=== PATIENT | female | born 1965 | race African-American/Black ===

== ENCOUNTER 2017-01-29 15:43 | Emergency (ER) | payer BC ==
[~2017-01-29] VITALS: Ht 154.9 cm; Wt 81.6 kg
[~2017-01-29 15:43] MED LIST: AMLO10TA2 PO; AMLO5TAB4 PO; CARV12.52 PO; CHOL10002 PO; CLON0.1T PO; FLUO20CA8 PO; HYDR-2869 PO; HYDR12.53 PO; LISI10TA2 PO; LISI40TA PO; MELA3TAB PO; METO-269 PO; PANT40TA5 PO; TRAM50TA PO; amlodipine; hctz; hydralazine; metoprolol; prozac
[2017-01-29] MEDS ORDERED: FLUT12AE IH (16:05)
[2017-01-29] MEDS ORDERED: PROAIR HFA8.5 GM INH (16:05)
[2017-01-29] MEDS ORDERED: HYDR-971 PO (16:06)
[2017-01-29 17:30] LABS: BASO % 1 % (0-3); EOS % 4 % (0-3); HEMATOCRIT 43.1 % (36.0-47.0); HEMOGLOBIN 13.7 g/dL (12.0-15.5); LYMPH # 1.4 x10^3/uL (1.0-4.8); LYMPH % 24 % (24-48); MEAN CORPUSCULAR HEMOGLOBIN 27 pg (25-35); MEAN CORPUSCULAR HGB CONC 32 g/dL (31-37); MEAN CORPUSCULAR VOLUME 84 fL (79-100); MONO % 14 % (0-9); NEUT % 58 % (31-73); PLATELET COUNT 265 x10^3/uL (140-400); RED BLOOD COUNT 5.12 x10^6/uL (3.50-5.40); RED CELL DISTRIBUTION WIDTH 15.4 % (11.5-14.5); WHITE BLOOD COUNT 5.7 x10^3/uL (4.0-11.0)
[2017-01-29 17:31] LABS: BILIRUBIN,URINE NEGATIVE (NEG); GLUCOSE,URINE NEGATIVE (NEG); NITRITE,URINE NEGATIVE (NEG); PROTEIN,URINE 100 mg/dL (NEG-TRACE); UROBILINOGEN,URINE 0.2 mg/dL (0.2 mg/dL)
[2017-01-29 17:37] LABS: RBC,URINE 0 /HPF (0-2)
[2017-01-29 17:38] LABS: BACTERIA,URINE FEW /HPF (0-FEW); SQUAMOUS EPITHELIAL CELL,UR FEW /LPF; WBC,URINE RARE /HPF (0-4)
[2017-01-29 17:49] LABS: CALCIUM 9.4 mg/dL (8.5-10.1); CREATININE 1.7 mg/dL (0.6-1.0); GFR 38.2; POTASSIUM 4.7 mmol/L (3.5-5.1)
[2017-01-29 17:53] LABS: ALBUMIN 3.9 g/dL (3.4-5.0); ALBUMIN/GLOBULIN RATIO 0.8 (1.0-1.7); TOTAL BILIRUBIN 0.3 mg/dL (0.2-1.0); TOTAL PROTEIN 8.9 g/dL (6.4-8.2)
--- NOTE | 2017-01-29 18:02 | RAD ---
CT head without contrast Indication: Headache and hypertension. Axial imaging through the brain was performed without contrast. No prior studies are available for comparison. The ventricles and sulci are within normal limits. No sulcal effacement, midline shift or hemorrhage is detected. The cisterns are patent. Visualized paranasal sinuses are clear apart from opacification of several right side ethmoid air cells. Impression: No acute intracranial process is detected. Electronically signed by: Tim Phillips MD (Jan 29, 2017 18:00:54)
[2017-01-29] MEDS ORDERED: hydrALAZINE 20 MG/ML VIAL. IVP ONE (18:15)
[2017-01-29 19:12] VITALS: BP 194/117
--- NOTE | 2017-01-29 19:26 | PHYS DOC ---
Past Medical History Past Medical History: Asthma, GERD, Hypertension Additional Past Medical Histor: scleraderma, KIDNEY DISEASE, PULMONARY HTN Past Surgical History: Other Additional Past Surgical Histo: fibroid removal, carpel tunnel Alcohol Use: Occasionally Drug Use: None Adult General Chief Complaint Chief Complaint: DIZZY/LIGHT HEADED HPI HPI 51-year-old female with difficult to control hypertension among other medical problems presents with 12 hour history of dizziness and headache. She denies any chest pain or shortness of breath. She denies any lateralizing neurologic weakness. She states the dizziness and headache sometimes happen when her blood pressure is elevated. She has 3 different blood pressure medications that she takes reliably at home. Review of Systems Review of Systems Constitutional: Denies fever or chills [] Eyes: Denies change in visual acuity, redness, or eye pain [] HENT: Denies nasal congestion or sore throat [] Respiratory: Denies cough or shortness of breath [] Cardiovascular: No additional information not addressed in HPI [] GI: Denies abdominal pain, nausea, vomiting, bloody stools or diarrhea [] : Denies dysuria or hematuria [] Musculoskeletal: Denies back pain or joint pain [] Integument: Denies rash or skin lesions [] Neurologic: Per history of present illness [] Endocrine: Denies polyuria or polydipsia [] Current Medications Current Medications Current Medications Medications (Trade) Dose Ordered Sig/Orin Start Time Stop Time Status Last Admin Dose Admin Hydralazine HCl (Apresoline) 10 mg 1X ONCE 01/29/17 18:15 01/29/17 18:16 DC 01/29/17 18:18 10 MG Allergies Allergies Allergies Coded Allergies Type Severity Reaction Last Updated Verified No Known Drug Allergies 07/08/15 No Physical Exam Physical Exam Constitutional: Well developed, well nourished, mild distress, non-toxic appearance. [] HENT: Normocephalic, atraumatic, bilateral external ears normal, oropharynx moist, no oral exudates, nose normal. [] Eyes: PERRLA, EOMI, conjunctiva normal, no discharge. [] Neck: Normal range of motion, no tenderness, supple, no stridor. [] Cardiovascular:Heart rate regular rhythm, no murmur [] Lungs & Thorax: Bilateral breath sounds clear to auscultation [] Abdomen: Bowel sounds normal, soft, no tenderness, no masses, no pulsatile masses. [] Skin: Warm, dry, no erythema, no rash. [] Back: No tenderness, no CVA tenderness. [] Extremities: No tenderness, no cyanosis, no clubbing, ROM intact, no edema. [] Neurologic: Alert and oriented X 3, normal motor function, normal sensory function, no focal deficits noted. [] Psychologic: Affect normal, judgement normal, mood normal. [] Current Patient Data Vital Signs Vital Signs Date Time Temp Pulse Resp B/P Pulse Ox O2 Delivery O2 Flow Rate FiO2 01/29/17 18:18 74 218/138 01/29/17 17:21 16 96 Room Air 01/29/17 15:54 97.4 97.4 Lab Values Laboratory Tests Test 01/29/17 16:00 01/29/17 16:08 White Blood Count 5.7x10^3/uL (4.0-11.0) Red Blood Count 5.12x10^6/uL (3.50-5.40) Hemoglobin 13.7g/dL (12.0-15.5) Hematocrit 43.1% (36.0-47.0) Mean Corpuscular Volume 84fL (79-100) Mean Corpuscular Hemoglobin 27pg (25-35) Mean Corpuscular Hemoglobin Concent 32g/dL (31-37) Red Cell Distribution Width 15.4% (11.5-14.5) H Platelet Count 265x10^3/uL (140-400) Neutrophils (%) (Auto) 58% (31-73) Lymphocytes (%) (Auto) 24% (24-48) Monocytes (%) (Auto) 14% (0-9) H Eosinophils (%) (Auto) 4% (0-3) H Basophils (%) (Auto) 1% (0-3) Neutrophils # (Auto) 3.3x10^3uL (1.8-7.7) Lymphocytes # (Auto) 1.4x10^3/uL (1.0-4.8) Monocytes # (Auto) 0.8x10^3/uL (0.0-1.1) Eosinophils # (Auto) 0.2x10^3/uL (0.0-0.7) Basophils # (Auto) 0.0x10^3/uL (0.0-0.2) Sodium Level 139mmol/L (136-145) Potassium Level 4.7mmol/L (3.5-5.1) Chloride Level 99mmol/L (98-107) Carbon Dioxide Level 28mmol/L (21-32) Anion Gap 12 (6-14) Blood Urea Nitrogen 28mg/dL (7-20) H Creatinine 1.7mg/dL (0.6-1.0) H Estimated GFR (Cockcroft-Gault) 38.2 BUN/Creatinine Ratio 16 (6-20) Glucose Level 116mg/dL (70-99) H Calcium Level 9.4mg/dL (8.5-10.1) Total Bilirubin 0.3mg/dL (0.2-1.0) Aspartate Amino Transferase (AST) 14U/L (15-37) L Alanine Aminotransferase (ALT) 12U/L (14-59) L Alkaline Phosphatase 84U/L (46-116) Total Protein 8.9g/dL (6.4-8.2) H Albumin 3.9g/dL (3.4-5.0) Albumin/Globulin Ratio 0.8 (1.0-1.7) L Urine Collection Type Unknown Urine Color Yellow Urine Clarity Clear Urine pH 7.0 Urine Specific [place] 1.015 Urine Protein 100mg/dL (NEG-TRACE) Urine Glucose (UA) Negativemg/dL (NEG) Urine Ketones (Stick) Negativemg/dL (NEG) Urine Blood Negative (NEG) Urine Nitrite Negative (NEG) Urine Bilirubin Negative (NEG) Urine Urobilinogen Dipstick 0.2mg/dL (0.2 mg/dL) Urine Leukocyte Esterase Negative (NEG) Urine RBC 0/HPF (0-2) Urine WBC Rare/HPF (0-4) Urine Squamous Epithelial Cells Few/LPF Urine Bacteria Few/HPF (0-FEW) Urine Mucus Slight/LPF Laboratory Tests 01/29/17 16:00 Laboratory Tests 01/29/17 16:00 EKG EKG [] Radiology/Procedures Radiology/Procedures [] Impressions: PROCEDURE: HEAD WO CONTRAST CT head without contrast Indication: Headache and hypertension. Axial imaging through the brain was performed without contrast. No prior studies are available for comparison. The ventricles and sulci are within normal limits. No sulcal effacement, midline shift or hemorrhage is detected. The cisterns are patent. Visualized paranasal sinuses are clear apart from opacification of several right side ethmoid air cells. Impression: No acute intracranial process is detected. Course & Med Decision Making Course & Med Decision Making Pertinent Labs and Imaging studies reviewed. (See chart for details) [ED course: Evaluation reveals 51-year-old female in mild distress secondary to headache and dizziness. Her blood pressure was markedly elevated at 230/120 on arrival. She was given hydralazine IV which lowered her blood pressure in the 190s systolic range and patient states her symptoms have resolved. I did talk with the patient about staying in the hospital overnight however she stated she would like to go home and take her blood pressure medicine and rest. She states that she'll even stay home from work tomorrow to continue to rest and closely monitor blood pressure. I think this plan as a viable alternative to admission.] Dragon Disclaimer Dragon Disclaimer This electronic medical record was generated, in whole or in part, using a voice recognition dictation system. Departure Departure Impression: Primary Impression: Malignant essential hypertension Disposition: 01 HOME, SELF-CARE Condition: IMPROVED Referrals: CHRIS HALL (PCP) Patient Instructions: Hypertension Additional Instructions: Please take your blood pressure medication as directed. Return to the emergency department with any new or concerning symptoms. PAYTON HERNANDEZ DO Jan 29, 2017 19:26
--- NOTE | 2017-01-30 06:09 | EKG ---
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
== END 2017-01-29 19:33 | disposition home or self-care (01) ==
LOC: ER 15:43
DX: I10 Essential (primary) hypertension (principal); J45.909 Unspecified asthma, uncomplicated
CPT/HCPCS: 36415; 70450; 80053; 81001; 85027; 93005; 96374; 99285; J0360

== ENCOUNTER 2017-10-14 17:00 | Inpatient (IN) | payer BC ==
[~2017-10-14] VITALS: Ht 154.9 cm; Wt 79.2 kg
[~2017-10-14 17:00] MED LIST changes: +FLUT12AE IH; +HYDR-971 PO; -MELA3TAB PO; +MELA3TAB2 PO; +PROAIR HFA8.5 GM INH
--- NOTE | 2017-10-14 19:10 | PHYS DOC ---
Past Medical History Past Medical History: Asthma, GERD, Hypertension Additional Past Medical Histor: scleraderma, KIDNEY DISEASE, PULMONARY HTN Past Surgical History: Other Additional Past Surgical Histo: fibroid removal, carpel tunnel Alcohol Use: Occasionally Drug Use: None Adult General Chief Complaint Chief Complaint: SHORTNESS OF BREATH HPI HPI Patient is a 52 year old female who presents with sent from the office due to extremely high blood pressures she was following up on 4 some dyspnea on exertion. She has chronic hypertension takes lisinopril hydralazine carvedilol and Lasix. Also has chronic kidney failure still make urine not on dialysis. Denies chest pain or leg swelling. Her pressure initially here was around 240/ 130. Review of Systems Review of Systems Constitutional: Denies fever or chills [] Eyes: Denies change in visual acuity, redness, or eye pain [] HENT: Denies nasal congestion or sore throat [] Respiratory: Denies cough or shortness of breath [] Cardiovascular: No additional information not addressed in HPI [] GI: Denies abdominal pain, nausea, vomiting, bloody stools or diarrhea [] : Denies dysuria or hematuria [] Musculoskeletal: Denies back pain or joint pain [] Integument: Denies rash or skin lesions [] Neurologic: Denies headache, focal weakness or sensory changes [] Endocrine: Denies polyuria or polydipsia [] All other systems were reviewed and found to be within normal limits, except as documented in this note. Current Medications Current Medications Current Medications Medications (Trade) Dose Ordered Sig/Orin Start Time Stop Time Status Last Admin Dose Admin Hydralazine HCl (Apresoline Inj) 10 mg 1X ONCE 10/14/17 20:45 10/14/17 20:46 DC 10/14/17 20:48 10 MG Labetalol HCl (Normodyne) 20 mg 1X ONCE 10/14/17 19:45 10/14/17 19:47 DC 10/14/17 19:51 20 MG Morphine Sulfate 4 mg PRN Q2HR PRN 10/14/17 21:00 10/15/17 20:59 Ondansetron HCl (Zofran) 4 mg PRN Q8HRS PRN 10/14/17 21:00 10/15/17 20:59 Allergies Allergies Allergies Coded Allergies Type Severity Reaction Last Updated Verified No Known Drug Allergies 07/08/15 No Physical Exam Physical Exam Constitutional: Well developed, well nourished, no acute distress, non-toxic appearance. [] HENT: Normocephalic, atraumatic, bilateral external ears normal, oropharynx moist, no oral exudates, nose normal. [] Eyes: PERRLA, EOMI, conjunctiva normal, no discharge. [] Neck: Normal range of motion, no tenderness, supple, no stridor. [] Cardiovascular:Heart rate regular rhythm, no murmur [] Lungs & Thorax: Bilateral breath sounds clear to auscultation [] Abdomen: Bowel sounds normal, soft, no tenderness, no masses, no pulsatile masses. [] Skin: Warm, dry, no erythema, no rash. [] Back: No tenderness, no CVA tenderness. [] Extremities: No tenderness, no cyanosis, no clubbing, ROM intact, no edema. [] Neurologic: Alert and oriented X 3, normal motor function, normal sensory function, no focal deficits noted. [] Psychologic: Affect normal, judgement normal, mood normal. [] Current Patient Data Vital Signs Vital Signs Date Time Temp Pulse Resp B/P (MAP) Pulse Ox O2 Delivery O2 Flow Rate FiO2 10/14/17 21:04 81 174/107 (129) 97 Room Air 10/14/17 18:40 97.6 18 97.6 Lab Values Laboratory Tests Test 10/14/17 19:36 White Blood Count 6.5 x10^3/uL (4.0-11.0) Red Blood Count 5.35 x10^6/uL (3.50-5.40) Hemoglobin 14.4 g/dL (12.0-15.5) Hematocrit 43.9 % (36.0-47.0) Mean Corpuscular Volume 82 fL (79-100) Mean Corpuscular Hemoglobin 27 pg (25-35) Mean Corpuscular Hemoglobin Concent 33 g/dL (31-37) Red Cell Distribution Width 15.1 % (11.5-14.5) H Platelet Count 289 x10^3/uL (140-400) Neutrophils (%) (Auto) 72 % (31-73) Lymphocytes (%) (Auto) 14 % (24-48) L Monocytes (%) (Auto) 13 % (0-9) H Eosinophils (%) (Auto) 1 % (0-3) Basophils (%) (Auto) 1 % (0-3) Neutrophils # (Auto) 4.7 x10^3uL (1.8-7.7) Lymphocytes # (Auto) 0.9 x10^3/uL (1.0-4.8) L Monocytes # (Auto) 0.9 x10^3/uL (0.0-1.1) Eosinophils # (Auto) 0.1 x10^3/uL (0.0-0.7) Basophils # (Auto) 0.0 x10^3/uL (0.0-0.2) Sodium Level 137 mmol/L (136-145) Potassium Level 4.1 mmol/L (3.5-5.1) Chloride Level 97 mmol/L (98-107) L Carbon Dioxide Level 31 mmol/L (21-32) Anion Gap 9 (6-14) Blood Urea Nitrogen 18 mg/dL (7-20) Creatinine 1.4 mg/dL (0.6-1.0) H Estimated GFR (Cockcroft-Gault) 47.6 BUN/Creatinine Ratio 13 (6-20) Glucose Level 88 mg/dL (70-99) Calcium Level 10.1 mg/dL (8.5-10.1) Total Bilirubin 0.4 mg/dL (0.2-1.0) Aspartate Amino Transferase (AST) 20 U/L (15-37) Alanine Aminotransferase (ALT) 18 U/L (14-59) Alkaline Phosphatase 80 U/L (46-116) Troponin I Quantitative 0.046 ng/mL (0.000-0.055) Total Protein 9.4 g/dL (6.4-8.2) H Albumin 4.1 g/dL (3.4-5.0) Albumin/Globulin Ratio 0.8 (1.0-1.7) L Laboratory Tests 10/14/17 19:36 Laboratory Tests 10/14/17 19:36 EKG EKG EKG shows sinus rhythm rate of 82 no STEMI no strain pattern QTC 459 my interpretation[] Radiology/Procedures Radiology/Procedures Chest x-ray[some cardiomegaly but no charleen pulmonary edema or failure interpretation Course & Med Decision Making Course & Med Decision Making Pertinent Labs and Imaging studies reviewed. (See chart for details) Patient is essentially asymptomatic. She has no complaints of chest pain leg edema or shortness of breath at this time. We gave her 20 of labetalol with improvement in her blood pressure to about 180 over 1 tensest systolic over diastolic and we will give an additional 10 of hydralazine. I plan to contact Dr. aHll to discuss further management plans[] 8:[address] Hall prefers to be admitted for 24 hours for further management. Dragon Disclaimer Dragon Disclaimer This electronic medical record was generated, in whole or in part, using a voice recognition dictation system. Departure Departure Impression: Primary Impression: Hypertensive urgency Additional Impression: Chronic renal insufficiency Disposition: ADMITTED INPATIENT Admitting Physician: Mitzy Neal Condition: IMPROVED Referrals: CHRIS HALL (PCP) Problem Qualifiers MAX MCKAY MD Oct 14, 2017 19:10
[2017-10-14] MEDS ORDERED: LABETALOL 20 MG/4 ML DISP.SYRIN. IVP ONE (19:45)
[2017-10-14 19:53] LABS: BASO % 1 % (0-3); EOS % 1 % (0-3); HEMATOCRIT 43.9 % (36.0-47.0); HEMOGLOBIN 14.4 g/dL (12.0-15.5); LYMPH # 0.9 x10^3/uL (1.0-4.8); LYMPH % 14 % (24-48); MEAN CORPUSCULAR HEMOGLOBIN 27 pg (25-35); MEAN CORPUSCULAR HGB CONC 33 g/dL (31-37); MEAN CORPUSCULAR VOLUME 82 fL (79-100); MONO % 13 % (0-9); NEUT % 72 % (31-73); PLATELET COUNT 289 x10^3/uL (140-400); RED BLOOD COUNT 5.35 x10^6/uL (3.50-5.40); RED CELL DISTRIBUTION WIDTH 15.1 % (11.5-14.5); WHITE BLOOD COUNT 6.5 x10^3/uL (4.0-11.0)
[2017-10-14 20:06] LABS: CALCIUM 10.1 mg/dL (8.5-10.1); CREATININE 1.4 mg/dL (0.6-1.0); GFR 47.6; POTASSIUM 4.1 mmol/L (3.5-5.1)
[2017-10-14 20:12] LABS: ALBUMIN 4.1 g/dL (3.4-5.0); ALBUMIN/GLOBULIN RATIO 0.8 (1.0-1.7); TOTAL BILIRUBIN 0.4 mg/dL (0.2-1.0); TOTAL PROTEIN 9.4 g/dL (6.4-8.2)
[2017-10-14] MEDS ORDERED: hydrALAZINE 20 MG/ML VIAL. IVP ONE (20:45)
[2017-10-14] MEDS ORDERED: ONDANSETRON PF 4 MG/2 ML VIAL. IV PRN (21:00)
[2017-10-14] MEDS ORDERED: MORPHINE SULFATE 4 MG/ML DISP.SYRIN. IV PRN (21:00)
[2017-10-14 21:35] VITALS: BP 176/113
[2017-10-14] MEDS ORDERED: MOME13HF IH (21:42)
[2017-10-14 23:30] VITALS: BP 144/96
[2017-10-15 03:30] VITALS: BP 196/123
[2017-10-15] MEDS ORDERED: hydrALAZINE 25 MG TABLET PO PRN (03:45)
[2017-10-15] MEDS: PANTOPRAZOLE 40 MG TABLET.DR. PO SCH (04:03)
--- NOTE | 2017-10-15 07:01 | EKG ---
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
[2017-10-15 07:41] VITALS: BP 162/100
--- NOTE | 2017-10-15 08:19 | RAD ---
Portable chest, 10/14/2017: History: Shortness of breath, hypertensive crisis Comparison is made to a study from 06/15/2016. The heart is enlarged. The pulmonary vascularity is normal. No pulmonary infiltrates are seen. There is no evidence of pleural fluid. Moderate scattered degenerative changes are present in the spine. IMPRESSION: 1. Cardiomegaly. 2. No acute abnormality is detected.
[2017-10-15] MEDS ORDERED: NON FORMULARY ITEM (Fluticasone Propionate (Flovent 110MCG Hfa) 2 PUFF) IH SCH (09:00)
[2017-10-15] MEDS ORDERED: NON FORMULARY ITEM (Albuterol Sulfate (Proair Hfa Inhaler) 1 PUFF) INH PRN (09:00)
[2017-10-15] MEDS ORDERED: METOPROLOL TART IMMED RELEASE 25 MG TABLET. PO SCH (09:00)
[2017-10-15] MEDS ORDERED: PANTOPRAZOLE 40 MG TABLET.DR. PO SCH (09:00)
[2017-10-15] MEDS ORDERED: NON FORMULARY ITEM (Mometasone/Formoterol (Dulera 200 Mcg/5 Mcg Inhaler) 2 PUFF) IH SCH (09:00)
[2017-10-15] MEDS ORDERED: ALBUTEROL SULFATE 2.5 MG/3 ML NEBU. NEB PRN (09:15)
[2017-10-15] MEDS: CHOLECALCIFEROL (VITAMIN D3) 1,000 UNIT TABLET PO SCH (09:34)
[2017-10-15] MEDS: FLUoxetine HCL 20 MG CAPSULE PO SCH ×2 (09:35→21:11)
[2017-10-15] MEDS: LISINOPRIL 40 MG TABLET. PO SCH (09:35)
[2017-10-15] MEDS: HYDROcodone/APAP 5/325MG 1 TAB TABLET PO PRN ×2 (09:40→15:14)
--- NOTE | 2017-10-15 09:52 | PDOC ---
Provider Note Provider Note Pt seen .H&P dictated. #[id number] MIRI KNOTT MD Oct 15, 2017 09:52
--- NOTE | 2017-10-15 11:02 | HP ---
ADMIT DATE: 10/14/2017 PATIENT LOCATION: [facility]. ATTENDING PHYSICIAN: Dr. Knott. PRIMARY CARE PHYSICIAN: Dr. Abdul. REASON FOR ADMISSION TO THE HOSPITAL: Accelerated hypertension. HISTORY OF PRESENT ILLNESS: The patient is a 52-year-old female, patient of Dr. Abdul. She has history of hypertension, scleroderma, asthma, GERD and pulmonary hypertension. The patient had seen Dr. Bradly Marcelino of Renal and Dr. Renteria, Pulmonology, in the past. She had seen Dr. Abdul in the office yesterday, her blood pressure was high at 190/110 and was sent to the Emergency Room. The patient had a workup including EKG, chest x-ray, did not show any acute changes. The patient's blood pressure was still high, we decided to admit the patient. The patient was given IV hydralazine, and blood pressure was still high this morning, and she is asymptomatic at this point. PAST MEDICAL HISTORY: As mentioned, she has history of hypertension, scleroderma, GERD, pulmonary hypertension. She was in the hospital last year with similar complaints, and she had a workup done including CT chest, echocardiogram, ultrasound of the kidneys, which did not show any major problems except for left ventricular hypertrophy. PAST SURGICAL HISTORY: Carpal tunnel, fibroids removed. She is not on any special medications for scleroderma. ALLERGIES: None. MEDICATIONS AT HOME: The patient is on amlodipine 5 mg tablet, she takes 10 mg at bedtime. Coreg 25 mg twice a day, lisinopril 40 mg daily, fluoxetine 20 mg daily, vitamin D takes 2000 daily, hydrocodone for pain, melatonin 10 mg at bedtime. Dulera 200/5 two puffs twice a day, Protonix 40 mg daily, albuterol 2 puffs 4 times daily. PERSONAL HISTORY: No history of smoking, alcohol, drug abuse. FAMILY HISTORY: Positive for hypertension. REVIEW OF SYMPTOMS: CARDIAC: No chest pain. LUNGS: No shortness of breath. GASTROINTESTINAL: Has reflux symptoms. Rest of the 14 systems were reviewed. She has been complaining of sore throat in the last couple of days and swelling in the ankles. PHYSICAL EXAMINATION: GENERAL: She is not in any distress. Pleasant. VITAL SIGNS: Show temperature 97, pulse 88, respirations 18, blood pressure 220/127, pulse ox 97 on room air. HEENT: Head is atraumatic. Pupils equal. Oral cavity: No congestion. NECK: Supple. Thyroid not enlarged. JVD not elevated. No carotid bruit. CHEST: Symmetrical. CARDIOVASCULAR: S1, S2. No murmurs. LUNGS: Clear to auscultation. No wheezing. ABDOMEN: Soft, no mass palpable. EXTERNAL GENITALIA: Deferred. RECTAL: Deferred. EXTREMITIES: Trace edema, no calf tenderness. Pulses 1+. NEUROLOGIC: Cranial nerves intact. Power 5/5 in both upper and lower extremities. LABORATORY DATA: Shows a white count of 6, hemoglobin 14, platelets 289. Electrolytes show sodium 137, potassium 4.1, chloride 97, bicarbonate 31, BUN 18, creatinine 1.4, glucose 88. LFTs were normal. Troponin was negative. Chest x-ray shows cardiac enlargement, no infiltrates. EKG negative for ischemia. FINAL IMPRESSION: 1. Malignant hypertension. 2. History of hypertension. 3. Scleroderma. 4. Gastroesophageal reflux disease. 5. Asthma. PLAN: At this time, the patient is admitted to the hospital. Since the patient had most of workup done last admission last year, including echo, ultrasound of the kidneys and CT of the chest, CT head, we would limit the workup at this time to control the blood pressure with IV hydralazine, renal consult, renal artery Doppler as well as 24-hour urine for VMA and metanephrines. DVT prophylaxis. Probable length of stay 48 hours. MIRI KNOTT MD DR: LINCOLN/darrell JOB#: [id number] / [id number] ANDREA
[2017-10-15 11:20] VITALS: BP 155/112
[2017-10-15] MEDS: ALBUTEROL SULFATE 2.5 MG/3 ML NEBU. NEB SCH ×3 (11:42→20:18)
[2017-10-15] MEDS: CARVEDILOL 12.5 MG TABLET. PO SCH ×2 (12:00→17:59)
[2017-10-15 14:23] LABS: BILIRUBIN,URINE NEGATIVE (NEG); GLUCOSE,URINE NEGATIVE (NEG); NITRITE,URINE NEGATIVE (NEG); PROTEIN,URINE 100 mg/dL (NEG-TRACE); UROBILINOGEN,URINE 0.2 mg/dL (0.2 mg/dL)
[2017-10-15 14:37] LABS: RBC,URINE 0 /HPF (0-2)
[2017-10-15 14:38] LABS: BACTERIA,URINE 0 /HPF (0-FEW); SQUAMOUS EPITHELIAL CELL,UR OCC /LPF; WBC,URINE OCC /HPF (0-4)
[2017-10-15 15:02] VITALS: BP 165/108
--- NOTE | 2017-10-15 17:10 | RAD ---
Deep Doppler renal ultrasound, 10/15/2017: History: Hypertension Doppler interrogation of the main renal arteries was performed including grayscale, color-flow and spectral Doppler analysis. No high velocities are identified in either main renal artery to suggest significant renal artery stenosis. No parvus/tardus phenomena is evident. The right kidney measures 8.9 cm in length while the left kidney measures 9.3 cm. The kidneys demonstrate mildly increased renal parenchymal echogenicity compatible with nonspecific medical renal disease. IMPRESSION: No duplex evidence of significant renal artery stenosis.
[2017-10-15 19:42] VITALS: BP 121/87
[2017-10-15] MEDS: BUDESONIDE 0.5 MG/2 ML NEBU. NEB SCH (20:18)
[2017-10-15] MEDS ORDERED: NON FORMULARY ITEM (Melatonin 10 MG) PO SCH (21:00)
[2017-10-15] MEDS ORDERED: amLODIPine BESYLATE 10 MG TABLET PO SCH (21:00)
[2017-10-15] MEDS ORDERED: CALCIUM CARBONATE 500 MG TAB.CHEW PO PRN (21:30)
[2017-10-15 23:25] VITALS: BP 139/93
[2017-10-16] MEDS: hydrALAZINE 20 MG/ML VIAL. IVP PRN ×2 (03:06→11:42)
[2017-10-16 03:30] VITALS: BP 177/109
[2017-10-16 05:25] LABS: BASO % 1 % (0-3); EOS % 2 % (0-3); HEMATOCRIT 41.8 % (36.0-47.0); HEMOGLOBIN 13.3 g/dL (12.0-15.5); LYMPH # 1.3 x10^3/uL (1.0-4.8); LYMPH % 30 % (24-48); MEAN CORPUSCULAR HEMOGLOBIN 26 pg (25-35); MEAN CORPUSCULAR HGB CONC 32 g/dL (31-37); MEAN CORPUSCULAR VOLUME 82 fL (79-100); MONO % 18 % (0-9); NEUT % 49 % (31-73); PLATELET COUNT 285 x10^3/uL (140-400); RED BLOOD COUNT 5.09 x10^6/uL (3.50-5.40); RED CELL DISTRIBUTION WIDTH 15.1 % (11.5-14.5); WHITE BLOOD COUNT 4.4 x10^3/uL (4.0-11.0)
[2017-10-16 05:45] LABS: CALCIUM 9.4 mg/dL (8.5-10.1); GFR 31.5
[2017-10-16 07:36] VITALS: BP 136/94
[2017-10-16] MEDS: BUDESONIDE 0.5 MG/2 ML NEBU. NEB SCH (07:43)
[2017-10-16] MEDS: ALBUTEROL SULFATE 2.5 MG/3 ML NEBU. NEB SCH ×2 (07:43→11:16)
--- NOTE | 2017-10-16 09:46 | PDOC ---
PROGRESS NOTES Subjective Subjective feeling better wanting to go home Objective Objective Vital Signs Date Time Temp Pulse Resp B/P (MAP) Pulse Ox O2 Delivery O2 Flow Rate FiO2 10/16/17 07:43 98 Room Air 10/16/17 07:36 97.9 71 16 136/94 (108) 97.9 Intake and Output 10/16/17 07:00 Intake Total 1300 ml Output Total 700 ml Balance 600 ml Intake Oral 1300 ml Output Urine Total 700 ml Physical Exam Abdomen: Normal bowel sounds, Soft Heart: Regular rate, Normal S1, Normal S2 Extremities: No clubbing General: Alert HEENT: Atraumatic Lungs: Clear to auscultation MUSCULOSKELETAL: No deformity, Osteoarthritic changes both hands Neck: Supple Neuro: Normal speech Psych/Mental Status: Mental status NL Skin: No breakdown Diagnosis Problem List Problems Medical Problems: (1) Chronic renal insufficiency Status: Acute (2) Hypertensive urgency Status: Acute Assessment Assessment Problems Medical Problems: (1) Chronic renal insufficiency Status: Acute (2) Hypertensive urgency Status: Acute FINAL IMPRESSION: 1. Malignant hypertension. 2. History of hypertension. 3. Scleroderma. 4. Gastroesophageal reflux disease. 5. Asthma. 6. ELLA from htn crisis PLAN: renal artery doppler neg 24 hour urine in process. BP improved d/c home f/u office in 2 days , check kidney function , cr 2.0 today.should come down in 1 week. At this time, the patient is admitted to the hospital. Since the patient had most of workup done last admission last year, including echo, ultrasound of the kidneys and CT of the chest, CT head, we would limit the workup at this time to control the blood pressure with IV hydralazine, renal consult, renal artery Doppler as well as 24-hour urine for VMA and metanephrines. DVT prophylaxis. Probable length of stay 48 hours. Problems: Plan Plan of Care Problems Medical Problems: (1) Chronic renal insufficiency Status: Acute (2) Hypertensive urgency Status: Acute Comment Review of Relevant I have reviewed the following items leti (where applicable) has been applied. Labs Laboratory Tests Test 10/15/17 12:00 10/16/17 03:40 Urine Color Yellow Urine Clarity Clear Urine pH 8.0 Urine Specific [place] 1.015 Urine Protein 100 mg/dL (NEG-TRACE) Urine Glucose (UA) Negative mg/dL (NEG) Urine Ketones (Stick) Negative mg/dL (NEG) Urine Blood Negative (NEG) Urine Nitrite Negative (NEG) Urine Bilirubin Negative (NEG) Urine Urobilinogen Dipstick 0.2 mg/dL (0.2 mg/dL) Urine Leukocyte Esterase Trace (NEG) Urine RBC 0 /HPF (0-2) Urine WBC Occ /HPF (0-4) Urine Squamous Epithelial Cells Occ /LPF Urine Amorphous Sediment Present /HPF Urine Bacteria 0 /HPF (0-FEW) Urine Mucus Slight /LPF White Blood Count 4.4 x10^3/uL (4.0-11.0) Red Blood Count 5.09 x10^6/uL (3.50-5.40) Hemoglobin 13.3 g/dL (12.0-15.5) Hematocrit 41.8 % (36.0-47.0) Mean Corpuscular Volume 82 fL (79-100) Mean Corpuscular Hemoglobin 26 pg (25-35) Mean Corpuscular Hemoglobin Concent 32 g/dL (31-37) Red Cell Distribution Width 15.1 % (11.5-14.5) Platelet Count 285 x10^3/uL (140-400) Neutrophils (%) (Auto) 49 % (31-73) Lymphocytes (%) (Auto) 30 % (24-48) Monocytes (%) (Auto) 18 % (0-9) Eosinophils (%) (Auto) 2 % (0-3) Basophils (%) (Auto) 1 % (0-3) Neutrophils # (Auto) 2.2 x10^3uL (1.8-7.7) Lymphocytes # (Auto) 1.3 x10^3/uL (1.0-4.8) Monocytes # (Auto) 0.8 x10^3/uL (0.0-1.1) Eosinophils # (Auto) 0.1 x10^3/uL (0.0-0.7) Basophils # (Auto) 0.0 x10^3/uL (0.0-0.2) Sodium Level 133 mmol/L (136-145) Potassium Level 4.0 mmol/L (3.5-5.1) Chloride Level 95 mmol/L (98-107) Carbon Dioxide Level 26 mmol/L (21-32) Anion Gap 12 (6-14) Blood Urea Nitrogen 25 mg/dL (7-20) Creatinine 2.0 mg/dL (0.6-1.0) Estimated GFR (Cockcroft-Gault) 31.5 Glucose Level 91 mg/dL (70-99) Calcium Level 9.4 mg/dL (8.5-10.1) Medications Current Medications Albuterol Sulfate (Ventolin Neb Soln) 2.5 mg RTQID NEB Last administered on 07:43; Start 10/15/17 at 12:00 Amlodipine Besylate (Norvasc) 10 mg QHS PO Last administered on 10/15/17 21: 11; Start 10/15/17 at 21:00 Budesonide (Pulmicort) 0.5 mg RTBID NEB Last administered on 10/16/17 07:43; Start 10/15/17 at 20:00 Calcium Carbonate/ Glycine (Tums) 500 mg PRN AFTMEALHC PRN PO INDIGESTION Last administered on 10/15/17 23:00; Start 10/15/17 at 21:30 Carvedilol (Coreg) 25 mg BIDWMEALS PO Last administered on 10/15/17 17:59; Start 10/15/17 at 12:00 Hydralazine HCl (Apresoline Inj) 10 mg PRN Q4HRS PRN IVP BP > 160/91 Last administered on 10/16/17 03:06; Start 10/15/17 at 09:45 Non-Formulary Medication 10 mg QHS PO ; Start 10/15/17 at 21:00; Status UNV Vitals/I & O Vital Sign - Last 24 Hours 10/15/17 10/15/17 10/15/17 10/15/17 11:20 11:45 15:02 15:14 Temp 98.2 98.2 98.2 98.2 Pulse 80 71 Resp 18 18 B/P (MAP) 155/112 (126) 165/108 (127) Pulse Ox 98 97 94 94 O2 Delivery Room Air Room Air Room Air Room Air 10/15/17 10/15/17 10/15/17 10/15/17 15:21 16:14 17:59 19:42 Temp 97.9 97.9 Pulse 71 63 Resp 16 B/P (MAP) 165/108 121/87 (98) Pulse Ox 96 96 95 O2 Delivery Room Air Room Air Room Air 10/15/17 10/15/17 10/15/17 10/15/17 20:00 20:19 20:23 21:11 Pulse 63 B/P (MAP) 121/87 Pulse Ox 97 97 O2 Delivery Room Air Room Air Room Air 10/15/17 10/16/17 10/16/17 10/16/17 23:25 03:06 03:30 07:36 Temp 97.9 97.7 97.9 97.9 97.7 97.9 Pulse 63 66 71 Resp 16 16 16 B/P (MAP) 139/93 (108) 177/109 177/109 (131) 136/94 (108) Pulse Ox 94 94 97 O2 Delivery Room Air Room Air Room Air 10/16/17 07:43 Pulse Ox 98 O2 Delivery Room Air Intake and Output 10/15/17 10/15/17 10/16/17 15:00 23:00 07:00 Intake Total 500 ml 800 ml Output Total 100 ml 600 ml Balance 400 ml 200 ml MIRI KNOTT MD Oct 16, 2017 09:46
[2017-10-16] MEDS ORDERED: CLON0.1T PO (09:49)
[2017-10-16] MEDS ORDERED: HYDR-2869 PO (09:49)
--- NOTE | 2017-10-16 09:53 | PDOC ---
Provider Note Provider Note Discharge summary dictated. #[id number] MIRI KNOTT MD Oct 16, 2017 09:53
[2017-10-16] MEDS: CARVEDILOL 12.5 MG TABLET. PO SCH (10:08)
[2017-10-16] MEDS: CHOLECALCIFEROL (VITAMIN D3) 1,000 UNIT TABLET PO SCH (10:08)
[2017-10-16] MEDS: LISINOPRIL 40 MG TABLET. PO SCH (10:09)
[2017-10-16] MEDS: FLUoxetine HCL 20 MG CAPSULE PO SCH (10:09)
[2017-10-16] MEDS: PANTOPRAZOLE 40 MG TABLET.DR. PO SCH (10:09)
[2017-10-16 11:32] VITALS: BP 161/107
[2017-10-16 15:40] VITALS: BP 156/97
--- NOTE | 2017-10-16 16:31 | DS ---
DATE OF DISCHARGE: 10/16/2017 REASON FOR ADMISSION TO THE HOSPITAL: Malignant hypertension. CONSULTATIONS: Dr. Kelley. PROCEDURES DONE: Doppler renal arteries. HOSPITAL COURSE: The patient is a 52-year-old female with history of hypertension, scleroderma, gastric reflux disease. She was having high blood pressure, was sent to the Emergency Room, was 220/110 and was given IV hydralazine and was admitted to the floor. Her creatinine was 1.5. The patient had most of the workup done last admission last year, echo, Doppler and ultrasound of the kidneys. She had arterial Doppler of the kidneys, no renal artery stenosis. A 24-hour urine was in process for vanillylmandelic acid, VMA, and metanephrines. The patient was consulted with Renal. Creatinine from 1.5 went up to 2, but she had done the same thing in the past with hypertensive emergency and then it peaked to 2.5 last year, and came down to 1.5. The patient is feeling better, anxious to go home. Blood pressure is reasonably under control. I added hydralazine 50 mg 3 times daily and clonidine 0.1 p.r.n. for blood pressure 160/90 and recommended to take off work for 2 days, check with PCP, Dr. Abdul, in 2 days, check kidney function again in 2 days and see how she does. FINAL DIAGNOSES: 1. Malignant hypertension. 2. Acute kidney injury secondary to hypertensive crisis. 3. Scleroderma. 4. Gastroesophageal reflux disease. 5. History of depression, stable. DISPOSITION: Home. DISCHARGE MEDICATIONS: See MRAD. MIRI KNOTT MD DR: LINCOLN/darrell JOB#: [id number] / [id number] CHRIS Benitez
[2017-10-21 18:11] LABS: 5 HIAA URINE 1.8 mg/L (Undefined); 5-HIAA UR 24HR 1.8 mg/24 hr (0.0-14.9)
== END 2017-10-16 15:30 | disposition home or self-care (01) | DRG 683 ==
LOC: ER 17:00 → 6 SOUTH 21:22
PROVIDERS: ADMIT Internal Medicine; ATTEND Internal Medicine
DX: I12.9 Hypertensive chronic kidney disease with stage 1 through stage 4 chronic kidney disease, or unspecified chronic kidney disease (principal); N17.9 Acute kidney failure, unspecified; I27.20 Pulmonary hypertension, unspecified; M34.9 Systemic sclerosis, unspecified; I16.0 Hypertensive urgency; J45.909 Unspecified asthma, uncomplicated; K21.9 Gastro-esophageal reflux disease without esophagitis; F32.9 Major depressive disorder, single episode, unspecified; N18.1 Chronic kidney disease, stage 1; Z82.49 Family history of ischemic heart disease and other diseases of the circulatory system
CPT/HCPCS: 36415; 71010; 80048; 80053; 81001; 83497; 83835; 84484; 84585; 85025; 87086; 93005; 93975; 94250; 94640; 96374; 96375; J0360; J3490; J7613; J7626; 99285-25

== ENCOUNTER 2018-07-05 22:47 | Emergency (ER) | payer BC ==
[2018-07-06] MEDS: cloNIDine HCL 0.1 MG TABLET PO (00:05)
[2018-07-06 00:21] LABS: ADD MAN DIFF? NO
[2018-07-06 00:32] LABS: BASO % 1 % (0-3); EOS # 0.1 x10^3/uL (0.0-0.7); EOS % 3 % (0-3); HEMATOCRIT 39.6 % (36.0-47.0); HEMOGLOBIN 13.3 g/dL (12.0-15.5); LYMPH # 1.2 x10^3/uL (1.0-4.8); LYMPH % 25 % (24-48); MEAN CORPUSCULAR HEMOGLOBIN 28 pg (25-35); MEAN CORPUSCULAR HGB CONC 34 g/dL (31-37); MEAN CORPUSCULAR VOLUME 84 fL (79-100); MONO # 0.6 x10^3/uL (0.0-1.1); MONO % 13 % (0-9); NEUT # 2.8 x10^3uL (1.8-7.7); NEUT % 59 % (31-73); PLATELET COUNT 249 x10^3/uL (140-400); RED BLOOD COUNT 4.74 x10^6/uL (3.50-5.40); RED CELL DISTRIBUTION WIDTH 14.3 % (11.5-14.5); WHITE BLOOD COUNT 4.7 x10^3/uL (4.0-11.0)
[2018-07-06 00:34] LABS: ANION GAP 11 (6-14); BLOOD UREA NITROGEN 19 mg/dL (7-20); BUN/CREATININE RATIO 13 (6-20); CALCIUM 9.1 mg/dL (8.5-10.1); CARBON DIOXIDE 23 mmol/L (21-32); CHLORIDE 100 mmol/L (98-107); CREATININE 1.5 mg/dL (0.6-1.0); GFR 43.8; GLUCOSE 92 mg/dL (70-99); POTASSIUM 4.3 mmol/L (3.5-5.1); SODIUM 134 mmol/L (136-145)
[2018-07-06 00:40] LABS: ALBUMIN 3.3 g/dL (3.4-5.0); ALBUMIN/GLOBULIN RATIO 0.7 (1.0-1.7); ALK PHOS 72 U/L (46-116); ALT (SGPT) 11 U/L (14-59); AST (SGOT) 13 U/L (15-37); TOTAL BILIRUBIN 0.4 mg/dL (0.2-1.0); TOTAL PROTEIN 7.9 g/dL (6.4-8.2)
== END 2018-07-06 02:05 | disposition home or self-care (01) ==
LOC: ER 07-06 02:05
DX: I12.9 Hypertensive chronic kidney disease with stage 1 through stage 4 chronic kidney disease, or unspecified chronic kidney disease (principal); Z86.73 Personal history of transient ischemic attack (TIA), and cerebral infarction without residual deficits
CPT/HCPCS: 36415; 80053; 85025; 99284

== ENCOUNTER 2019-01-12 16:33 | Inpatient (IN) | payer BC ==
[~2019-01-12] VITALS: Ht 154.9 cm; Wt 70.8 kg
[~2019-01-12 16:33] MED LIST changes: +ALBU2.5V8 INH; -AMLO10TA2 PO; +AMLO10TA8 PO; +CARV12.511 PO; -CARV12.52 PO; +CLON0.2T PO; +HYDR-3164 PO; -HYDR-971 PO; +HYDR100T24 PO; -HYDR12.53 PO; +HYDR12.575 PO; +LISI-130 PO; -LISI40TA PO; +MOME13HF IH; -PROAIR HFA8.5 GM INH; +TRAV5DRO EACHEYE
[2019-01-12] MEDS ORDERED: hydrALAZINE 20 MG/ML VIAL. IVP ONE (17:15)
[2019-01-12 17:18] LABS: BASO % 1 % (0-3); EOS # 0.1 x10^3/uL (0.0-0.7); EOS % 2 % (0-3); HEMATOCRIT 41.4 % (36.0-47.0); HEMOGLOBIN 13.2 g/dL (12.0-15.5); LYMPH # 1.1 x10^3/uL (1.0-4.8); LYMPH % 22 % (24-48); MEAN CORPUSCULAR HEMOGLOBIN 26 pg (25-35); MEAN CORPUSCULAR HGB CONC 32 g/dL (31-37); MEAN CORPUSCULAR VOLUME 82 fL (79-100); MONO # 0.7 x10^3/uL (0.0-1.1); MONO % 14 % (0-9); NEUT # 3.2 x10^3uL (1.8-7.7); NEUT % 62 % (31-73); PLATELET COUNT 225 x10^3/uL (140-400); RED BLOOD COUNT 5.04 x10^6/uL (3.50-5.40); WHITE BLOOD COUNT 5.2 x10^3/uL (4.0-11.0)
--- NOTE | 2019-01-12 17:47 | PHYS DOC ---
Past Medical History Past Medical History: Asthma, Depression, Hypertension, Renal Failure Additional Past Medical Histor: Scleroderma Past Surgical History: Other Additional Past Surgical Histo: Fibroids Alcohol Use: Occasionally Drug Use: None Adult General Chief Complaint Chief Complaint: HYPERTENSION HPI HPI Patient is a 53 year old female who presents with hypertension. The patient was sent here by her labor employment associate after her blood pressure was found in office to be 260/160. The patient did take 0.3 of clonidine. This has not reduced her blood pressure to an acceptable level. She also has a headache. She denies chest pain or shortness of air. Review of Systems Review of Systems Constitutional: Denies fever or chills [] Eyes: Denies change in visual acuity, redness, or eye pain [] HENT: Denies nasal congestion or sore throat [] Respiratory: Denies cough or shortness of breath [] Cardiovascular: No additional information not addressed in HPI [] GI: Denies abdominal pain, nausea, vomiting, bloody stools or diarrhea [] : Denies dysuria or hematuria [] Musculoskeletal: Denies back pain or joint pain [] Integument: Denies rash or skin lesions [] Neurologic: Denies headache, focal weakness or sensory changes [] Endocrine: Denies polyuria or polydipsia [] All other systems were reviewed and found to be within normal limits, except as documented in this note. Current Medications Current Medications Current Medications Medications (Trade) Dose Ordered Sig/Orin Start Time Stop Time Status Last Admin Dose Admin Hydralazine HCl (Apresoline Inj) 10 mg 1X ONCE 01/12/19 17:15 01/12/19 17:16 DC 01/12/19 17:21 10 MG Allergies Allergies Allergies Coded Allergies Type Severity Reaction Last Updated Verified No Known Drug Allergies 07/08/15 No Physical Exam Physical Exam Constitutional: Well developed, well nourished, no acute distress, non-toxic appearance. [] HENT: Normocephalic, atraumatic, bilateral external ears normal, oropharynx moist, no oral exudates, nose normal. [] Eyes: PERRLA, EOMI, conjunctiva normal, no discharge. [] Neck: Normal range of motion, no tenderness, supple, no stridor. [] Cardiovascular:Heart rate regular rhythm, no murmur [] Lungs & Thorax: Bilateral breath sounds clear to auscultation [] Abdomen: Bowel sounds normal, soft, no tenderness, no masses, no pulsatile masses. [] Skin: Warm, dry, no erythema, no rash. [] Back: No tenderness, no CVA tenderness. [] Extremities: No tenderness, no cyanosis, no clubbing, ROM intact, no edema. [] Neurologic: Alert and oriented X 3, normal motor function, normal sensory function, no focal deficits noted. [] Psychologic: Affect normal, judgement normal, mood normal. [] Current Patient Data Vital Signs Vital Signs Date Time Temp Pulse Resp B/P (MAP) Pulse Ox O2 Delivery O2 Flow Rate FiO2 01/12/19 17:21 73 230/161 01/12/19 16:50 97.6 20 96 Room Air 97.6 Lab Values Laboratory Tests Test 01/12/19 17:10 White Blood Count 5.2 x10^3/uL (4.0-11.0) Red Blood Count 5.04 x10^6/uL (3.50-5.40) Hemoglobin 13.2 g/dL (12.0-15.5) Hematocrit 41.4 % (36.0-47.0) Mean Corpuscular Volume 82 fL (79-100) Mean Corpuscular Hemoglobin 26 pg (25-35) Mean Corpuscular Hemoglobin Concent 32 g/dL (31-37) Red Cell Distribution Width 15.0 % (11.5-14.5) H Platelet Count 225 x10^3/uL (140-400) Neutrophils (%) (Auto) 62 % (31-73) Lymphocytes (%) (Auto) 22 % (24-48) L Monocytes (%) (Auto) 14 % (0-9) H Eosinophils (%) (Auto) 2 % (0-3) Basophils (%) (Auto) 1 % (0-3) Neutrophils # (Auto) 3.2 x10^3uL (1.8-7.7) Lymphocytes # (Auto) 1.1 x10^3/uL (1.0-4.8) Monocytes # (Auto) 0.7 x10^3/uL (0.0-1.1) Eosinophils # (Auto) 0.1 x10^3/uL (0.0-0.7) Basophils # (Auto) 0.0 x10^3/uL (0.0-0.2) Laboratory Tests 01/12/19 17:10 EKG EKG [] Radiology/Procedures Radiology/Procedures [] Course & Med Decision Making Course & Med Decision Making Pertinent Labs and Imaging studies reviewed. (See chart for details) []The patient was given hydralazine in the emergency department to reduce her blood pressure. Dr. Neal has accepted her to his service. The patient will be admitted for further evaluation of this hypertension. Dragon Disclaimer Dragon Disclaimer This electronic medical record was generated, in whole or in part, using a voice recognition dictation system. Departure Departure Impression: Primary Impression: HTN (hypertension) Disposition: ADMITTED INPATIENT Admitting Physician: Mitzy Neal Condition: GOOD Referrals: CHRIS HALL (PCP) DELIO TAPIA APRN Jan 12, 2019 17:47
[2019-01-12] MEDS ORDERED: IV NORMAL SALINE 1000ML BAG 1,000 ML IV SCH (17:49)
[2019-01-12] MEDS ORDERED: ONDANSETRON PF 4 MG/2 ML VIAL. IV PRN (18:00)
[2019-01-12] MEDS ORDERED: NITROGLYCERIN SUBLINGUAL 0.4 MG BOTTLE OF 25. SL PRN (18:00)
[2019-01-12] MEDS ORDERED: ACETAMINOPHEN 325 MG TABLET. PO PRN (18:00)
[2019-01-12 18:09] LABS: CALCIUM 9.6 mg/dL (8.5-10.1); CREATININE 1.6 mg/dL (0.6-1.0); GFR 40.6; POTASSIUM 4.3 mmol/L (3.5-5.1)
[2019-01-12 18:23] LABS: ALBUMIN 3.3 g/dL (3.4-5.0); ALBUMIN/GLOBULIN RATIO 0.7 (1.0-1.7); TOTAL BILIRUBIN 0.5 mg/dL (0.2-1.0); TOTAL PROTEIN 7.9 g/dL (6.4-8.2)
[2019-01-12 19:20] VITALS: BP 192/121
[2019-01-12 19:34] VITALS: BP 99/66
[2019-01-12] MEDS ORDERED: CLON0.3T PO (20:20)
[2019-01-12] MEDS ORDERED: hydrALAZINE 20 MG/ML VIAL. IVP PRN (20:45)
[2019-01-12] MEDS ORDERED: NON FORMULARY ITEM (Fluticasone Propionate (Flovent 110MCG Hfa) 2 PUFF) IH SCH (21:00)
[2019-01-12] MEDS: CARVEDILOL 12.5 MG TABLET. PO SCH (21:00)
--- NOTE | 2019-01-12 21:05 | NUR ---
Pt admitted to room 209 with Hypertension, a/ox4. Denies pain at this time. pt oriented to unit, staff ,explained poc. callight in place will monitor. pmrn
[2019-01-12] MEDS: LATANOPROST 0.005% OPHTH SOLUTION 2.5ML BOTTLE. OU SCH (21:19)
[2019-01-12] MEDS: cloNIDine HCL 0.3 MG TABLET PO SCH (21:20)
[2019-01-12] MEDS: amLODIPine BESYLATE 5 MG TABLET PO SCH (21:21)
[2019-01-12] MEDS: FLUoxetine HCL 20 MG CAPSULE PO SCH (21:22)
[2019-01-12 23:40] VITALS: BP 118/76
[2019-01-13] VITALS (12 sets, daily range): BP systolic 76–166; BP diastolic 46–105
[2019-01-13] MEDS: HYDROcodone/APAP 5/325MG 1 TAB TABLET PO PRN (05:31)
[2019-01-13] MEDS: BUDESONIDE 0.5 MG/2 ML NEBU. NEB SCH ×2 (06:51→08:38)
[2019-01-13] MEDS: PANTOPRAZOLE 40 MG TABLET.DR. PO SCH (07:18)
[2019-01-13] MEDS: CARVEDILOL 12.5 MG TABLET. PO SCH ×2 (08:27→17:25)
[2019-01-13] MEDS: cloNIDine HCL 0.3 MG TABLET PO SCH (08:29)
[2019-01-13] MEDS: LISINOPRIL 20 MG TABLET PO SCH (08:29)
[2019-01-13] MEDS: FLUoxetine HCL 20 MG CAPSULE PO SCH ×2 (08:29→21:25)
--- NOTE | 2019-01-13 09:47 | NUR ---
Dr. Neal here to see, spoke to her regarding applying for disability r/t Pulmonary Hypertension, Scleroderma. Vital signs retaken after medication administration BP 97/64, encouraged to call for assistance before getting up or at least sit on side of bed for minute before rising, call light within reach
--- NOTE | 2019-01-13 10:05 | PDOC ---
Provider Note Provider Note Pt seen.H&P dictated. #[id number] MIRI KNOTT MD Jan 13, 2019 10:05
--- NOTE | 2019-01-13 10:26 | HP ---
ADMIT DATE: 01/12/2019 LOCATION: Room 219. ATTENDING PHYSICIAN: Dr. Knott. PRIMARY CARE PHYSICIAN: Dr. Abdul. REASON FOR ADMISSION TO THE HOSPITAL: Malignant hypertension. HISTORY OF PRESENT ILLNESS: The patient is a 53-year-old female, a patient of Dr. Abdul. She was in this hospital a week ago for malignant hypertension. She was discharged, supposed to take clonidine 3 times daily, but states the patient is already on 5 medications to control blood pressure and she says clonidine is making her sleepy, so she is not taking clonidine in the daytime. She has seen Cardiology, Dr. Smith, yesterday in the office, blood pressure was high at 260/160, and the patient was sent to the Emergency Room and was given IV labetalol and IV hydralazine, was admitted to the cardiac floor. The patient denies chest pain. She has some chronic fatigue, chronic shortness of breath. PAST MEDICAL HISTORY: History of hypertension, chronic kidney disease stage 2, depression, scleroderma, asthma. PAST SURGICAL HISTORY: Had fibroids and she also had a CT head, ultrasound of the kidneys, echocardiogram in last 1 year. ALLERGIES: No known drug allergies. MEDICATIONS: At home, the patient is supposed to take clonidine 0.3 three times daily, but she only takes once a day at nighttime, says it makes her sleepy. Amlodipine 10 mg daily, Coreg 25 mg twice a day, clonidine 0.3 three times daily, fluoxetine 20 mg twice a day, fluticasone daily nose spray, hydralazine 100 mg three times daily, hydrocodone q.6 hours, lisinopril 40 mg daily, Protonix 40 mg daily, Travatan eyedrops each eye at bedtime. PERSONAL HISTORY: Denies smoking. Social alcohol. Denies any street drugs. FAMILY HISTORY: Positive for hypertension, heart and kidney problems. REVIEW OF SYSTEMS: CARDIAC: Has chronic fatigue, chronic shortness of breath. GASTROINTESTINAL: No nausea or vomiting. The rest of the 14-system was reviewed and negative. PHYSICAL EXAMINATION: GENERAL: The patient is not in any distress. VITAL SIGNS: At the time of admission shows temperature 97, pulse 81, respirations 20, blood pressure 230/160, 98 on room air. HEENT: Head is atraumatic. Pupils equal. Oral cavity: No congestion. NECK: Supple. Thyroid not enlarged. JVD not elevated. CHEST: Symmetrical. CARDIOVASCULAR: S1, S2. No murmurs. LUNGS: Clear to auscultation. No wheezing. ABDOMEN: Soft, bowel sounds present, no mass palpable. EXTERNAL GENITALIA: No Marcial. RECTAL: Deferred. EXTREMITIES: No calf tenderness, no edema. NEUROLOGIC: Moving all extremities. No focal deficit noted. LABORATORY DATA: Shows a white count 5, hemoglobin 13, platelets of 225. Electrolytes show sodium 135, potassium 4.3, chloride 99, bicarbonate 25, BUN 22, creatinine 1.6, glucose 90. LFTs normal. The patient had a chest x-ray last week and a CT head last week, which shows old lacunar infarct. Renal artery was one year ago, no renal artery stenosis. Ultrasound of the kidneys was 1-1/2 year ago, which was negative. FINAL IMPRESSION: 1. Refractory malignant hypertension. 2. Scleroderma. 3. Anxiety. 4. Depression. 5. Possible pulmonary hypertension. PLAN: At this time, was admit to the hospital, was given IV labetalol, IV hydralazine. The patient was admitted to cardiac floor. Cardiology has been consulted and also Nephrology to rule out secondary causes of hypertension and to monitor her blood pressure with medications. The patient says she has side effects from the medication, not taking in the daytime and frustrated as she is already on 5 medications, and see how the patient's condition improves in the next 24-48 hours. Continue IV labetalol, IV hydralazine. MIRI KNOTT MD DR: LINCOLN/darrell JOB#: [id number] / [id number] CHRIS Benitez
--- NOTE | 2019-01-13 10:34 | PDOC2 ---
BAILEE JUNE DIRECTOR RISK 01/13/19 1034: CARDIAC CONSULT DATE OF CONSULT Date of Consult DATE: 01/13/19 TIME: 09:53 REASON FOR CONSULT Reason for Consult: HTN REFERRING PHYSICIAN Referring Physician: Francie SOURCE Source: Chart review, Patient HISTORY OF PRESENT ILLNESS HISTORY OF PRESENT ILLNESS This is a pleasant 53 yo female admitted for complains of high blood pressure. Reports that she went to her quality control clerk Dr. Smith yesterday and was told to go to ED with BP noted at 278/150 and was having throbbing FERRO. Pt has decreased her intake of clonidine to only at bedtime because its making her drowsy and could not go to work during daytime. She told me that when she takes her BP at home it ranges SBP 100-140. Her hydralazine and clonidine was just recently increased. Denies any chest pain but reports that her distance with walking has decreased and gets SOA with exertion intermittently. No palpitations, dizziness or passing out. No nausea or vomiting. No recent fever or chills and no recent falls. She is not on any steroids. also is non compliant with diet eating more processed foods. PAST MEDICAL HISTORY Past Medical History Cardiovascular: HTN, Pulmonary hypertension Pulmonary: Asthma CENTRAL NERVOUS SYSTEM: Other (no pertinent hx ) GI: No pertinent hx Heme/Onc: No pertinent hx Hepatobiliary: No pertinent hx Psych: Depression Musculoskeletal: Osteoarthritis Rheumatologic: Scleroderma ENT: No pertinent hx Renal/: Chronic renal insuff ( stage III) Endocrine: No pertinent hx Dermatology: No pertinent hx FAMILY HISTORY Family History Coronary Artery Disease, Diabetes, High Cholestrol, Hypertension, Other (Lupus ) SOCIAL HISTORY Smoke: No ALCOHOL: occassional Drugs: None Lives: with Family CURRENT MEDICATIONS CURRENT MEDICATIONS Current Medications Medications (Trade) Dose Ordered Sig/Orin Route PRN Reason Start Time Stop Time Status Last Admin Dose Admin Hydralazine HCl (Apresoline Inj) 10 mg 1X ONCE IVP 01/12/19 17:15 01/12/19 17:16 DC 01/12/19 17:21 Amlodipine Besylate (Norvasc) 10 mg HS PO 01/12/19 21:00 01/12/19 21:21 Carvedilol (Coreg) 25 mg BIDWMEALS PO 01/12/19 21:00 01/13/19 08:27 Clonidine HCl (Catapres) 0.3 mg TID PO 01/12/19 21:00 01/13/19 08:29 Fluoxetine HCl (PROzac) 20 mg BID PO 01/12/19 21:00 01/13/19 08:29 Acetaminophen/ Hydrocodone Bitart (Lortab 5/325) 1 tab PRN Q4HRS PRN PO PAIN 01/12/19 20:30 01/13/19 05:31 Lisinopril (Prinivil) 40 mg DAILY PO 01/13/19 09:00 01/13/19 08:29 Pantoprazole Sodium (Protonix) 40 mg DAILYAC PO 01/13/19 07:30 01/13/19 07:18 Hydralazine HCl (Apresoline) 100 mg TID PO 01/12/19 21:00 01/13/19 08:28 Latanoprost (Xalatan) 1 drop QHS OU 01/12/19 21:00 01/12/19 21:19 Budesonide (Pulmicort) 0.5 mg RTBID NEB 01/12/19 21:00 01/13/19 08:38 ALLERGIES ALLERGIES: Coded Allergies: No Known Drug Allergies (Unverified , 07/08/15) ROS Review of System 14 point ROS evaluated with pertinent positives noted per HPI PHYSICAL EXAM General: Alert, Oriented X3, Cooperative, No acute distress HEENT: Atraumatic, Mucous membr. moist/pink Lungs: Clear to auscultation, Normal air movement Abdomen: Soft, No tenderness Extremities: No cyanosis, No edema Skin: No breakdown, No significant lesion Neuro: Normal speech, Sensation intact Psych/Mental Status: Mental status NL, Mood NL MUSCULOSKELETAL: Osteoarthritic changes both hands VITALS VITALS Vital Signs Date Time Temp Pulse Resp B/P (MAP) Pulse Ox O2 Delivery O2 Flow Rate FiO2 01/13/19 09:46 65 97/64 (75) 01/13/19 08:38 95 Room Air 01/13/19 07:00 97.6 16 97.6 01/13/19 03:19 2.0 LABS Lab: Laboratory Tests Test 01/12/19 17:10 01/12/19 17:45 White Blood Count 5.2 x10^3/uL (4.0-11.0) Red Blood Count 5.04 x10^6/uL (3.50-5.40) Hemoglobin 13.2 g/dL (12.0-15.5) Hematocrit 41.4 % (36.0-47.0) Mean Corpuscular Volume 82 fL (79-100) Mean Corpuscular Hemoglobin 26 pg (25-35) Mean Corpuscular Hemoglobin Concent 32 g/dL (31-37) Red Cell Distribution Width 15.0 % (11.5-14.5) Platelet Count 225 x10^3/uL (140-400) Neutrophils (%) (Auto) 62 % (31-73) Lymphocytes (%) (Auto) 22 % (24-48) Monocytes (%) (Auto) 14 % (0-9) Eosinophils (%) (Auto) 2 % (0-3) Basophils (%) (Auto) 1 % (0-3) Neutrophils # (Auto) 3.2 x10^3uL (1.8-7.7) Lymphocytes # (Auto) 1.1 x10^3/uL (1.0-4.8) Monocytes # (Auto) 0.7 x10^3/uL (0.0-1.1) Eosinophils # (Auto) 0.1 x10^3/uL (0.0-0.7) Basophils # (Auto) 0.0 x10^3/uL (0.0-0.2) Sodium Level 135 mmol/L (136-145) Potassium Level 4.3 mmol/L (3.5-5.1) Chloride Level 99 mmol/L (98-107) Carbon Dioxide Level 25 mmol/L (21-32) Anion Gap 11 (6-14) Blood Urea Nitrogen 22 mg/dL (7-20) Creatinine 1.6 mg/dL (0.6-1.0) Estimated GFR (Cockcroft-Gault) 40.6 BUN/Creatinine Ratio 14 (6-20) Glucose Level 90 mg/dL (70-99) Calcium Level 9.6 mg/dL (8.5-10.1) Total Bilirubin 0.5 mg/dL (0.2-1.0) Aspartate Amino Transf (AST/SGOT) 22 U/L (15-37) Alanine Aminotransferase (ALT/SGPT) 16 U/L (14-59) Alkaline Phosphatase 68 U/L (46-116) Total Protein 7.9 g/dL (6.4-8.2) Albumin 3.3 g/dL (3.4-5.0) Albumin/Globulin Ratio 0.7 (1.0-1.7) IMAGES IMAGES Deep Doppler renal ultrasound, 10/15/2017: History: Hypertension Doppler interrogation of the main renal arteries was performed including grayscale, color-flow and spectral Doppler analysis. No high velocities are identified in either main renal artery to suggest significant renal artery stenosis. No parvus/tardus phenomena is evident. The right kidney measures 8.9 cm in length while the left kidney measures 9.3 cm. The kidneys demonstrate mildly increased renal parenchymal echogenicity compatible with nonspecific medical renal disease. IMPRESSION: No duplex evidence of significant renal artery stenosis. DATE: 10/15/17 1703 ECHOCARDIOGRAM ECHOCARDIOGRAM <Conclusion> The left ventricular systolic function is normal. The Ejection Fraction is estimated at 60-65%. There is normal LV segmental wall motion. Trace to mild mitral regurgitation. Trace tricuspid regurgitation. The PA pressure was estimated at 33 mmHg. There is no evidence of significant pericardial effusion. DATE: 06/15/16 1530 ASSESSMENT/PLAN ASSESSMENT/PLAN 1. Accelerated HTN: noted 278/150 at clinic visit. Possibly rebound reaction. BP is now 97/64 2. LEVINE/pulmonary HTN: possible ILD secondary to scleroderma 3. Chronic diastolic CHF 4. Hx of scleroderma 5. CKD3: followed by nephrology as an outpt. Recommendations 1. TTE. TSH. May need CT chest, await TTE. 2. High BP likely rebound due to clonidine only being taken at hs to which it was just recently increased. Reports it makes her sleepy. Discussed compliance. 3. Agree with increasing hydralazine, Will decrease clonidine will start transdermal. and may start nitrates per BP trend. 4. Continue hydralazine, coreg, lisinopril, and norvasc. Will titrate accordingly per BP trend. 5. Will check for orthostasis 6. Dietitian consult for DASH diet DEIDRA HARDING MD 01/13/19 1756: CARDIAC CONSULT ASSESSMENT/PLAN ASSESSMENT/PLAN Patient seen and examined. Agree with above nurse practitioner note. 53-year-old woman who was previously evaluated for hypertension approximately a year and a half ago coming in with recurrent hypertension likely is a rebound due to clonidine. Continue current medical therapy with titration measures as noted above. Ultimately if she truly she's having sleepiness with her clonidine then may need to wean this off and continue only hydralazine and nitrate therapy as tolerated. Supportive care. We will follow along. BAILEE JUNE APRN Jan 13, 2019 10:34 DEIDRA HARDING MD Jan 13, 2019 17:56
[2019-01-13] MEDS ORDERED: cloNIDine TTS-2 1 PATCH PATCH TD SCH (11:00)
--- NOTE | 2019-01-13 11:02 | EKG ---
[facility] [address] [place] [address] Test Date: 2019-01-12 Test Time: 16:58:14 Pat Name: BK WILL Department: Room: 209 1 Gender: F Leaf Sticker: : [id number] Requested By: DELIO TAPIA Order Number: [id number] Reading MD: Eleno Mckenzie MD Measurements Intervals [place] Rate: 77 P: -8 NE: 132 QRS: 56 QRSD: 84 T: -44 QT: 378 QTc: 430 Interpretive Statements SINUS RHYTHM LEFT ATRIAL ABNORMALITY T ABNORMALITY IN ANTEROLATERAL LEADS INFEROLATERAL LEADS ABNORMAL ECG Electronically Signed On 01-15-2019 13:49:46 WORKDAY DIRECTOR by Eleno Mckenzie MD
--- NOTE | 2019-01-13 11:23 | CARD ---
MR#: [id number] Date of Study: 01/13/2019 Ordering Physician: MIRI KNOTT, Referring Physician: MIRI KNOTT, Tech: Gina Foster OZZIE APPROVED REPORT EXAM: Two-dimensional and M-mode echocardiogram with Doppler and color Doppler. Other Information Quality : GoodHR: 65bpm Rhythm : NSR INDICATION Hypertension/HCVD 2D DIMENSIONS RVDd3.4 (2.9-3.5cm)Left Atrium(2D)4.0 (1.6-4.0cm) IVSd1.5 (0.7-1.1cm)Aortic Root(2D)2.9 (2.0-3.7cm) LVDd3.2 (3.9-5.9cm)LVOT Diameter1.9 (1.8-2.4cm) PWd1.6 (0.7-1.1cm)LVDs1.7 (2.5-4.0cm) FS (%) 48.0 %SV33.1 ml LVEF(%)80.6 (>50%) M-Mode DIMENSIONS Left Atrium(MM)3.61 (2.5-4.0cm)Aortic Root3.54 (2.2-3.7cm) Aortic Valve AoV Peak Maxim.119.8cm/sAoV VTI24.1cm AO Peak GR.5.7mmHgLVOT Peak Maxim.110.1cm/s AO Mean GR.3mmHgAVA (VMAX)2.56cm2 SABINE (VTI)2.60cm2 Mitral Valve MV E Lsfwvhro34.2cm/sMV DECEL [id number] MV A Qnavegil42.2cm/sE/A Ratio1.1 MV A Wmbqawte004jh Pulmonary Valve PV Peak Qysrbsum58.6cm/s Tricuspid Valve TR P. Udyenzsb180jl/sRAP ZEMMQHZN6dtRt TR Peak Gr.32cgMxAYYR97tsDm LEFT VENTRICLE The left ventricle cavity is small. There is moderate concentric left ventricular hypertrophy. The le ft ventricular systolic function is normal and the ejection fraction is within normal range. The Ejec tion Fraction is 65-70%. There is normal LV segmental wall motion. Transmitral Doppler flow pattern i s Grade II-pseudonormal filling dynamics. RIGHT VENTRICLE The right ventricle is normal size. There is normal right ventricular wall thickness. The right ventr icular systolic function is normal. ATRIA The left atrium is mildly dilated. The right atrium is moderately dilated. Atrial septal aneurysm is present. Cannot rule out interatrial shunting. AORTIC VALVE The aortic valve is normal in structure and function. The aortic valve is trileaflet. Doppler and Col or Flow revealed no significant aortic regurgitation. There is no significant aortic valvular stenosi s. MITRAL VALVE Mitral annular calcification is mild. There is no evidence of mitral valve prolapse. There is no mitr al valve stenosis. Doppler and Color-flow revealed trace mitral regurgitation. TRICUSPID VALVE The tricuspid valve is normal in structure and function. Doppler and Color Flow revealed trace tricus pid regurgitation. The PA pressure was estimated at 26 mmHg. There is no tricuspid valve prolapse or vegetation. There is no tricuspid valve stenosis. PULMONIC VALVE Pulmonic valve not well visualized. GREAT VESSELS The aortic root is normal in size. The ascending aorta is normal in size. The IVC is normal in size a nd collapses >50% with inspiration. PERICARDIAL EFFUSION There is no evidence of significant pericardial effusion. Critical Notification Critical Value: No <Conclusion> There is moderate concentric left ventricular hypertrophy. The left ventricular systolic function is normal and the ejection fraction is within normal range. Th e Ejection Fraction is 65-70%. There is normal LV segmental wall motion. Atrial septal aneurysm is present. Cannot rule out interatrial shunting. Signed by : Eleno Mckenzie, Electronically Approved : 01/13/2019 11:22:59
--- NOTE | 2019-01-13 12:14 | EKG ---
[facility] [address] [place] [address] Test Date: 2019-01-13 Test Time: 11:09:40 Pat Name: BK WILL Department: Room: 209 1 Gender: F Probate Clerk: KERI : 1965 Requested By: BAILEE JUNE Order Number: [id number] Reading MD: Eleno Mckenzie MD Measurements Intervals [place] Rate: 62 P: 37 MI: 148 QRS: 65 QRSD: 92 T: 52 QT: 474 QTc: 484 Interpretive Statements SINUS RHYTHM NON-SPECIFIC ST/T CHANGES Electronically Signed On 01-13-2019 16:03:08 GARLAND MAKER by Eleno Mckenzie MD
--- NOTE | 2019-01-13 12:51 | RAD ---
EXAM: Maher scale and color Doppler renal artery sonogram. HISTORY: Hypertension. TECHNIQUE: Maher scale and color Doppler sonographic imaging of the kidneys and renal arteries with spectral waveform analysis was performed. COMPARISON: 06/17/2016. FINDINGS: The right kidney measures 8.9 cm dysj-us-lqvy. Left kidney measures 10.6 cm nqgm-ts-fndd. The renal parenchyma is echogenic. No solid or cystic renal lesion is seen. There is no hydronephrosis. The bladder is unremarkable. There are normal bilateral renal artery peak systolic velocities and renal artery to aorta velocity ratios. IMPRESSION: 1. Suspected mild right renal atrophy. 2. Echogenic renal fracture, a finding which can be seen with medical renal disease. 3. No Doppler evidence of greater than 60 percent stenosis within the renal arteries. Electronically signed by: Jackie Lombardo MD (01/13/2019 12:48 PM) [id number]
--- NOTE | 2019-01-13 12:51 | RAD ---
EXAM: Maher scale and color Doppler renal artery sonogram. HISTORY: Hypertension. TECHNIQUE: Maher scale and color Doppler sonographic imaging of the kidneys and renal arteries with spectral waveform analysis was performed. COMPARISON: 06/17/2016. FINDINGS: The right kidney measures 8.9 cm gvjf-jr-ymyp. Left kidney measures 10.6 cm medh-xr-tfoi. The renal parenchyma is echogenic. No solid or cystic renal lesion is seen. There is no hydronephrosis. The bladder is unremarkable. There are normal bilateral renal artery peak systolic velocities and renal artery to aorta velocity ratios. IMPRESSION: 1. Suspected mild right renal atrophy. 2. Echogenic renal fracture, a finding which can be seen with medical renal disease. 3. No Doppler evidence of greater than 60 percent stenosis within the renal arteries. Electronically signed by: Jackie Lombardo MD (01/13/2019 12:48 PM) [id number]
--- NOTE | 2019-01-13 13:25 | NUR ---
SS following for discharge planning. SS reviewed pt's chart. Pt is from home with spouse and currently on room air. No PT/OT ordered at this time. SS will continue to follow for pending discharge needs.
--- NOTE | 2019-01-13 14:50 | PDOC2 ---
CONSULT Date of Consult Date of Consult DATE: 01/13/19 TIME: 14:45 Reason for Consult Reason for Consult: HTN AND CKD Referring Physician Referring Physician: HEDY Identification/Chief Complaint Chief Complaint HIGH BP Source Source: Chart review, Patient History of Present Illness Reason for Visit: THIS IS A 53 YR OLD WITH CKD STAGE 3 WITH CR BASELINE OF ABOUT 1.6-2.0. IT IS IN THAT RANGE NOW WHILE HERE. SHE WAS AT CARDIOLOGY YESTERDAY AND NOTED TO HAVE A BP OF 260/160. STATED THAT SHE HAS BEEN COMPLIANT WITH HER MEDS. SHE WAS SENT TO THE ER AND NOW ADMITTED. HX PERTINENT FOR SCLERODERMA AND SHE STATES THAT SHE HAS BEEN TAKING HER MEDS WHICH DOES INCLUDE AN LARISSA-I. LYTES ARE STABLE. NO OTHER SPECIFIC COMPLAINTS GIVEN. NO OTHER HX NOTED. NO NEPHROTOXINS OR OTC COLD MEDICATIONS Past Medical History Cardiovascular: HTN, Pulmonary hypertension Pulmonary: Asthma CENTRAL NERVOUS SYSTEM: Other GI: No pertinent hx Heme/Onc: No pertinent hx Hepatobiliary: No pertinent hx Psych: Depression Musculoskeletal: Osteoarthritis Rheumatologic: No pertinent hx Renal/: Chronic renal insuff Endocrine: No pertinent hx Past Surgical History Past Surgical History: No pertinent history Family History Family History: Coronary Artery Disease, Diabetes, High Cholestrol, Hypertension, Other Social History No ALCOHOL: occassional Drugs: None Lives: with Family Domestic Violence: Neg Current Problem List Problem List Problems Medical Problems: (1) HTN (hypertension) Status: Acute Current Medications Current Medications Current Medications Hydralazine HCl (Apresoline Inj) 10 mg 1X ONCE IVP Last administered on at 17:21; Start 01/12/19 at 17:15; Stop 01/12/19 at 17:16; Status DC Ondansetron HCl (Zofran) 4 mg PRN Q8HRS PRN IV NAUSEA/VOMITING; Start 01/12/19 at 18:00; Stop 01/13/19 at 17:59 Sodium Chloride 1,000 ml @ 100 mls/hr Q10H IV ; Start 01/12/19 at 17:49; Stop 01/13/19 at 07:12; Status DC Acetaminophen (Tylenol) 650 mg PRN Q4HRS PRN PO FEVER Last administered on 01/13at 11:58; Start 01/12/19 at 18:00; Stop 01/13/19 at 17:59 Nitroglycerin (Nitrostat) 0.4 mg PRN Q5MIN PRN SL CHEST PAIN; Start 01/12/19 at 18:00; Stop 01/13/19 at 17:59 Amlodipine Besylate (Norvasc) 10 mg HS PO Last administered on 01/12/19at 21:21 ; Start 01/12/19 at 21:00 Carvedilol (Coreg) 25 mg BIDWMEALS PO Last administered on 01/13/19 08:27; Start 01/12/19 at 21:00 Clonidine HCl (Catapres) 0.3 mg TID PO Last administered on 01/13/19 08:29; Start 01/12/19 at 21:00; Stop 01/13/19 at 10:26; Status DC Fluoxetine HCl (PROzac) 20 mg BID PO Last administered on 01/13/19 08:29; Start 01/12/19 at 21:00 Acetaminophen/ Hydrocodone Bitart (Lortab 5/325) 1 tab PRN Q4HRS PRN PO PAIN Last administered on 01/13/19 05:31; Start 01/12/19 at 20:30 Lisinopril (Prinivil) 40 mg DAILY PO Last administered on 01/13/19 08:29; Start 01/13/19 at 09:00 Pantoprazole Sodium (Protonix) 40 mg DAILYAC PO Last administered on 01/13/19 07:18; Start 01/13/19 at 07:30 Non-Formulary Medication (Fluticasone Propionate (Flovent 110MCG Hfa)) 2 puff BID IH ; Start 01/12/19 at 21:00; Status UNV Hydralazine HCl (Apresoline) 100 mg TID PO Last administered on 01/13/19 08:28 ; Start 01/12/19 at 21:00 Latanoprost (Xalatan) 1 drop QHS OU Last administered on 01/12/19 21:19; Start 01/12/19 at 21:00 Hydralazine HCl (Apresoline Inj) 10 mg PRN Q4HRS PRN IVP ELEVATED BP, SEE COMMENTS; Start 01/12/19 at 20:45 Budesonide (Pulmicort) 0.5 mg RTBID NEB Last administered on 2/12/19at 08:38; Start 01/12/19 at 21:00 Clonidine HCl (Catapres Tts-2) 1 patch WEEKLY TD Last administered on at 11:58; Start 01/13/19 at 11:00 Active Scripts Active Hydralazine Hcl 50 Mg Tablet 100 Mg PO TID 30 Days Carvedilol (Carvedilol) 12.5 Mg Tablet 25 Mg PO BIDWMEALS Reported Clonidine Hcl 0.3 Mg Tablet 0.3 Mg PO TID Travatan Z (Travoprost) 5 Ml Drops 1 Drop EACHEYE QHS glaucoma Lisinopril 40 Mg Tablet 1 Tab PO DAILY Hollins 5-325 Tablet (Acetaminophen/Hydrocodone Bitart) 1 Each Tablet 1-2 Tab PO Q4-6HRS Flovent 110MCG Hfa (Fluticasone Propionate) 12 Gm Aer.w.adap 2 Puff IH BID Norvasc (Amlodipine Besylate) 5 Mg Tablet 10 Mg PO HS Vitamin D (Cholecalciferol (Vitamin D3)) 1,000 Unit Tablet 2,000 Unit PO DAILY Fluoxetine Hcl 20 Mg Capsule 1 Cap PO BID Pantoprazole Sodium 40 Mg Tablet.dr 40 Mg PO DAILY Allergies Allergies: Coded Allergies: No Known Drug Allergies (Unverified , 07/08/15) ROS Review of System FULL ROS DONE IS NEG EXCEPT FOR CONSTIPATION Physical Exam General: Alert, Oriented X3, Cooperative, No acute distress HEENT: Atraumatic, PERRLA, EOMI, Mucous membr. moist/pink Lungs: Clear to auscultation, Normal air movement Heart: Regular rate, Normal S1, Normal S2 Abdomen: Normal bowel sounds, Soft, No tenderness Extremities: No cyanosis Skin: No breakdown Neuro: Normal speech, Sensation intact, Cranial nerves 3-12 NL Psych/Mental Status: Mental status NL MUSCULOSKELETAL: No joint tenderness, No deformity Vitals VITALS Vital Signs Date Time Temp Pulse Resp B/P (MAP) Pulse Ox O2 Delivery O2 Flow Rate FiO2 01/13/19 14:03 63 92/58 (69) 01/13/19 12:06 98.4 98.4 01/13/19 08:38 95 Room Air 01/13/19 07:00 16 01/13/19 03:19 2.0 Labs Labs Laboratory Tests Test 01/12/19 17:10 01/12/19 17:45 01/13/19 10:45 White Blood Count 5.2 x10^3/uL (4.0-11.0) Red Blood Count 5.04 x10^6/uL (3.50-5.40) Hemoglobin 13.2 g/dL (12.0-15.5) Hematocrit 41.4 % (36.0-47.0) Mean Corpuscular Volume 82 fL (79-100) Mean Corpuscular Hemoglobin 26 pg (25-35) Mean Corpuscular Hemoglobin Concent 32 g/dL (31-37) Red Cell Distribution Width 15.0 % (11.5-14.5) Platelet Count 225 x10^3/uL (140-400) Neutrophils (%) (Auto) 62 % (31-73) Lymphocytes (%) (Auto) 22 % (24-48) Monocytes (%) (Auto) 14 % (0-9) Eosinophils (%) (Auto) 2 % (0-3) Basophils (%) (Auto) 1 % (0-3) Neutrophils # (Auto) 3.2 x10^3uL (1.8-7.7) Lymphocytes # (Auto) 1.1 x10^3/uL (1.0-4.8) Monocytes # (Auto) 0.7 x10^3/uL (0.0-1.1) Eosinophils # (Auto) 0.1 x10^3/uL (0.0-0.7) Basophils # (Auto) 0.0 x10^3/uL (0.0-0.2) Sodium Level 135 mmol/L (136-145) Potassium Level 4.3 mmol/L (3.5-5.1) Chloride Level 99 mmol/L (98-107) Carbon Dioxide Level 25 mmol/L (21-32) Anion Gap 11 (6-14) Blood Urea Nitrogen 22 mg/dL (7-20) Creatinine 1.6 mg/dL (0.6-1.0) Estimated GFR (Cockcroft-Gault) 40.6 BUN/Creatinine Ratio 14 (6-20) Glucose Level 90 mg/dL (70-99) Calcium Level 9.6 mg/dL (8.5-10.1) Total Bilirubin 0.5 mg/dL (0.2-1.0) Aspartate Amino Transf (AST/SGOT) 22 U/L (15-37) Alanine Aminotransferase (ALT/SGPT) 16 U/L (14-59) Alkaline Phosphatase 68 U/L (46-116) Total Protein 7.9 g/dL (6.4-8.2) Albumin 3.3 g/dL (3.4-5.0) Albumin/Globulin Ratio 0.7 (1.0-1.7) Troponin I Quantitative 0.029 ng/mL (0.000-0.055) VO-Djs-O-Type Natriuretic Peptide 74783 pg/mL (0-124) Thyroid Stimulating Hormone (TSH) 1.567 uIU/mL (0.358-3.74) Laboratory Tests Test 01/12/19 17:10 01/12/19 17:45 01/13/19 10:45 White Blood Count 5.2 x10^3/uL (4.0-11.0) Red Blood Count 5.04 x10^6/uL (3.50-5.40) Hemoglobin 13.2 g/dL (12.0-15.5) Hematocrit 41.4 % (36.0-47.0) Mean Corpuscular Volume 82 fL (79-100) Mean Corpuscular Hemoglobin 26 pg (25-35) Mean Corpuscular Hemoglobin Concent 32 g/dL (31-37) Red Cell Distribution Width 15.0 % (11.5-14.5) Platelet Count 225 x10^3/uL (140-400) Neutrophils (%) (Auto) 62 % (31-73) Lymphocytes (%) (Auto) 22 % (24-48) Monocytes (%) (Auto) 14 % (0-9) Eosinophils (%) (Auto) 2 % (0-3) Basophils (%) (Auto) 1 % (0-3) Neutrophils # (Auto) 3.2 x10^3uL (1.8-7.7) Lymphocytes # (Auto) 1.1 x10^3/uL (1.0-4.8) Monocytes # (Auto) 0.7 x10^3/uL (0.0-1.1) Eosinophils # (Auto) 0.1 x10^3/uL (0.0-0.7) Basophils # (Auto) 0.0 x10^3/uL (0.0-0.2) Sodium Level 135 mmol/L (136-145) Potassium Level 4.3 mmol/L (3.5-5.1) Chloride Level 99 mmol/L (98-107) Carbon Dioxide Level 25 mmol/L (21-32) Anion Gap 11 (6-14) Blood Urea Nitrogen 22 mg/dL (7-20) Creatinine 1.6 mg/dL (0.6-1.0) Estimated GFR (Cockcroft-Gault) 40.6 BUN/Creatinine Ratio 14 (6-20) Glucose Level 90 mg/dL (70-99) Calcium Level 9.6 mg/dL (8.5-10.1) Total Bilirubin 0.5 mg/dL (0.2-1.0) Aspartate Amino Transf (AST/SGOT) 22 U/L (15-37) Alanine Aminotransferase (ALT/SGPT) 16 U/L (14-59) Alkaline Phosphatase 68 U/L (46-116) Total Protein 7.9 g/dL (6.4-8.2) Albumin 3.3 g/dL (3.4-5.0) Albumin/Globulin Ratio 0.7 (1.0-1.7) Troponin I Quantitative 0.029 ng/mL (0.000-0.055) XE-Wuj-H-Type Natriuretic Peptide 53994 pg/mL (0-124) Thyroid Stimulating Hormone (TSH) 1.567 uIU/mL (0.358-3.74) Assessment/Plan Assessment/Plan IMP MALIGNANT HTN ? NON COMPLIANCE HX OF SCLERODERMA CKD STAGE 3 WITH CR OF 1.6-2.0 AT BASELINE AND STABLE PLAN MAXIMIZE LARISSA - I MUCH POSSIBLE ENC COMPLIANCE AGREE WITH RENAL SONO AND DOPPLER TO R/O RASTA CHECK UA VIOLA CHRISTIAN MD Jan 13, 2019 14:50
--- NOTE | 2019-01-13 15:45 | NUR ---
Notified pt of need for urine specimen, specimen container obtained placed in bathroom, to call when sample ready
[2019-01-13 17:47] LABS: BILIRUBIN,URINE NEGATIVE (NEG); CLARITY,URINE CLEAR; COLOR,URINE YELLOW; NITRITE,URINE NEGATIVE (NEG); PROTEIN,URINE 30 mg/dL (NEG-TRACE)
[2019-01-13 17:51] LABS: RBC,URINE 0 /HPF (0-2)
[2019-01-13 17:52] LABS: BACTERIA,URINE MODERATE /HPF (0-FEW); SQUAMOUS EPITHELIAL CELL,UR MANY /LPF
[2019-01-13] MEDS: LATANOPROST 0.005% OPHTH SOLUTION 2.5ML BOTTLE. OU SCH (21:24)
[2019-01-13] MEDS: amLODIPine BESYLATE 5 MG TABLET PO SCH (21:30)
[2019-01-14] VITALS (8 sets, daily range): BP systolic 83–134; BP diastolic 60–86
[2019-01-14] MEDS: PANTOPRAZOLE 40 MG TABLET.DR. PO SCH (06:06)
[2019-01-14 06:44] LABS: CALCIUM 9.5 mg/dL (8.5-10.1); CREATININE 1.8 mg/dL (0.6-1.0); GFR 35.5; POTASSIUM 4.3 mmol/L (3.5-5.1)
[2019-01-14] MEDS: FLUoxetine HCL 20 MG CAPSULE PO SCH ×2 (08:19→21:09)
[2019-01-14] MEDS: CARVEDILOL 12.5 MG TABLET. PO SCH ×2 (08:20→17:00)
[2019-01-14] MEDS: LISINOPRIL 20 MG TABLET PO SCH (08:21)
[2019-01-14] MEDS: HYDROcodone/APAP 5/325MG 1 TAB TABLET PO PRN ×2 (09:09→18:14)
[2019-01-14] MEDS: BUDESONIDE 0.5 MG/2 ML NEBU. NEB SCH ×2 (09:45→19:59)
--- NOTE | 2019-01-14 10:17 | PDOC ---
PROGRESS NOTES Subjective Subjective BP low this morning Objective Objective Vital Signs Date Time Temp Pulse Resp B/P (MAP) Pulse Ox O2 Delivery O2 Flow Rate FiO2 01/14/19 10:01 Room Air 01/14/19 09:10 68 86/61 (69) 01/14/19 07:00 97.8 18 96 97.8 Intake and Output 01/14/19 07:00 Intake Total 1560 ml Output Total 1300 ml Balance 260 ml Intake Oral 1560 ml Output Urine Total 1300 ml Physical Exam Abdomen: Normal bowel sounds, Soft, No tenderness Heart: Regular rate, Normal S1, Normal S2 Extremities: No cyanosis General: Alert, Oriented X3, Cooperative, No acute distress HEENT: Atraumatic, PERRLA, EOMI, Mucous membr. moist/pink Lungs: Clear to auscultation, Normal air movement MUSCULOSKELETAL: No joint tenderness, No deformity Neuro: Normal speech, Sensation intact, Cranial nerves 3-12 NL Psych/Mental Status: Mental status NL Skin: No breakdown Diagnosis Problem List Problems Medical Problems: (1) HTN (hypertension) Status: Acute Assessment Assessment Problems Medical Problems: (1) HTN (hypertension) Status: Acute FINAL IMPRESSION: 1. Refractory malignant hypertension. 2. Scleroderma. 3. Anxiety. 4. Depression. 5. Possible pulmonary hypertension. PLAN: Low BP this morning 80/60 started on clonidine patch. pt not taking meds as directed at home, taking clonidine at bed time ,due to side effects. doppler renal neg sono kidney ,mild atrophy echo good LVF cr 1.8 went up slightly ?home tomorrow Plan Plan of Care Problems Medical Problems: (1) HTN (hypertension) Status: Acute Comment Review of Relevant I have reviewed the following items leti (where applicable) has been applied. Labs Laboratory Tests Test 01/13/19 10:45 01/13/19 17:35 01/14/19 04:10 Troponin I Quantitative 0.029 ng/mL (0.000-0.055) YZ-Ehr-T-Type Natriuretic Peptide 93571 pg/mL (0-124) Thyroid Stimulating Hormone (TSH) 1.567 uIU/mL (0.358-3.74) Urine Collection Type Unknown Urine Color Yellow Urine Clarity Clear Urine pH 7.0 Urine Specific [place] 1.015 Urine Protein 30 mg/dL (NEG-TRACE) Urine Glucose (UA) Negative mg/dL (NEG) Urine Ketones (Stick) Negative mg/dL (NEG) Urine Blood Negative (NEG) Urine Nitrite Negative (NEG) Urine Bilirubin Negative (NEG) Urine Urobilinogen Dipstick 1.0 mg/dL (0.2 mg/dL) Urine Leukocyte Esterase Small (NEG) Urine RBC 0 /HPF (0-2) Urine WBC 5-10 /HPF (0-4) Urine Squamous Epithelial Cells Many /LPF Urine Bacteria Moderate /HPF (0-FEW) Sodium Level 136 mmol/L (136-145) Potassium Level 4.3 mmol/L (3.5-5.1) Chloride Level 100 mmol/L (98-107) Carbon Dioxide Level 25 mmol/L (21-32) Anion Gap 11 (6-14) Blood Urea Nitrogen 26 mg/dL (7-20) Creatinine 1.8 mg/dL (0.6-1.0) Estimated GFR (Cockcroft-Gault) 35.5 Glucose Level 94 mg/dL (70-99) Calcium Level 9.5 mg/dL (8.5-10.1) Medications Current Medications Clonidine HCl (Catapres Tts-2) 1 patch WEEKLY TD Last administered on at 11:58; Start 01/13/19 at 11:00 Vitals/I & O Vital Sign - Last 24 Hours 01/13/19 01/13/19 01/13/19 01/13/19 12:05 12:06 12:06 14:00 Temp 98.4 98.4 Pulse 61 65 65 63 B/P (MAP) 150/96 (114) 102/73 (83) 128/91 (103) 92/58 01/13/19 01/13/19 01/13/19 01/13/19 14:03 17:25 17:25 19:34 Temp 97.9 97.9 Pulse 63 59 59 66 Resp 14 B/P (MAP) 92/58 (69) 166/105 166/105 (125) 99/66 (77) Pulse Ox 99 O2 Delivery Room Air 01/13/19 01/13/19 01/13/19 01/13/19 19:35 19:37 20:20 21:29 Pulse 67 68 64 B/P (MAP) 94/64 (74) 76/46 (56) 111/76 O2 Delivery Room Air 2/11/1901/13/19 01/14/19 01/14/19 21:30 23:19 03:30 07:00 Temp 97.2 97.5 97.8 97.2 97.5 97.8 Pulse 64 62 64 64 Resp 16 16 18 B/P (MAP) 111/76 114/85 (95) 117/86 (96) 134/84 (101) Pulse Ox 92 95 96 O2 Delivery Room Air Room Air Room Air 01/14/19 01/14/19 01/14/19 01/14/19 07:36 08:20 08:20 08:21 Pulse 64 64 64 B/P (MAP) 149/91 149/91 149/91 O2 Delivery Room Air 01/14/19 01/14/19 01/14/19 09:09 09:10 10:01 Pulse 68 B/P (MAP) 86/61 (69) O2 Delivery Room Air Room Air Intake and Output 01/13/19 01/13/19 01/14/19 15:00 23:00 07:00 Intake Total 700 ml 60 ml 800 ml Output Total 350 ml 250 ml 700 ml Balance 350 ml -190 ml 100 ml Nutrition Consultation Dietary Evaluation: Recommendations by RD: Dietary education by RD, Add supplement feedings Comments: Add Ensure TID Provided cardiac diet education Expected Outcomes/Goals: PO intake >75% est needs All diet education questions answered prior to discharge Interpretation of weight loss: >7.5% in 3 months Malnutrition Findings: Food and Nutrition Intake (Sev: <50% est energy req 5days Weight Status: Overweight MIRI KNOTT MD Jan 14, 2019 10:17
--- NOTE | 2019-01-14 12:00 | PDOC ---
Renal-Progress Notes Subjective Notes Notes NONE History of Present Illness Hx of present illness STABLE Vitals Vitals Vital Signs Date Time Temp Pulse Resp B/P (MAP) Pulse Ox O2 Delivery O2 Flow Rate FiO2 01/14/19 10:01 Room Air 01/14/19 09:10 68 86/61 (69) 01/14/19 07:00 97.8 18 96 97.8 Weight Weight [ ] I.O. Intake and Output Intake and Output 01/14/19 07:00 Intake Total 1560 ml Output Total 1300 ml Balance 260 ml Intake Oral 1560 ml Output Urine Total 1300 ml Labs Labs Laboratory Tests Test 01/13/19 17:35 01/14/19 04:10 Urine Collection Type Unknown Urine Color Yellow Urine Clarity Clear Urine pH 7.0 Urine Specific [place] 1.015 Urine Protein 30 mg/dL (NEG-TRACE) Urine Glucose (UA) Negative mg/dL (NEG) Urine Ketones (Stick) Negative mg/dL (NEG) Urine Blood Negative (NEG) Urine Nitrite Negative (NEG) Urine Bilirubin Negative (NEG) Urine Urobilinogen Dipstick 1.0 mg/dL (0.2 mg/dL) Urine Leukocyte Esterase Small (NEG) Urine RBC 0 /HPF (0-2) Urine WBC 5-10 /HPF (0-4) Urine Squamous Epithelial Cells Many /LPF Urine Bacteria Moderate /HPF (0-FEW) Sodium Level 136 mmol/L (136-145) Potassium Level 4.3 mmol/L (3.5-5.1) Chloride Level 100 mmol/L (98-107) Carbon Dioxide Level 25 mmol/L (21-32) Anion Gap 11 (6-14) Blood Urea Nitrogen 26 mg/dL (7-20) Creatinine 1.8 mg/dL (0.6-1.0) Estimated GFR (Cockcroft-Gault) 35.5 Glucose Level 94 mg/dL (70-99) Calcium Level 9.5 mg/dL (8.5-10.1) Review of Systems Constitutional: yes: alert, oriented Ears/Nose/Throat: Yes: no symptom reported Eyes: Yes: no symptom reported Pulmonary: Yes no symptom reported Cardiovascular: Yes no symptom reported Gastrointestional: Yes: no symptom reported Genitourinary: Yes: no symptom reported Musculoskeletal: Yes: no symptom reported Skin: Yes no symptom reported Psychiatric/Neurological: Yes: no symptom reported Endocrine: Yes: no symptom reported Physical Exam General Appearance: no apparent distress Skin: warm Respiratory: bilateral CTA Heart: S1S2 Abdomen: soft, bowel sounds present Genitourinary: bladder flat Extremities: pulses present Neurology: alert Musculoskeletal: Osteoarthritis Assessment Assessment IMP CKD STAGE 3-CR STABLE AT 1.9 MALIGNANT HTN-NO RASTA OR SECONDARY FORMS NOTED NON COMPLIANCE SCLERODERMA PLAN CONT LARISSA-I ENC COMPLIANCE D/W DR KNOTT WILL FOLLOW VIOLA CHRISTIAN MD Jan 14, 2019 12:00
--- NOTE | 2019-01-14 15:46 | PDOC ---
BAILEE JUNE CATHODE MAKER 01/14/19 1546: CARDIO Progress Notes Date and Time Date of Service 01/14/2019 Time of Evaluation 1510 Subjective Subjective: No Chest Pain, No shortness of breath, No Palpitations Vitals Vitals Vital Signs Date Time Temp Pulse Resp B/P (MAP) Pulse Ox O2 Delivery O2 Flow Rate FiO2 01/14/19 14:34 72 90/60 (70) 01/14/19 11:00 97.4 18 97 Room Air 97.4 Weight Weight [ ] Input and Output Intake and Output Intake and Output 01/14/19 07:00 Intake Total 1560 ml Output Total 1300 ml Balance 260 ml Intake Oral 1560 ml Output Urine Total 1300 ml Laboratory Labs Laboratory Tests Test 01/13/19 17:35 01/14/19 04:10 Urine Collection Type Unknown Urine Color Yellow Urine Clarity Clear Urine pH 7.0 Urine Specific [place] 1.015 Urine Protein 30 mg/dL (NEG-TRACE) Urine Glucose (UA) Negative mg/dL (NEG) Urine Ketones (Stick) Negative mg/dL (NEG) Urine Blood Negative (NEG) Urine Nitrite Negative (NEG) Urine Bilirubin Negative (NEG) Urine Urobilinogen Dipstick 1.0 mg/dL (0.2 mg/dL) Urine Leukocyte Esterase Small (NEG) Urine RBC 0 /HPF (0-2) Urine WBC 5-10 /HPF (0-4) Urine Squamous Epithelial Cells Many /LPF Urine Bacteria Moderate /HPF (0-FEW) Sodium Level 136 mmol/L (136-145) Potassium Level 4.3 mmol/L (3.5-5.1) Chloride Level 100 mmol/L (98-107) Carbon Dioxide Level 25 mmol/L (21-32) Anion Gap 11 (6-14) Blood Urea Nitrogen 26 mg/dL (7-20) Creatinine 1.8 mg/dL (0.6-1.0) Estimated GFR (Cockcroft-Gault) 35.5 Glucose Level 94 mg/dL (70-99) Calcium Level 9.5 mg/dL (8.5-10.1) Review of Systems Constitutional: yes: alert, oriented Ears/Nose/Throat: Yes: no symptom reported Eyes: Yes: no symptom reported Pulmonary: Yes no symptom reported Cardiovascular: Yes no symptom reported Gastrointestional: Yes: no symptom reported Genitourinary: Yes: no symptom reported Musculoskeletal: Yes: no symptom reported Skin: Yes no symptom reported Psychiatric/Neurological: Yes: no symptom reported Endocrine: Yes: no symptom reported Physical Exam HEENT: Neck Supple W Full Motion Chest: Symmetric LUNGS: Clear to Auscultation Heart: S1S2, RRR (SR) Abdomen: Soft N/T Extremities: No Calf Tenderness Neurology: alert, oriented, follow commands Assessment Assessment 1. Accelerated HTN: suspecting rebound reaction from skipped dosing of clonidine. 2. Hypotension: suspect direct result from BP regimen intensification. Noted FERRO with low BP otherwise no other symptoms. 3. Mild pulmonary HTN: EF and WM nml. Possible atrial septal aneurysm. Could not rule out interatrial shunting 4. Chronic diastolic CHF 5. Hx of scleroderma 6. CKD3: Cr at 1.8. nephrology following Recommendations 1. Will decrease clonidine to TTS 1. Decrease coreg. Discussed with staff, may hold BP regimen per BP trend. 2. Clonidine has been making her sleepy and will continue to titrate this off gradually and continue to optimize other regimen pending BP trend.particularly the vasodilators 3. Dietitian consult for DASH diet 4. No LEVINE so far, ambulated several times in hallway with no dizziness or LEVINE. Continue to increase activity as tolerated. 5. SHANTA is a consideration as an outpt in regards to atrial septal aneurysm DEIDRA HARDING MD 01/14/193: CARDIO Progress Notes Plan Plan Pt. seen and examined. 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 She is tired from labile BP and headaches Will continue to titrate meds. Eventually would like to come off of clonidine given the rebound effects and side effects she is having. Supportive care. BAILEE JUNE APRN Jan 14, 2019 15:46 DEIDRA HARDING MD Jan 14, 2019 21:43
--- NOTE | 2019-01-14 17:01 | NUR ---
Patients BP this evening was 119/81. She requested to not have her BP medication because that was the first BP today that was above 100. Patient complains of headache when her BP gets low, YVROSE Monterroso notified. Ortho BPs taken this afternoon. At this time she states she is not having any headaches.
[2019-01-14] MEDS: amLODIPine BESYLATE 5 MG TABLET PO SCH (21:08)
[2019-01-14] MEDS: LATANOPROST 0.005% OPHTH SOLUTION 2.5ML BOTTLE. OU SCH (21:10)
[2019-01-15] VITALS (9 sets, daily range): BP systolic 121–198; BP diastolic 77–112
[2019-01-15 04:40] LABS: CALCIUM 9.4 mg/dL (8.5-10.1); CREATININE 1.7 mg/dL (0.6-1.0); GFR 37.9; POTASSIUM 4.4 mmol/L (3.5-5.1)
[2019-01-15] MEDS: PANTOPRAZOLE 40 MG TABLET.DR. PO SCH (05:43)
--- NOTE | 2019-01-15 07:23 | NUR ---
LATE ENTRY: ORDER GIVEN ON 01/14/19 TO GIVE HYDRALAZINE 50MG PO BID AND NORVASC 5MG PO AT HS, WILL MONITOR. PMRN
[2019-01-15] MEDS: BUDESONIDE 0.5 MG/2 ML NEBU. NEB SCH (08:12)
[2019-01-15] MEDS: LISINOPRIL 20 MG TABLET PO SCH (08:52)
[2019-01-15] MEDS: CARVEDILOL 12.5 MG TABLET. PO SCH ×2 (08:53→17:39)
[2019-01-15] MEDS: FLUoxetine HCL 20 MG CAPSULE PO SCH (08:54)
[2019-01-15] MEDS: HYDROcodone/APAP 5/325MG 1 TAB TABLET PO PRN ×2 (09:00→14:47)
[2019-01-15] MEDS ORDERED: cloNIDine TTS-1 1 PATCH PATCH.TDWK TD SCH (09:00)
[2019-01-15] MEDS ORDERED: amLODIPine BESYLATE 5 MG TABLET PO SCH ×3 (09:00→21:00)
--- NOTE | 2019-01-15 09:54 | PDOC ---
PROGRESS NOTES Subjective Subjective feels better today Objective Objective Vital Signs Date Time Temp Pulse Resp B/P (MAP) Pulse Ox O2 Delivery O2 Flow Rate FiO2 01/15/19 09:00 Room Air 01/15/19 08:54 69 153/95 01/15/19 08:13 96 01/15/19 07:00 97.6 18 97.6 Intake and Output 01/15/19 07:00 Intake Total 320 ml Output Total 600 ml Balance -280 ml Intake Oral 320 ml Output Urine Total 600 ml # Voids 2 # Bowel Movements 1 Physical Exam Abdomen: Normal bowel sounds, Soft, No tenderness Heart: Regular rate, Normal S1, Normal S2 Extremities: No cyanosis General: Alert, Oriented X3, Cooperative, No acute distress HEENT: Atraumatic, PERRLA, EOMI, Mucous membr. moist/pink Lungs: Clear to auscultation, Normal air movement MUSCULOSKELETAL: No joint tenderness, No deformity Neuro: Normal speech, Sensation intact, Cranial nerves 3-12 NL Psych/Mental Status: Mental status NL Skin: No breakdown Diagnosis Problem List Problems Medical Problems: (1) HTN (hypertension) Status: Acute Assessment Assessment Problems Medical Problems: (1) HTN (hypertension) Status: Acute FINAL IMPRESSION: 1. Refractory malignant hypertension. 2. Scleroderma. 3. Anxiety. 4. Depression. 5. Possible pulmonary hypertension. PLAN: d/c home today BP good 150/90 started on clonidine patch. pt not taking meds as directed at home, taking clonidine at bed time ,due to side effects. doppler renal neg sono kidney ,mild atrophy echo good LVF cr 1.7 base line Plan Plan of Care Problems Medical Problems: (1) HTN (hypertension) Status: Acute Comment Review of Relevant I have reviewed the following items leti (where applicable) has been applied. Labs Laboratory Tests Test 01/15/19 04:00 Sodium Level 135 mmol/L (136-145) Potassium Level 4.4 mmol/L (3.5-5.1) Chloride Level 100 mmol/L (98-107) Carbon Dioxide Level 27 mmol/L (21-32) Anion Gap 8 (6-14) Blood Urea Nitrogen 29 mg/dL (7-20) Creatinine 1.7 mg/dL (0.6-1.0) Estimated GFR (Cockcroft-Gault) 37.9 Glucose Level 95 mg/dL (70-99) Calcium Level 9.4 mg/dL (8.5-10.1) Medications Current Medications Amlodipine Besylate (Norvasc) 5 mg BID PO ; Start 01/15/19 at 09:00; Stop at 09:00; Status DC Amlodipine Besylate (Norvasc) 5 mg HS PO ; Start 01/15/19 at 21:00 Amlodipine Besylate (Norvasc) 5 mg HS PO ; Start 01/15/19 at 21:00; Status UNV Carvedilol (Coreg) 12.5 mg BIDWMEALS PO Last administered on 01/15/19at 08:53; Start 01/14/19 at 17:00 Clonidine HCl (Catapres Tts-1) 1 patch WEEKLY TD Last administered on at 08:57; Start 01/15/19 at 09:00 Hydralazine HCl (Apresoline) 50 mg BID PO Last administered on 01/15/19at 08:54 ; Start 01/15/19 at 09:00 Vitals/I & O Vital Sign - Last 24 Hours 01/14/19 01/14/19 01/14/19 01/14/19 11:00 11:00 11:00 13:04 Temp 97.4 97.4 Pulse 65 64 64 72 Resp 18 B/P (MAP) 96/65 (75) 93/64 (74) 83/61 (68) 99/71 (80) Pulse Ox 97 O2 Delivery Room Air 01/14/19 01/14/19 01/14/19 01/14/19 14:34 17:00 18:14 18:14 Pulse 72 74 66 B/P (MAP) 90/60 (70) 119/81 102/72 (82) O2 Delivery Room Air 01/14/19 01/14/19 01/14/19 01/14/19 19:45 19:59 21:08 21:09 Pulse 60 61 B/P (MAP) 125/82 125/82 Pulse Ox 96 O2 Delivery Room Air Room Air 01/14/19 01/14/19 01/15/19 01/15/19 21:10 22:42 02:02 07:00 Temp 97.3 98.0 97.6 97.3 98.0 97.6 Pulse 63 63 65 Resp 16 16 18 B/P (MAP) 116/82 (93) 121/87 (98) 161/97 (118) Pulse Ox 92 92 97 O2 Delivery Room Air Room Air Room Air Room Air 01/15/19 01/15/19 01/15/19 01/15/19 08:13 08:52 08:53 08:54 Pulse 69 69 69 B/P (MAP) 153/95 153/95 153/95 Pulse Ox 96 O2 Delivery Room Air 01/15/19 09:00 O2 Delivery Room Air Intake and Output 01/14/19 01/14/19 01/15/19 15:00 23:00 07:00 Intake Total 220 ml 100 ml Output Total 300 ml 300 ml Balance 220 ml -300 ml -200 ml Nutrition Consultation Dietary Evaluation: Recommendations by RD: Dietary education by RD, Add supplement feedings Comments: Add Ensure TID Provided cardiac diet education Expected Outcomes/Goals: PO intake >75% est needs All diet education questions answered prior to discharge Interpretation of weight loss: >7.5% in 3 months Malnutrition Findings: Food and Nutrition Intake (Sev: <50% est energy req 5days Weight Status: Overweight MIRI KNOTT MD Jan 15, 2019 09:54
[2019-01-15] MEDS ORDERED: CLON1PAT TD (10:02)
[2019-01-15] MEDS ORDERED: LISI-130 PO ×2 (10:27→17:01)
--- NOTE | 2019-01-15 10:44 | NUR ---
SS following up with discharge planning. PT recommended fpc unit. SS met with pt and discussed. 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 Pt reported that she will return to home and work as soon as possible.
--- NOTE | 2019-01-15 12:29 | PDOC ---
Renal-Progress Notes Subjective Notes Notes NONE History of Present Illness Hx of present illness STABLE Vitals Vitals Vital Signs Date Time Temp Pulse Resp B/P (MAP) Pulse Ox O2 Delivery O2 Flow Rate FiO2 01/15/19 09:00 Room Air 01/15/19 08:54 69 153/95 01/15/19 08:13 96 01/15/19 07:00 97.6 18 97.6 Weight Weight [ ] I.O. Intake and Output Intake and Output 01/15/19 06:59 Intake Total 320 ml Output Total 600 ml Balance -280 ml Intake Oral 320 ml Output Urine Total 600 ml # Voids 2 # Bowel Movements 1 Labs Labs Laboratory Tests Test 01/15/19 04:00 Sodium Level 135 mmol/L (136-145) Potassium Level 4.4 mmol/L (3.5-5.1) Chloride Level 100 mmol/L (98-107) Carbon Dioxide Level 27 mmol/L (21-32) Anion Gap 8 (6-14) Blood Urea Nitrogen 29 mg/dL (7-20) Creatinine 1.7 mg/dL (0.6-1.0) Estimated GFR (Cockcroft-Gault) 37.9 Glucose Level 95 mg/dL (70-99) Calcium Level 9.4 mg/dL (8.5-10.1) Review of Systems Constitutional: yes: alert, oriented Ears/Nose/Throat: Yes: no symptom reported Eyes: Yes: no symptom reported Pulmonary: Yes no symptom reported Cardiovascular: Yes no symptom reported Gastrointestional: Yes: no symptom reported Genitourinary: Yes: no symptom reported Musculoskeletal: Yes: no symptom reported Skin: Yes no symptom reported Psychiatric/Neurological: Yes: no symptom reported Endocrine: Yes: no symptom reported Physical Exam General Appearance: no apparent distress Skin: warm Respiratory: bilateral CTA Heart: S1S2 Abdomen: soft, bowel sounds present Genitourinary: bladder flat Extremities: pulses present Neurology: alert, oriented, follow commands Musculoskeletal: Osteoarthritis Assessment Assessment IMP CKD STAGE 3-CR STABLE AT 1.7 MALIGNANT HTN-NO RASTA OR SECONDARY FORMS NOTED-BETTER NON COMPLIANCE SCLERODERMA PLAN CONT LARISSA-I ENC COMPLIANCE D/W DR KNOTT HAS OP OV NEXT MONTH VIOLA CHRISTIAN MD Jan 15, 2019 12:29
--- NOTE | 2019-01-15 13:22 | PDOC ---
CARDIO Progress Notes Date and Time Date of Service 01/15/2019 Time of Evaluation 1300 Subjective Subjective: No Chest Pain, No shortness of breath, No Palpitations Vitals Vitals Vital Signs Date Time Temp Pulse Resp B/P (MAP) Pulse Ox O2 Delivery O2 Flow Rate FiO2 01/15/19 11:00 97.8 65 16 124/82 (96) 95 Room Air 97.8 Weight Weight [ ] Input and Output Intake and Output Intake and Output 01/15/19 07:00 Intake Total 320 ml Output Total 600 ml Balance -280 ml Intake Oral 320 ml Output Urine Total 600 ml # Voids 2 # Bowel Movements 1 Laboratory Labs Laboratory Tests Test 01/15/19 04:00 Sodium Level 135 mmol/L (136-145) Potassium Level 4.4 mmol/L (3.5-5.1) Chloride Level 100 mmol/L (98-107) Carbon Dioxide Level 27 mmol/L (21-32) Anion Gap 8 (6-14) Blood Urea Nitrogen 29 mg/dL (7-20) Creatinine 1.7 mg/dL (0.6-1.0) Estimated GFR (Cockcroft-Gault) 37.9 Glucose Level 95 mg/dL (70-99) Calcium Level 9.4 mg/dL (8.5-10.1) Review of Systems Constitutional: yes: alert, oriented Ears/Nose/Throat: Yes: no symptom reported Eyes: Yes: no symptom reported Pulmonary: Yes no symptom reported Cardiovascular: Yes no symptom reported Gastrointestional: Yes: no symptom reported Genitourinary: Yes: no symptom reported Musculoskeletal: Yes: no symptom reported Skin: Yes no symptom reported Psychiatric/Neurological: Yes: no symptom reported Endocrine: Yes: no symptom reported Physical Exam HEENT: Neck Supple W Full Motion Chest: Symmetric LUNGS: Clear to Auscultation Heart: S1S2, RRR (SR) Abdomen: Soft N/T Extremities: No Calf Tenderness Neurology: alert, oriented, follow commands Assessment Assessment 1. Accelerated HTN: suspecting rebound reaction from skipped dosing of clonidine. 2. Hypotension: suspect direct result from BP regimen intensification. Noted FERRO with low BP otherwise no other symptoms. 3. Mild pulmonary HTN: EF and WM nml. Possible atrial septal aneurysm. Could not rule out interatrial shunting 4. Chronic diastolic CHF; compensated 5. Hx of scleroderma 6. CKD3: Cr at 1.7 stable, sees nephrology as outpt. Recommendations 1. BP much better sustained overnight. Continue with current inpt BP regimen including TTS 1 clonidine and if BP remains well controlled byt this afternoon then may DC. 2. Goal is to eventually remove clonidine as this interferes with her mentation and ability to function at work and may titrate up as outpt some of her meds to compensate. 3. Encourgaed compliance and home BP monitoring bid at least for 2 weeks and BP check next week at the office. 4. SHANTA is a consideration as an outpt in regards to atrial septal aneurysm BAILEE JUNE APRN Jan 15, 2019 13:22
[2019-01-15] MEDS ORDERED: AMLO5TAB4 PO (16:48)
[2019-01-15] MEDS ORDERED: CARV12.511 PO (16:52)
[2019-01-15] MEDS ORDERED: HYDR-2869 PO (16:58)
--- NOTE | 2019-01-15 19:12 | NUR ---
Discharge Note: BK WILL [address] [place] [address] Discharge instructions and discharge home medications reviewed with Patient and a copy given. All questions have been answered and understanding verbalized. The following instructions and handouts were given: DASH diet, HTN information, discharge instructions, clonidine patch information. Discontinued lines and drains: Peripheral IV intact. Patient discharged to Home or Self Care with Spouse via Ambulated at 1900.
--- NOTE | 2019-01-19 20:47 | PDOC ---
Provider Note Provider Note Discharge summary dictated. #[id number] MIRI KNOTT MD Jan 19, 2019 20:47
--- NOTE | 2019-01-20 01:08 | DS ---
DATE OF DISCHARGE: 01/15/2019 REASON FOR ADMISSION TO THE HOSPITAL: Malignant hypertension. CONSULTATIONS: 1. Dr. Kelley. 2. Dr. Mckenzie. PROCEDURES DONE: 1. Echocardiogram. 2. Ultrasound of the kidneys with renal artery Doppler. COMPLICATIONS NOTED: None. HOSPITAL COURSE: The patient is a 53-year-old female with a history of malignant hypertension, has been on at least 5 medications to control blood pressures. She is also noncompliant, does not take medications because they cause side effects, and when she came in, her blood pressure was high. She was given IV labetalol, IV hydralazine, and she was 192/121 at the time of admission. Her creatinine was 1.8 and LFTs were normal. The patient was seen by Cardiology, as well as renal. Blood pressure medication, clonidine was changed to Catapres-TTS 1 patch. Urine cultures showed mixed ludy, had an ultrasound of the kidneys, which showed mild renal atrophy, no evidence of renal artery stenosis. Had an echocardiogram, which showed good left ventricular function. On the whole, the patient's blood pressure was controlled and she was discharged home on a Catapres patch and she has less side effects with the patch than with the pills. FINAL DIAGNOSES: 1. Malignant hypertension. 2. Chronic kidney disease, stage 3. 3. Scleroderma. 4. Hypertension. 5. Noncompliance. DISPOSITION: Home. DISCHARGE MEDICATIONS: See MRAD for discharge medications. MIRI KNOTT MD DR: LINCOLN/darrell JOB#: [id number] / [id number]
== END 2019-01-15 19:00 | disposition home or self-care (01) | DRG 292 ==
LOC: ER 16:33 → 2 NORTH 17:25
PROVIDERS: ADMIT Internal Medicine; ATTEND Internal Medicine
DX: I13.0 Hypertensive heart and chronic kidney disease with heart failure and stage 1 through stage 4 chronic kidney disease, or unspecified chronic kidney disease (principal); I50.32 Chronic diastolic (congestive) heart failure; I27.20 Pulmonary hypertension, unspecified; F32.9 Major depressive disorder, single episode, unspecified; F41.9 Anxiety disorder, unspecified; R53.82 Chronic fatigue, unspecified; J45.909 Unspecified asthma, uncomplicated; M34.9 Systemic sclerosis, unspecified; M19.90 Unspecified osteoarthritis, unspecified site; N18.3 Chronic kidney disease, stage 3 (moderate); R06.09 Other forms of dyspnea; I95.9 Hypotension, unspecified; Z82.49 Family history of ischemic heart disease and other diseases of the circulatory system; Z83.3 Family history of diabetes mellitus; Z91.19 Patient's noncompliance with other medical treatment and regimen; Z79.899 Other long term (current) drug therapy
CPT/HCPCS: 36415; 76770; 80048; 80053; 81001; 83880; 84443; 84484; 85025; 87086; 93005; 93306; 93975; 94640; 94760; 96374; J0360; J7626; 97116; 99285-25

== ENCOUNTER 2020-05-09 16:53 | Inpatient (IN) | payer BC ==
[~2020-05-09] VITALS: Ht 198.1 cm; Wt 70.8 kg
[~2020-05-09 16:53] MED LIST changes: +ASPI325T8 PO; +CARV25TA2 PO; +CHOL500016 PO; +CLON0.3T PO; +CLON1PAT TD; +FLUO20CA20 PO; -FLUO20CA8 PO; +MECL-75 PO; -MELA3TAB2 PO; +MELA3TAB4 PO; +ONDA4TAB7 PO; -PANT40TA5 PO; +PANT40TA77 PO
[2020-05-09] MEDS ORDERED: IV NORMAL SALINE 1000ML BAG 1,000 ML IV ONE (17:30)
[2020-05-09] MEDS ORDERED: DEXAMETHASONE SOD PHOS 20 MG/5 ML VIAL. IV ONE (17:30)
[2020-05-09] MEDS ORDERED: PROCHLORPERAZINE 10 MG/2 ML VIAL. IV ONE (17:30)
[2020-05-09] MEDS ORDERED: diphenhydrAMINE 50 MG/ML VIAL IVP ONE (17:30)
[2020-05-09] MEDS ORDERED: hydrALAZINE 20 MG/ML VIAL. IVP ONE ×2 (17:30→20:30)
[2020-05-09 18:07] LABS: BASO % 1 % (0-3); EOS % 1 % (0-3); HEMATOCRIT 42.8 % (36.0-47.0); HEMOGLOBIN 14.1 g/dL (12.0-15.5); LYMPH # 0.8 x10^3/uL (1.0-4.8); LYMPH % 15 % (24-48); MEAN CORPUSCULAR HEMOGLOBIN 27 pg (25-35); MEAN CORPUSCULAR HGB CONC 33 g/dL (31-37); MEAN CORPUSCULAR VOLUME 83 fL (79-100); MONO # 0.5 x10^3/uL (0.0-1.1); MONO % 10 % (0-9); NEUT # 3.9 x10^3/uL (1.8-7.7); NEUT % 75 % (31-73); PLATELET COUNT 235 x10^3/uL (140-400); RED BLOOD COUNT 5.16 x10^6/uL (3.50-5.40); RED CELL DISTRIBUTION WIDTH 14.9 % (11.5-14.5); WHITE BLOOD COUNT 5.2 x10^3/uL (4.0-11.0)
[2020-05-09 18:10] LABS: CALCIUM 8.9 mg/dL (8.5-10.1); CREATININE 1.9 mg/dL (0.6-1.0); GFR 33.2; POTASSIUM 3.9 mmol/L (3.5-5.1)
[2020-05-09 18:12] LABS: PROTHROMBIN TIME PATIENT 13.4 SEC (11.7-14.0)
[2020-05-09 18:16] LABS: ALBUMIN 3.2 g/dL (3.4-5.0); DIRECT BILIRUBIN 0.1 mg/dL (0.0-0.2); TOTAL BILIRUBIN 0.4 mg/dL (0.2-1.0); TOTAL PROTEIN 8.1 g/dL (6.4-8.2)
--- NOTE | 2020-05-09 18:20 | EKG ---
[facility] [address] [place] [address] Test Date: 2020-05-09 Test Time: 17:19:42 Pat Name: BK WILL Department: Room: Gender: F Patient Navigator: : 1965 Requested By: MEGAN CORNELIUS Order Number: [id number] Reading MD: Lucio Wall Measurements Intervals [place] Rate: 86 P: 40 LA: 160 QRS: 84 QRSD: 82 T: 180 QT: 338 QTc: 407 Interpretive Statements SINUS RHYTHM NONSPECIFIC ST-T WAVE CHANGES. Electronically Signed On 05-13-2020 16:05:02 CDT by Lucio Wall
--- NOTE | 2020-05-09 18:24 | PHYS DOC ---
Past Medical History Past Medical History: Asthma, Depression, Hypertension, Renal Failure Additional Past Medical Histor: Scleroderma,CARDIOMEGLY (MEGAN CORNELIUS DO) Past Surgical History: Other Additional Past Surgical Histo: Fibroids (MEGAN CORNELIUS DO) Smoking Status: Former Smoker Alcohol Use: Occasionally Drug Use: None (MEGAN CORNELIUS DO) General Adult EDM: Chief Complaint: HYPERTENSION HPI: HPI: 54-year-old AA female past medical history significant for TIA, hypertension, A. fib not on OAC, asthma, pulmonary arterial hypertension, scleroderma and Raynaud's, presents to the ED with complaints of " my head is starting." States she woke up this this morning with a gradual onset left-sided headache behind her eye, has worsened throughout the day. States she did take her blood pressure medications. Is complaining of associated dizziness. Came here after her husbands' chemo appt. denies any history of CAD or cardiac catheterization. ROS: Denies associated fever, chills, neck stiffness, blurry vision, facial droop, speech changes, nausea, vomiting, constipation, diarrhea, chest pain pressure heaviness or tightness, dyspnea, syncope, head injury, rash, leg swelling, hemoptysis. (MEGAN CORNELIUS DO) Review of Systems: Review of Systems: Constitutional: Denies fever or chills. [] Eyes: Denies change in visual acuity. [] HENT: Denies nasal congestion or sore throat. [] Respiratory: Denies cough or shortness of breath. [] Cardiovascular: Denies chest pain or edema. [] GI: Denies abdominal pain, nausea, vomiting, bloody stools or diarrhea. [] : Denies dysuria. [] Musculoskeletal: Denies back pain or joint pain. [] Integument: Denies rash. [] Neurologic: Denies headache, focal weakness or sensory changes. [] Endocrine: Denies polyuria or polydipsia. [] Lymphatic: Denies swollen glands. [] Psychiatric: Denies depression or anxiety. [] (MEGAN CORNELIUS DO) Heart Score: Risk Factors: Risk Factors: DM, Current or recent (<one month) smoker, HTN, HLP, family history of CAD, obesity. Risk Scores: Score 0 - 3: 2.5% MACE over next 6 weeks - Discharge Home Score 4 - 6: 20.3% MACE over next 6 weeks - Admit for Clinical Observation Score 7 - 10: 72.7% MACE over next 6 weeks - Early Invasive Strategies ([facility]) Current Medications: Current Medications Medications (Trade) Dose Ordered Sig/Orin Start Time Stop Time Status Last Admin Dose Admin Dexamethasone Sodium Phosphate (Decadron) 10 mg 1X ONCE 05/09/20 17:30 05/09/20 17:31 DC 05/09/20 17:56 10 MG Diphenhydramine HCl (Benadryl) 25 mg 1X ONCE 05/09/20 17:30 05/09/20 17:31 DC 05/09/20 17:57 25 MG Hydralazine HCl (Apresoline Inj) 10 mg 1X ONCE 05/09/20 17:30 05/09/20 17:31 DC 05/09/20 17:57 10 MG Prochlorperazine Edisylate (Compazine) 10 mg 1X ONCE 05/09/20 17:30 05/09/20 17:31 DC 05/09/20 17:56 10 MG Sodium Chloride 1,000 ml @ 1,000 mls/hr 1X ONCE 05/09/20 17:30 05/09/20 18:29 05/09/20 17:56 1,000 MLS/HR ([facility]) Allergies: Allergies: Allergies Coded Allergies Type Severity Reaction Last Updated Verified No Known Drug Allergies 07/08/15 No ([facility]) Physical Exam: PE: Constitutional: Well developed, well nourished, no acute distress, non-toxic appearance, obese HENT: Normocephalic, atraumatic, bilateral external ears normal, oropharynx mo ist, no oral exudates, nose normal. [] Eyes: PERRLA-3mm bl, EOMI, conjunctiva normal, no discharge. [] Neck: Normal range of motion, no tenderness, supple, no stridor. [] Cardiovascular:Heart rate regular rhythm, no murmur [] Lungs & Thorax: Bilateral breath sounds clear to auscultation [] Abdomen: Bowel sounds normal, soft, no tenderness, no masses, no pulsatile masses. [] Skin: Warm, dry, no erythema, no rash. [] Back: No tenderness, no CVA tenderness. [] Extremities: No tenderness, no cyanosis, no clubbing, ROM intact, no edema. [] Neurologic: Alert and oriented X 3-although slow mental processing, normal motor function, normal sensory function, no focal deficits noted, CN 2-12 intact Psychologic: Affect normal, judgement normal, mood normal. [] ([facility]) Current Patient Data: Vital Signs: Vital Signs Date Time Temp Pulse Resp B/P (MAP) Pulse Ox O2 Delivery O2 Flow Rate FiO2 05/09/20 17:57 81 249/157 05/09/20 17:15 98.1 12 96 Room Air 98.1 ([facility]) EKG: EKG: Sinus rhythm with inferior lateral ischemia ([facility]) Radiology/Procedures: Radiology/Procedures: [] Impression: Concern for significantly elevated hypertension in the setting of headache. Prior EKG was obtained from July 2019 showing similar inferior lateral T wave inversions. Hydralazine and migraine cocktail ordered. Due to shift signout patient was signed out to Dr. Porter. ([facility]) Impression: ROCEDURE: CT HEAD WO CONTRAST PQRS Compliance Statement: One or more of the following individualized dose reduction techniques were utilized for this examination: 1. Automated exposure control 2. Adjustment of the mA and/or kV according to patient size 3. Use of iterative reconstruction technique CT HEAD WITHOUT CONTRAST History: Reason: headache / Spl. Instructions: / History: Comparison: None. Technique: Axial images are obtained of the head from the skull base through the vertex without IV contrast. Findings: Image quality is mildly limited due to motion artifact. No mass-effect, midline shift, extra-axial fluid collection, hemorrhage, or obvious acute infarction is identified. Basilar cisterns are patent. The ventricles and sulci are normal for patient age. There is moderate supratentorial white matter hypoattenuation. This is a nonspecific finding but is commonly due to chronic small vessel ischemic disease. Bone windows demonstrate no acute calvarial abnormality. Mucosal thickening right ethmoid sinus. The other visualized paranasal sinuses are clear. Mastoid air cells are well aerated. IMPRESSION: 1. No acute intracranial abnormality. 2. There are moderate subcortical and periventricular white matter changes. Considerations include chronic small vessel ischemic disease, demyelinating disease, or sequela of migraines. Electronically signed by: Anil Link MD (05/09/2020 7:01 PM) [id number] PROCEDURE: PORTABLE CHEST 1V Exam: Chest one view INDICATION: Hypertension TECHNIQUE: Frontal view of the chest Comparisons: 01/07/2019 FINDINGS: The cardiomediastinal silhouette and pulmonary vessels are within normal limits. The lung and pleural spaces are clear. IMPRESSION: No acute cardiopulmonary process. Electronically signed by: Varsha Bustos MD (05/09/2020 6:21 PM) [id number] (YEN MARADIAGA Jr., DO) Course & Med Decision Making: Course & Med Decision Making Pertinent Labs and Imaging studies reviewed. (See chart for details) [] (MEGAN CORNELIUS DO) Dragon Disclaimer: Dragon Disclaimer: This electronic medical record was generated, in whole or in part, using a voice recognition dictation system. (MEGAN CORNELIUS DO) Departure Departure Impression: Primary Impression: Malignant essential hypertension Disposition: ADMITTED INPATIENT Admitting Physician: Mitzy Neal (YEN MARADIAGA Jr., DO) Condition: IMPROVED Referrals: CHRIS HALL (PCP) Justicifation of Admission Dx: Justifications for Admission: Justification of Admission Dx: Yes Hypertension: Cresendo Worsening of Sym (MEGAN CORNELIUS DO) MEGAN CORNELIUS DO May 09, 2020 18:24 YEN MARADIAGA Jr., DO May 09, 2020 19:20
--- NOTE | 2020-05-09 19:04 | RAD ---
PQRS Compliance Statement: One or more of the following individualized dose reduction techniques were utilized for this examination: 1. Automated exposure control 2. Adjustment of the mA and/or kV according to patient size 3. Use of iterative reconstruction technique CT HEAD WITHOUT CONTRAST History: Reason: headache / Spl. Instructions: / History: Comparison: None. Technique: Axial images are obtained of the head from the skull base through the vertex without IV contrast. Findings: Image quality is mildly limited due to motion artifact. No mass-effect, midline shift, extra-axial fluid collection, hemorrhage, or obvious acute infarction is identified. Basilar cisterns are patent. The ventricles and sulci are normal for patient age. There is moderate supratentorial white matter hypoattenuation. This is a nonspecific finding but is commonly due to chronic small vessel ischemic disease. Bone windows demonstrate no acute calvarial abnormality. Mucosal thickening right ethmoid sinus. The other visualized paranasal sinuses are clear. Mastoid air cells are well aerated. IMPRESSION: 1. No acute intracranial abnormality. 2. There are moderate subcortical and periventricular white matter changes. Considerations include chronic small vessel ischemic disease, demyelinating disease, or sequela of migraines. Electronically signed by: Anil Link MD (05/09/2020 7:01 PM) [facility]
[2020-05-09 19:20] LABS: % LYMPHS 17 % (24-48); % MONOS 8 % (0-10); % SEGS 75 % (35-66); PLT ESTIMATE ADEQUATE (ADEQUATE)
[2020-05-09] MEDS ORDERED: ONDANSETRON PF 4 MG/2 ML VIAL. IV PRN (20:00)
[2020-05-09] MEDS ORDERED: MORPHINE SULFATE 2 MG/ML VIAL. IV PRN (20:00)
[2020-05-09] MEDS ORDERED: LABETALOL 20 MG/4 ML DISP.SYRIN. IVP ONE ×2 (20:45→21:30)
[2020-05-09] MEDS ORDERED: LABETALOL 20 MG/4 ML DISP.SYRIN. IVP PRN (22:00)
[2020-05-09 22:12] VITALS: BP 228/150
--- NOTE | 2020-05-09 22:46 | NUR ---
Patient admitted to room 248 from ED at 2200. Pt drowsy but arousable. A&Ox4. RA. SR on monitor. HTN noted, labetalol IV PRN available if needed. No c/o pain or discomfort at this time. Call light is within reach. Will monitor.
[2020-05-10] VITALS (10 sets, daily range): BP systolic 120–227; BP diastolic 82–166
--- NOTE | 2020-05-10 00:57 | NUR ---
BP 227/162 following the dose of labetalol that was given. Cardene gtt started at 2.5mg. Will monitor.
[2020-05-10 03:56] LABS: BASO % 1 % (0-3); EOS % 0 % (0-3); HEMATOCRIT 49.5 % (36.0-47.0); HEMOGLOBIN 16.4 g/dL (12.0-15.5); LYMPH # 0.4 x10^3/uL (1.0-4.8); LYMPH % 11 % (24-48); MEAN CORPUSCULAR HEMOGLOBIN 28 pg (25-35); MEAN CORPUSCULAR HGB CONC 33 g/dL (31-37); MEAN CORPUSCULAR VOLUME 83 fL (79-100); MONO # 0.1 x10^3/uL (0.0-1.1); MONO % 1 % (0-9); NEUT # 3.5 x10^3/uL (1.8-7.7); NEUT % 87 % (31-73); PLATELET COUNT 265 x10^3/uL (140-400); RED BLOOD COUNT 5.96 x10^6/uL (3.50-5.40); RED CELL DISTRIBUTION WIDTH 15.3 % (11.5-14.5); WHITE BLOOD COUNT 4.1 x10^3/uL (4.0-11.0)
[2020-05-10 05:01] LABS: CALCIUM 9.7 mg/dL (8.5-10.1); CREATININE 1.6 mg/dL (0.6-1.0); GFR 40.5; POTASSIUM 3.5 mmol/L (3.5-5.1)
[2020-05-10] MEDS ORDERED: HYDR50TA6 PO (08:23)
--- NOTE | 2020-05-10 10:22 | PDOC ---
Provider Note Provider Note Pt seen.H&P dictated.#[id number]. Justicifation of Admission Dx: Justifications for Admission: Justification of Admission Dx: Yes Chronic Renal Failure: Hypertension Hypertension: Cresendo Worsening of Sym MIRI KNOTT MD May 10, 2020 10:22
--- NOTE | 2020-05-10 10:25 | NUR ---
SS following for discharge planning. SS reviewed pt chart and discussed with pt RN. Pt is from home with spouse and is currently on room air. SS will continue to follow for discharge planning.
[2020-05-10] MEDS ORDERED: ONDANSETRON ODT 4 MG TAB.RAPDIS. PO PRN (10:30)
[2020-05-10] MEDS ORDERED: MECLIZINE HCL 12.5 MG TABLET. PO PRN (10:30)
--- NOTE | 2020-05-10 11:28 | HP ---
ADMIT DATE: 05/09/2020 MEDICAL HISTORY AND PHYSICAL LOCATION: 248. ATTENDING PHYSICIAN: Mitzy Knott MD PRIMARY CARE PHYSICIAN: Dr. Abdul. REASON FOR ADMISSION TO THE HOSPITAL: Malignant hypertension. HISTORY OF PRESENT ILLNESS: The patient is a 54-year-old female. She has a history of scleroderma; hypertension; anxiety; depression; chronic kidney disease, stage 3. She was having headaches, not feeling well. Her blood pressure was high, 220/120. Had a CT head that was negative for bleed. The patient was started on Cardene drip and creatinine went up to 1.9, her baseline is 1.5-1.6. The patient was admitted to [facility]. PAST MEDICAL HISTORY: History of asthma, depression, hypertension, kidney disease, scleroderma, cardiomegaly, migraine headaches. PAST SURGICAL HISTORY: No major surgeries. I believe she had a kidney biopsy in the past. ALLERGIES: No known drug allergies. PERSONAL HISTORY: Former smoker, 1 pack for 20 years, quit. Denies alcohol or street drugs. MEDICATIONS AT HOME: The patient is on amlodipine 10 mg daily, aspirin 325 daily, Coreg 25 mg twice a day, fluoxetine 20 mg twice a day, hydralazine 100 mg twice a day, hydrochlorothiazide 50 mg daily, hydrocodone 5/325 q. 6, lisinopril 40 mg twice a day, meclizine for dizziness, Zofran for nausea, pantoprazole 40 mg daily. FAMILY HISTORY: Positive for hypertension, kidney problems. REVIEW OF SYMPTOMS: Complains of headache, does not feel good. Having some nausea and vomiting. Rest of the 14-system was reviewed and negative. PHYSICAL EXAMINATION: GENERAL: The patient is not in any distress now. VITAL SIGNS: At the time of admission shows a temperature 98, pulse 84, respirations 12, blood pressure 215/148, 96% on room air. HEENT: Head is atraumatic. Pupils equal. Oral cavity: No congestion. NECK: Supple. Thyroid not enlarged. JVD not elevated. No carotid bruit. CHEST: Symmetrical. CARDIOVASCULAR: S1, S2. LUNGS: Clear to auscultation. No wheezing. ABDOMEN: Soft. Bowel sounds present, no mass palpable. EXTERNAL GENITALIA: No Marcial. RECTAL: Deferred. EXTREMITIES: No calf tenderness, no edema. Pulses 1+. NEUROLOGIC: Cranial nerves intact. Power 5/5 in all extremities. SKIN: Normal skin turgor. PULSES: Adequate blood flow, adequate pulses in the left foot. LYMPH NODES: No significant lymphadenopathy. LABORATORY DATA: Shows a white count 5, hemoglobin 14, platelets 235. Electrolytes are sodium 133, potassium 3.9, chloride 96, bicarbonate 26, anion gap 11, BUN 20, creatinine 1.9. LFTs were normal. Troponin was negative. BNP was 7360. Had a CT head, no acute intracranial abnormality, moderate subcortical white matter change. Chest x-ray was negative. EKG negative for acute ischemic changes. FINAL IMPRESSION: 1. Malignant hypertension. 2. Headaches secondary to hypertension. 3. Scleroderma. 4. Karfh-jw-rutzhwg kidney failure. 5. Anxiety. 6. Depression. PLAN: At this time, was admit to hospital, hydrate with IV fluids. Kidney was coming down from 1.9 to 1.6. The patient is started on Cardene drip to control blood pressure. CT was negative for any bleed or strokes and the patient was seen by Renal to help with kidney disease secondary to scleroderma. MITZY KNOTT MD DR: LINCOLN/darrell JOB#: [id number] / [id number] CHRIS Benitez
[2020-05-10] MEDS: ASPIRIN 325 MG TABLET PO SCH (11:56)
[2020-05-10] MEDS: FLUoxetine HCL 20 MG CAPSULE PO SCH ×2 (11:57→21:41)
[2020-05-10] MEDS: LISINOPRIL 20 MG TABLET PO SCH ×2 (11:57→21:41)
[2020-05-10] MEDS: CARVEDILOL 12.5 MG TABLET. PO SCH ×2 (11:57→17:32)
--- NOTE | 2020-05-10 13:33 | PDOC2 ---
CONSULT Date of Consult Date of Consult DATE: 05/10/20 TIME: 13:29 Reason for Consult Reason for Consult: CKD Referring Physician Referring Physician: HEDY Identification/Chief Complaint Chief Complaint FERRO Source Source: Chart review, Patient History of Present Illness Reason for Visit: THIS IS A 54 YR OLD WITH C/O OF HEADACHE AND NOT FEELING WELL. ON ADMIT BP OF 220/120. CURRENTLY ON A CARDENE GTT. HAS CR OF 1.9. HAS CKD WITH CR OF 1.5-1.8. LYTES STABLE. CKD DUE TO HTN. HAS HX OF NON COMPLIANCE Past Medical History Cardiovascular: HTN Pulmonary: Asthma, COPD CENTRAL NERVOUS SYSTEM: TIA GI: GERD Heme/Onc: No pertinent hx Hepatobiliary: No pertinent hx Psych: Anxiety Musculoskeletal: Osteoarthritis, Other Rheumatologic: Other Renal/: Chronic renal insuff, Other Endocrine: No pertinent hx Past Surgical History Past Surgical History: No pertinent history Family History Family History: Stroke Social History ALCOHOL: occassional Drugs: None Lives: with Family Domestic Violence: Neg Current Problem List Problem List Problems Medical Problems: (1) Malignant essential hypertension Status: Acute Current Medications Current Medications Current Medications Dexamethasone Sodium Phosphate (Decadron) 10 mg 1X ONCE IV Last administered on 05/09/20at 17:56; Start 05/09/20 at 17:30; Stop 05/09/20 at 17:31; Status DC Prochlorperazine Edisylate (Compazine) 10 mg 1X ONCE IV Last administered on 05/09/20at 17:56; Start 05/09/20 at 17:30; Stop 05/09/20 at 17:31; Status DC Diphenhydramine HCl (Benadryl) 25 mg 1X ONCE IVP Last administered on 05/09/20at 17:57; Start 05/09/20 at 17:30; Stop 05/09/20 at 17:31; Status DC Sodium Chloride 1,000 ml @ 1,000 mls/hr 1X ONCE IV Last administered on 05/09/20at 17:56; Start 05/09/20 at 17:30; Stop 05/09/20 at 18:29; Status DC Hydralazine HCl (Apresoline Inj) 10 mg 1X ONCE IVP Last administered on 05/09/20at 17:57; Start 05/09/20 at 17:30; Stop 05/09/20 at 17:31; Status DC Nicardipine HCl 50 mg/Sodium Chloride 250 ml @ 25 mls/hr CONT PRN IV SEE I/O RECORD Last administered on 05/10/20at 00:45; Start 05/09/20 at 18:30 Lorazepam (Ativan Inj) 2 mg STK-MED ONCE .ROUTE ; Start 05/09/20 at 18:25; Stop 05/09/20 at 18:25; Status DC Lorazepam (Ativan Inj) 2 mg 1X ONCE IVP Last administered on 05/09/20at 19:00; Start 05/09/20 at 19:00; Stop 05/09/20 at 19:01; Status DC Ondansetron HCl (Zofran) 4 mg PRN Q8HRS PRN IV NAUSEA/VOMITING; Start 05/09/20 at 20:00; Stop 05/10/20 at 19:59 Morphine Sulfate (Morphine Sulfate) 2 mg PRN Q2HR PRN IV PAIN; Start 05/09/20 at 20:00; Stop 05/10/20 at 19:59 Hydralazine HCl (Apresoline Inj) 10 mg 1X ONCE IVP Last administered on 05/09/20at 20:35; Start 05/09/20 at 20:30; Stop 05/09/20 at 20:31; Status DC Labetalol HCl (Normodyne Iv Push) 10 mg 1X ONCE IVP Last administered on 05/09/20at 20:51; Start 05/09/20 at 20:45; Stop 05/09/20 at 20:46; Status DC Labetalol HCl (Normodyne Iv Push) 10 mg 1X ONCE IVP Last administered on 05/09/20at 21:37; Start 05/09/20 at 21:30; Stop 05/09/20 at 21:31; Status DC Labetalol HCl (Normodyne Iv Push) 10 mg PRN Q2HR PRN IVP HYPERTENSION Last administered on 05/09/20at 23:26; Start 05/09/20 at 22:00 Amlodipine Besylate (Norvasc) 10 mg HS PO ; Start 05/10/20 at 21:00 Aspirin (Mami Aspirin) 325 mg DAILY PO Last administered on 05/10/20at 11:56; Start 05/10/20 at 11:00 Fluoxetine HCl (PROzac) 20 mg BID PO Last administered on 05/10/20at 11:57; Start 05/10/20 at 11:00 Acetaminophen/ Hydrocodone Bitart (Lortab 5/325) 1 tab PRN QID PRN PO PAIN; Start 05/10/20 at 10:15 Lisinopril (Prinivil) 40 mg BID PO Last administered on 05/10/20at 11:57; Start 05/10/20 at 11:00 Pantoprazole Sodium (Protonix) 40 mg DAILY PO ; Start 05/11/20 at 09:00 Carvedilol (Coreg) 25 mg BIDWMEALS PO Last administered on 05/10/20at 11:57; Start 05/10/20 at 11:00 Hydralazine HCl (Apresoline) 100 mg BID PO ; Start 05/10/20 at 21:00 Hydrochlorothiazide (Hydrodiuril) 50 mg DAILY PO ; Start 05/11/20 at 09:00 Meclizine HCl (Antivert) 25 mg PRN TID PRN PO DIZZINESS; Start 05/10/20 at 10:30 Ondansetron HCl (Zofran Odt) 4 mg PRN Q6HRS PRN PO NAUSEA/VOMITING; Start 05/10/20 at 10:30 Active Scripts Active Aspirin 325 Mg Tablet 1 Tab PO DAILY Meclizine Hcl 25 Mg Tablet 1 Tab PO PRN TID Zofran (Ondansetron Hcl) 4 Mg Tablet 1 Tab PO Q6HRS PRN Reported Hydrochlorothiazide Tablet (Hydrochlorothiazide) 50 Mg Tablet 50 Mg PO DAILY Lisinopril 40 Mg Tablet 1 Tab PO BID Amlodipine Besylate 10 Mg Tablet 10 Mg PO HS Carvedilol 25 Mg Tablet 25 Mg PO BIDWMEALS Hydralazine Hcl 100 Mg Tablet 1 Tab PO BID [place] 5-325 Tablet (Acetaminophen/Hydrocodone Bitart) 1 Each Tablet 1-2 Tab PO Q4-6HRS Fluoxetine Hcl 20 Mg Capsule 1 Cap PO BID Pantoprazole Sodium (Pantoprazole Sodium) 40 Mg Tablet.dr 40 Mg PO DAILY Allergies Allergies: Coded Allergies: No Known Drug Allergies (Unverified , 07/08/15) ROS General: YES: Fatigue PSYCHOLOGICAL ROS: YES: Anxiety, Depression Eyes: Yes Decreased vision HEENT: YES: Heacaches ALLERGY AND IMMUNOLOGY: YES: Seasonal Allergies Gastrointestinal: Yes Constipation Genitourinary: YES Other (NOCTURIA) Musculoskeletal: Yes Muscular Weakness Neurological: Yes Weakness Skin: Yes Dry Skin Physical Exam General: Alert, Oriented X3, Cooperative, No acute distress HEENT: Atraumatic Lungs: Clear to auscultation Heart: Regular rate Abdomen: Normal bowel sounds, Soft, No tenderness Extremities: No cyanosis Skin: No breakdown Neuro: Normal speech, Sensation intact, Cranial nerves 3-12 NL Psych/Mental Status: Mental status NL MUSCULOSKELETAL: No joint tenderness, No deformity Vitals VITALS Vital Signs Date Time Temp Pulse Resp B/P (MAP) Pulse Ox O2 Delivery O2 Flow Rate FiO2 05/10/20 11:57 86 129/95 05/10/20 11:00 97.5 18 93 Room Air 97.5 Labs Labs Laboratory Tests Test 05/09/20 17:50 05/10/20 02:30 White Blood Count 5.2 x10^3/uL (4.0-11.0) 4.1 x10^3/uL (4.0-11.0) Red Blood Count 5.16 x10^6/uL (3.50-5.40) 5.96 x10^6/uL (3.50-5.40) Hemoglobin 14.1 g/dL (12.0-15.5) 16.4 g/dL (12.0-15.5) Hematocrit 42.8 % (36.0-47.0) 49.5 % (36.0-47.0) Mean Corpuscular Volume 83 fL (79-100) 83 fL (79-100) Mean Corpuscular Hemoglobin 27 pg (25-35) 28 pg (25-35) Mean Corpuscular Hemoglobin Concent 33 g/dL (31-37) 33 g/dL (31-37) Red Cell Distribution Width 14.9 % (11.5-14.5) 15.3 % (11.5-14.5) Platelet Count 235 x10^3/uL (140-400) 265 x10^3/uL (140-400) Neutrophils (%) (Auto) 75 % (31-73) 87 % (31-73) Lymphocytes (%) (Auto) 15 % (24-48) 11 % (24-48) Monocytes (%) (Auto) 10 % (0-9) 1 % (0-9) Eosinophils (%) (Auto) 1 % (0-3) 0 % (0-3) Basophils (%) (Auto) 1 % (0-3) 1 % (0-3) Neutrophils # (Auto) 3.9 x10^3/uL (1.8-7.7) 3.5 x10^3/uL (1.8-7.7) Lymphocytes # (Auto) 0.8 x10^3/uL (1.0-4.8) 0.4 x10^3/uL (1.0-4.8) Monocytes # (Auto) 0.5 x10^3/uL (0.0-1.1) 0.1 x10^3/uL (0.0-1.1) Eosinophils # (Auto) 0.0 x10^3/uL (0.0-0.7) 0.0 x10^3/uL (0.0-0.7) Basophils # (Auto) 0.0 x10^3/uL (0.0-0.2) 0.0 x10^3/uL (0.0-0.2) Segmented Neutrophils % 75 % (35-66) Lymphocytes % 17 % (24-48) Monocytes % 8 % (0-10) Platelet Estimate Adequate (ADEQUATE) Prothrombin Time 13.4 SEC (11.7-14.0) Prothromb Time International Ratio 1.1 (0.8-1.1) Activated Partial Thromboplast Time 41 SEC (24-38) Sodium Level 133 mmol/L (136-145) 132 mmol/L (136-145) Potassium Level 3.9 mmol/L (3.5-5.1) 3.5 mmol/L (3.5-5.1) Chloride Level 96 mmol/L (98-107) 94 mmol/L (98-107) Carbon Dioxide Level 26 mmol/L (21-32) 21 mmol/L (21-32) Anion Gap 11 (6-14) 17 (6-14) Blood Urea Nitrogen 20 mg/dL (7-20) 18 mg/dL (7-20) Creatinine 1.9 mg/dL (0.6-1.0) 1.6 mg/dL (0.6-1.0) Estimated GFR (Cockcroft-Gault) 33.2 40.5 Glucose Level 109 mg/dL (70-99) 121 mg/dL (70-99) Calcium Level 8.9 mg/dL (8.5-10.1) 9.7 mg/dL (8.5-10.1) Total Bilirubin 0.4 mg/dL (0.2-1.0) Direct Bilirubin 0.1 mg/dL (0.0-0.2) Aspartate Amino Transf (AST/SGOT) 18 U/L (15-37) Alanine Aminotransferase (ALT/SGPT) 9 U/L (14-59) Alkaline Phosphatase 76 U/L (46-116) Troponin I Quantitative 0.017 ng/mL (0.000-0.055) VC-Ehu-X-Type Natriuretic Peptide 7360 pg/mL (0-124) Total Protein 8.1 g/dL (6.4-8.2) Albumin 3.2 g/dL (3.4-5.0) Laboratory Tests Test 05/09/20 17:50 05/10/20 02:30 White Blood Count 5.2 x10^3/uL (4.0-11.0) 4.1 x10^3/uL (4.0-11.0) Red Blood Count 5.16 x10^6/uL (3.50-5.40) 5.96 x10^6/uL (3.50-5.40) Hemoglobin 14.1 g/dL (12.0-15.5) 16.4 g/dL (12.0-15.5) Hematocrit 42.8 % (36.0-47.0) 49.5 % (36.0-47.0) Mean Corpuscular Volume 83 fL (79-100) 83 fL (79-100) Mean Corpuscular Hemoglobin 27 pg (25-35) 28 pg (25-35) Mean Corpuscular Hemoglobin Concent 33 g/dL (31-37) 33 g/dL (31-37) Red Cell Distribution Width 14.9 % (11.5-14.5) 15.3 % (11.5-14.5) Platelet Count 235 x10^3/uL (140-400) 265 x10^3/uL (140-400) Neutrophils (%) (Auto) 75 % (31-73) 87 % (31-73) Lymphocytes (%) (Auto) 15 % (24-48) 11 % (24-48) Monocytes (%) (Auto) 10 % (0-9) 1 % (0-9) Eosinophils (%) (Auto) 1 % (0-3) 0 % (0-3) Basophils (%) (Auto) 1 % (0-3) 1 % (0-3) Neutrophils # (Auto) 3.9 x10^3/uL (1.8-7.7) 3.5 x10^3/uL (1.8-7.7) Lymphocytes # (Auto) 0.8 x10^3/uL (1.0-4.8) 0.4 x10^3/uL (1.0-4.8) Monocytes # (Auto) 0.5 x10^3/uL (0.0-1.1) 0.1 x10^3/uL (0.0-1.1) Eosinophils # (Auto) 0.0 x10^3/uL (0.0-0.7) 0.0 x10^3/uL (0.0-0.7) Basophils # (Auto) 0.0 x10^3/uL (0.0-0.2) 0.0 x10^3/uL (0.0-0.2) Segmented Neutrophils % 75 % (35-66) Lymphocytes % 17 % (24-48) Monocytes % 8 % (0-10) Platelet Estimate Adequate (ADEQUATE) Prothrombin Time 13.4 SEC (11.7-14.0) Prothromb Time International Ratio 1.1 (0.8-1.1) Activated Partial Thromboplast Time 41 SEC (24-38) Sodium Level 133 mmol/L (136-145) 132 mmol/L (136-145) Potassium Level 3.9 mmol/L (3.5-5.1) 3.5 mmol/L (3.5-5.1) Chloride Level 96 mmol/L (98-107) 94 mmol/L (98-107) Carbon Dioxide Level 26 mmol/L (21-32) 21 mmol/L (21-32) Anion Gap 11 (6-14) 17 (6-14) Blood Urea Nitrogen 20 mg/dL (7-20) 18 mg/dL (7-20) Creatinine 1.9 mg/dL (0.6-1.0) 1.6 mg/dL (0.6-1.0) Estimated GFR (Cockcroft-Gault) 33.2 40.5 Glucose Level 109 mg/dL (70-99) 121 mg/dL (70-99) Calcium Level 8.9 mg/dL (8.5-10.1) 9.7 mg/dL (8.5-10.1) Total Bilirubin 0.4 mg/dL (0.2-1.0) Direct Bilirubin 0.1 mg/dL (0.0-0.2) Aspartate Amino Transf (AST/SGOT) 18 U/L (15-37) Alanine Aminotransferase (ALT/SGPT) 9 U/L (14-59) Alkaline Phosphatase 76 U/L (46-116) Troponin I Quantitative 0.017 ng/mL (0.000-0.055) WC-Bav-I-Type Natriuretic Peptide 7360 pg/mL (0-124) Total Protein 8.1 g/dL (6.4-8.2) Albumin 3.2 g/dL (3.4-5.0) Assessment/Plan Assessment/Plan IMP HTN EMERGENCY HEADACHE DUE TO ABOVE CKD STAGE 3-STABLE PLAN CARDENE GTT RESUME HOME MEDS WILL FOLLOW VIOLA CHRISTIAN MD May 10, 2020 13:33
[2020-05-10] MEDS: amLODIPine BESYLATE 10 MG TABLET PO SCH (21:40)
--- NOTE | 2020-05-11 01:16 | NUR ---
security called, pt has a large amount of corey in her purse that was found all over the bed. Corey counted, $660. Recorded and given to security.
[2020-05-11 03:15] VITALS: BP 114/76
[2020-05-11 04:04] LABS: CALCIUM 8.9 mg/dL (8.5-10.1); CREATININE 2.7 mg/dL (0.6-1.0); GFR 22.1; POTASSIUM 4.4 mmol/L (3.5-5.1)
[2020-05-11 07:00] VITALS: BP 104/67
[2020-05-11] MEDS: CARVEDILOL 12.5 MG TABLET. PO SCH ×2 (08:00→17:00)
[2020-05-11] MEDS ORDERED: hydroCHLOROthiazide 25 MG TABLET PO SCH (09:00)
[2020-05-11] MEDS: LISINOPRIL 20 MG TABLET PO SCH ×2 (09:00→21:00)
[2020-05-11] MEDS: PANTOPRAZOLE 40 MG TABLET.DR. PO SCH (09:22)
[2020-05-11] MEDS: FLUoxetine HCL 20 MG CAPSULE PO SCH ×2 (09:22→20:59)
[2020-05-11] MEDS: HYDROcodone/APAP 5/325MG 1 TAB TABLET PO PRN ×2 (09:22→20:58)
[2020-05-11] MEDS: ASPIRIN 325 MG TABLET PO SCH (09:22)
--- NOTE | 2020-05-11 10:21 | PDOC ---
PROGRESS NOTES Subjective Subjective BP on the low side Objective Objective Vital Signs Date Time Temp Pulse Resp B/P (MAP) Pulse Ox O2 Delivery O2 Flow Rate FiO2 05/11/20 09:22 16 Room Air 05/11/20 07:00 97.6 70 104/67 (79) 98 97.6 Intake and Output 05/11/20 07:00 Intake Total 920 ml Balance 920 ml Intake Oral 920 ml # Voids 1 Physical Exam Abdomen: Normal bowel sounds, Soft, No tenderness Heart: Regular rate Extremities: No cyanosis General: Alert, Oriented X3, Cooperative, No acute distress HEENT: Atraumatic Lungs: Clear to auscultation MUSCULOSKELETAL: No joint tenderness, No deformity Neuro: Normal speech, Sensation intact, Cranial nerves 3-12 NL Psych/Mental Status: Mental status NL Skin: No breakdown Diagnosis Problem List Problems Medical Problems: (1) Malignant essential hypertension Status: Acute Assessment Assessment Problems Medical Problems: (1) Malignant essential hypertension Status: Acute FINAL IMPRESSION: 1. Malignant hypertension. 2. Headaches secondary to hypertension. 3. Scleroderma. 4. Valhc-mh-lycqflt kidney failure. 5. Anxiety. 6. Depression. PLAN: cr 2.7 went up, 1.6 yesterday will start on iv fluids BP on the low side off nicardipine drip sono kidney with doppler renal consult appreciated monitor kidney function At this time, was admit to hospital, hydrate with IV fluids. Kidney was coming down from 1.9 to 1.6. The patient is started on Cardene drip to control blood pressure. CT was negative for any bleed or strokes and the patient was seen by Renal to help with kidney disease secondary to scleroderma. Plan Plan of Care Problems Medical Problems: (1) Malignant essential hypertension Status: Acute Comment Review of Relevant I have reviewed the following items leti (where applicable) has been applied. Labs Laboratory Tests Test 05/11/20 03:05 Sodium Level 129 mmol/L (136-145) Potassium Level 4.4 mmol/L (3.5-5.1) Chloride Level 94 mmol/L (98-107) Carbon Dioxide Level 20 mmol/L (21-32) Anion Gap 15 (6-14) Blood Urea Nitrogen 38 mg/dL (7-20) Creatinine 2.7 mg/dL (0.6-1.0) Estimated GFR (Cockcroft-Gault) 22.1 Glucose Level 103 mg/dL (70-99) Calcium Level 8.9 mg/dL (8.5-10.1) Medications Current Medications Amlodipine Besylate (Norvasc) 10 mg HS PO Last administered on 05/10/20 21:40; Start 05/10/20 at 21:00 Aspirin (Mami Aspirin) 325 mg DAILY PO Last administered on 05/11/20 09:22; Start 05/10/20 at 11:00 Carvedilol (Coreg) 25 mg BIDWMEALS PO Last administered on 05/10/20 17:32; Start 05/10/20 at 11:00 Fluoxetine HCl (PROzac) 20 mg BID PO Last administered on 05/11/20 09:22; Start 05/10/20 at 11:00 Hydralazine HCl (Apresoline) 100 mg BID PO Last administered on 05/10/20 21:40; Start 05/10/20 at 21:00 Hydrochlorothiazide (Hydrodiuril) 50 mg DAILY PO ; Start 05/11/20 at 09:00 Lisinopril (Prinivil) 40 mg BID PO Last administered on 05/10/20at 21:41; Start 05/10/20 at 11:00 Meclizine HCl (Antivert) 25 mg PRN TID PRN PO DIZZINESS; Start 05/10/20 at 10:30 Ondansetron HCl (Zofran Odt) 4 mg PRN Q6HRS PRN PO NAUSEA/VOMITING; Start 05/10/20 at 10:30 Pantoprazole Sodium (Protonix) 40 mg DAILY PO Last administered on 05/11/20 09:22; Start 05/11/20 at 09:00 Vitals/I & O Vital Sign - Last 24 Hours 05/10/20 05/10/20 05/10/20 05/10/20 11:00 11:57 11:57 14:41 Temp 97.5 97.8 97.5 97.8 Pulse 89 86 86 76 Resp 18 18 B/P (MAP) 126/98 (107) 129/95 129/95 120/82 (95) Pulse Ox 93 94 O2 Delivery Room Air Room Air 05/10/20 05/10/20 05/10/20 05/10/20 17:32 19:35 19:51 21:40 Temp 98.0 98.0 Pulse 76 82 77 Resp 20 B/P (MAP) 120/82 186/115 (138) 172/119 Pulse Ox 96 O2 Delivery Room Air Room Air 05/10/20 05/10/20 05/10/20 05/11/20 21:40 21:41 23:05 03:15 Temp 97.7 97.6 97.7 97.6 Pulse 77 77 77 71 Resp 20 20 B/P (MAP) 172/119 172/119 154/115 (128) 114/76 (89) Pulse Ox 98 96 O2 Delivery Room Air Room Air 05/11/20 05/11/20 05/11/20 07:00 07:41 09:22 Temp 97.6 97.6 Pulse 70 Resp 16 16 B/P (MAP) 104/67 (79) Pulse Ox 98 O2 Delivery Room Air Room Air Room Air Intake and Output 05/10/20 05/10/20 05/11/20 15:00 23:00 07:00 Intake Total 480 ml 240 ml 200 ml Balance 480 ml 240 ml 200 ml Justicifation of Admission Dx: Justifications for Admission: Justification of Admission Dx: Yes Chronic Renal Failure: Hypertension Hypertension: Cresendo Worsening of Sym MIRI KNOTT MD May 11, 2020 10:21
[2020-05-11] MEDS: IV NORMAL SALINE 1000ML BAG 1,000 ML IV SCH ×2 (10:59→19:01)
[2020-05-11 11:00] VITALS: BP 105/66
--- NOTE | 2020-05-11 11:46 | PDOC ---
Renal-Progress Notes Subjective Notes Notes NO NEW COMPLAINTS History of Present Illness Hx of present illness STABLE Vitals Vitals Vital Signs Date Time Temp Pulse Resp B/P (MAP) Pulse Ox O2 Delivery O2 Flow Rate FiO2 05/11/20 11:00 98.0 70 18 105/66 (79) 97 Room Air 98.0 Weight Weight [ ] I.O. Intake and Output Intake and Output 05/11/20 07:00 Intake Total 920 ml Balance 920 ml Intake Oral 920 ml # Voids 1 Labs Labs Laboratory Tests Test 05/11/20 03:05 Sodium Level 129 mmol/L (136-145) Potassium Level 4.4 mmol/L (3.5-5.1) Chloride Level 94 mmol/L (98-107) Carbon Dioxide Level 20 mmol/L (21-32) Anion Gap 15 (6-14) Blood Urea Nitrogen 38 mg/dL (7-20) Creatinine 2.7 mg/dL (0.6-1.0) Estimated GFR (Cockcroft-Gault) 22.1 Glucose Level 103 mg/dL (70-99) Calcium Level 8.9 mg/dL (8.5-10.1) Physical Exam Musculoskeletal: Osteoarthritis, Other Assessment Assessment IMP ELLA WITH CR OF 2.7 DUE TO RENAL RELATIVE HYPOPERFUSION MILD HYPONATREMIA HTN EMERGENCY HEADACHE DUE TO ABOVE CKD STAGE 3-STABLE PLAN OFF CARDENE GTT INCREASE IVF'S RESUME HOME MEDS WILL FOLLOW VIOLA CHRISTIAN MD May 11, 2020 11:46
--- NOTE | 2020-05-11 12:06 | NUR ---
SS following up with discharge planning. SS reviewed pt chart and discussed with pt RN. Pt is currently on room air. Pt having renal ultrasound and IV fluids. SS will continue to follow for discharge planning.
--- NOTE | 2020-05-11 13:10 | RAD ---
Procedure: Renal Duplex Complete Clinical information: Hypertension Technique: Multiple longitudinal and transverse 2D real time grayscale and Doppler ultrasound images through the kidneys were acquired. COMPARISON: Renal duplex ultrasound 01/13/2019. Findings: Proximal abdominal aortic peak systolic velocity is 80.2 cm/s. The right proximal, mid and distal renal arteries respectively show peak systolic velocities of 104, 140, and 32 cm/s. Segmental right renal arteries show peak systolic velocities of 14.7 cm/s The left proximal, mid and distal renal arteries respectively show peak systolic velocities of 50, 81 and 60 cm/s. Segmental left renal artery show peak systolic velocities of 22.5 cm/s This reveals a renal to aortic ratio on the right of 1.75 at the mid renal artery and 1.01 on the left. Impression: 1. No evidence of renal artery stenosis seen. PROCEDURE: US RENAL DUPLEX, RENAL COMPLETE BILATERAL STUDY DATE: 05/11/2020 CLINICAL INDICATION / HISTORY: Renal failure.. TECHNIQUE: Real time ultrasound with hard copy imaging was performed. COMPARISON: 01/13/2019 complete abdominal ultrasound FINDINGS: Redemonstrated are increased echogenicity to the kidneys. There is no mass, hydronephrosis, or demonstrable stone formation. The right kidney measures 8.9 cm and the left kidney measures 9.4 cm. The abdominal aorta is normal in caliber. The Inferior vena cava is unremarkable. No abnormal fluid collections are demonstrated. The urinary bladder is empty . IMPRESSION: Echogenic kidneys compatible with medical renal disease with no findings of hydronephrosis or stone disease. Electronically signed by: Carla Sullivan MD (05/11/2020 1:07 PM) [id number]
[2020-05-11 15:00] VITALS: BP 93/62
[2020-05-11 19:00] VITALS: BP 105/73
[2020-05-11] MEDS: amLODIPine BESYLATE 10 MG TABLET PO SCH (21:02)
[2020-05-11 22:45] VITALS: BP 107/56
[2020-05-12] VITALS (7 sets, daily range): BP systolic 94–131; BP diastolic 61–87
[2020-05-12 01:48] LABS: BILIRUBIN,URINE NEGATIVE (NEG); CLARITY,URINE CLEAR; COLOR,URINE YELLOW; NITRITE,URINE NEGATIVE (NEG); PROTEIN,URINE NEGATIVE (NEG-TRACE); UROBILINOGEN,URINE 0.2 mg/dL (0.2 mg/dL)
[2020-05-12] MEDS: IV NORMAL SALINE 1000ML BAG 1,000 ML IV SCH ×3 (01:48→19:01)
[2020-05-12 02:06] LABS: BACTERIA,URINE MODERATE /HPF (0-FEW); RBC,URINE OCC /HPF (0-2); SQUAMOUS EPITHELIAL CELL,UR MOD /LPF
[2020-05-12 05:35] LABS: CALCIUM 8.2 mg/dL (8.5-10.1); CREATININE 2.7 mg/dL (0.6-1.0); GFR 22.1; POTASSIUM 3.5 mmol/L (3.5-5.1)
[2020-05-12] MEDS: CARVEDILOL 12.5 MG TABLET. PO SCH ×2 (09:21→17:37)
[2020-05-12] MEDS: ASPIRIN 325 MG TABLET PO SCH (09:21)
[2020-05-12] MEDS: FLUoxetine HCL 20 MG CAPSULE PO SCH ×2 (09:21→20:39)
[2020-05-12] MEDS: PANTOPRAZOLE 40 MG TABLET.DR. PO SCH (09:21)
--- NOTE | 2020-05-12 09:54 | PDOC ---
PROGRESS NOTES Subjective Subjective feels better today Objective Objective Vital Signs Date Time Temp Pulse Resp B/P (MAP) Pulse Ox O2 Delivery O2 Flow Rate FiO2 05/12/20 09:21 72 05/12/20 07:26 97.5 16 112/78 (89) 97 Room Air 97.5 Intake and Output 05/12/20 07:00 Intake Total 1700 ml Output Total 200 ml Balance 1500 ml Intake Oral 700 ml IV Total 1000 ml Output Urine Total 200 ml # Voids 1 Physical Exam Abdomen: Normal bowel sounds, Soft, No tenderness Heart: Regular rate Extremities: No cyanosis General: Alert, Oriented X3, Cooperative, No acute distress HEENT: Atraumatic Lungs: Clear to auscultation MUSCULOSKELETAL: No joint tenderness, No deformity Neuro: Normal speech, Sensation intact, Cranial nerves 3-12 NL Psych/Mental Status: Mental status NL Skin: No breakdown Diagnosis Problem List Problems Medical Problems: (1) Malignant essential hypertension Status: Acute Assessment Assessment Problems Medical Problems: (1) Malignant essential hypertension Status: Acute FINAL IMPRESSION: 1. Malignant hypertension. 2. Headaches secondary to hypertension. 3. Scleroderma. 4. Lasem-ve-ghhyhid kidney failure. 5. Anxiety. 6. Depression. PLAN: cr 2.5 went up,( 1.6 base line) will start on iv fluids BP on the low side off nicardipine drip, d/c lisinopril for now sono kidney with doppler -neg renal consult appreciated monitor kidney function. home tomorrow? Plan Plan of Care Problems Medical Problems: (1) Malignant essential hypertension Status: Acute Comment Review of Relevant I have reviewed the following items leti (where applicable) has been applied. Labs Laboratory Tests Test 05/12/20 01:43 05/12/20 03:50 Urine Collection Type Unknown Urine Color Yellow Urine Clarity Clear Urine pH 5.0 (<5.0-8.0) Urine Specific [place] 1.015 (1.000-1.030) Urine Protein Negative mg/dL (NEG-TRACE) Urine Glucose (UA) Negative mg/dL (NEG) Urine Ketones (Stick) Negative mg/dL (NEG) Urine Blood Negative (NEG) Urine Nitrite Negative (NEG) Urine Bilirubin Negative (NEG) Urine Urobilinogen Dipstick 0.2 mg/dL (0.2 mg/dL) Urine Leukocyte Esterase Negative (NEG) Urine RBC Occ /HPF (0-2) Urine WBC 1-4 /HPF (0-4) Urine Squamous Epithelial Cells Mod /LPF Urine Bacteria Moderate /HPF (0-FEW) Urine Mucus Slight /LPF Sodium Level 128 mmol/L (136-145) Potassium Level 3.5 mmol/L (3.5-5.1) Chloride Level 94 mmol/L (98-107) Carbon Dioxide Level 20 mmol/L (21-32) Anion Gap 14 (6-14) Blood Urea Nitrogen 47 mg/dL (7-20) Creatinine 2.7 mg/dL (0.6-1.0) Estimated GFR (Cockcroft-Gault) 22.1 Glucose Level 93 mg/dL (70-99) Calcium Level 8.2 mg/dL (8.5-10.1) Medications Current Medications Sodium Chloride 1,000 ml @ 125 mls/hr Q8H IV Last administered on 05/12/20at 01:48; Start 05/11/20 at 10:30 Vitals/I & O Vital Sign - Last 24 Hours 05/11/20 05/11/20 05/11/20 05/11/20 10:22 11:00 15:00 17:00 Temp 98.0 98.2 98.0 98.2 Pulse 70 71 Resp 16 18 18 B/P (MAP) 105/66 (79) 93/62 (72) 116/78 Pulse Ox 97 95 O2 Delivery Room Air Room Air Room Air 05/11/20 05/11/20 05/11/20 05/11/20 19:00 19:46 20:58 21:02 Temp 97.3 97.3 Pulse 70 68 Resp 18 16 B/P (MAP) 105/73 (84) 107/56 Pulse Ox 97 97 O2 Delivery Room Air Room Air Room Air 05/11/20 05/11/20 05/12/20 05/12/20 21:58 22:45 02:44 07:26 Temp 97.2 98.2 97.5 97.2 98.2 97.5 Pulse 61 62 69 Resp 18 19 18 16 B/P (MAP) 107/56 (73) 117/69 (85) 112/78 (89) Pulse Ox 96 96 96 97 O2 Delivery Room Air Room Air Room Air Room Air 05/12/20 09:21 Pulse 72 Intake and Output 6/09/2005/11/20 05/12/20 15:00 23:00 07:00 Intake Total 480 ml 120 ml 1100 ml Output Total 200 ml Balance 480 ml 120 ml 900 ml Justicifation of Admission Dx: Justifications for Admission: Justification of Admission Dx: Yes Chronic Renal Failure: Hypertension Hypertension: Cresendo Worsening of Sym MIRI KNOTT MD May 12, 2020 09:54
--- NOTE | 2020-05-12 10:17 | NUR ---
SS following for discharge planning. SS reviewed pt chart and discussed with pt RN. Pt is currently on room air. Pt on IV fluids to improve creatinine. Possible discharge to home tomorrow, 05/13/2002, per RN. SS will continue to follow for discharge planning.
--- NOTE | 2020-05-12 10:59 | PDOC ---
Renal-Progress Notes Subjective Notes Notes NO NEW COMPLAINTS History of Present Illness Hx of present illness STABLE Vitals Vitals Vital Signs Date Time Temp Pulse Resp B/P (MAP) Pulse Ox O2 Delivery O2 Flow Rate FiO2 05/12/20 10:49 98.3 63 20 94/61 (72) 97 Room Air 98.3 Weight Weight [ ] I.O. Intake and Output Intake and Output 05/12/20 07:00 Intake Total 1700 ml Output Total 200 ml Balance 1500 ml Intake Oral 700 ml IV Total 1000 ml Output Urine Total 200 ml # Voids 1 Labs Labs Laboratory Tests Test 05/12/20 01:43 05/12/20 03:50 Urine Collection Type Unknown Urine Color Yellow Urine Clarity Clear Urine pH 5.0 (<5.0-8.0) Urine Specific [place] 1.015 (1.000-1.030) Urine Protein Negative mg/dL (NEG-TRACE) Urine Glucose (UA) Negative mg/dL (NEG) Urine Ketones (Stick) Negative mg/dL (NEG) Urine Blood Negative (NEG) Urine Nitrite Negative (NEG) Urine Bilirubin Negative (NEG) Urine Urobilinogen Dipstick 0.2 mg/dL (0.2 mg/dL) Urine Leukocyte Esterase Negative (NEG) Urine RBC Occ /HPF (0-2) Urine WBC 1-4 /HPF (0-4) Urine Squamous Epithelial Cells Mod /LPF Urine Bacteria Moderate /HPF (0-FEW) Urine Mucus Slight /LPF Sodium Level 128 mmol/L (136-145) Potassium Level 3.5 mmol/L (3.5-5.1) Chloride Level 94 mmol/L (98-107) Carbon Dioxide Level 20 mmol/L (21-32) Anion Gap 14 (6-14) Blood Urea Nitrogen 47 mg/dL (7-20) Creatinine 2.7 mg/dL (0.6-1.0) Estimated GFR (Cockcroft-Gault) 22.1 Glucose Level 93 mg/dL (70-99) Calcium Level 8.2 mg/dL (8.5-10.1) Physical Exam Musculoskeletal: Osteoarthritis, Other Assessment Assessment IMP ELLA WITH CR OF 2.7 DUE TO RENAL RELATIVE HYPOPERFUSION MILD HYPONATREMIA HTN EMERGENCY HEADACHE DUE TO ABOVE CKD STAGE 3-STABLE SCLERADERMA PLAN OFF CARDENE GTT INCREASE IVF'S HOLD LARISSA-I FOR NOW D/W ATTENDING WILL FOLLOW VIOLA CHRISTIAN MD May 12, 2020 10:59
--- NOTE | 2020-05-12 16:19 | NUR ---
SS following up with discharge planning. PT/OT evaluated and recommended acute rehabilitation. SS met with pt to discuss discharge planning and acute rehabilitation. Pt declined inpatient rehabilitation. Pt stated that she needs to get home. She reported that her spouse has cancer and she needs to go back to work next month. Pt agreeable to home healthcare with no preference of company. Pt may benefit from walker. SS discussed with pt. Pt reported that she does not have a walker at home. SS will continue to follow for discharge planning.
[2020-05-12] MEDS: amLODIPine BESYLATE 10 MG TABLET PO SCH (20:40)
[2020-05-13 02:53] VITALS: BP 127/86
[2020-05-13] MEDS: IV NORMAL SALINE 1000ML BAG 1,000 ML IV SCH ×2 (03:29→11:01)
[2020-05-13 04:17] LABS: CALCIUM 8.1 mg/dL (8.5-10.1); CREATININE 1.9 mg/dL (0.6-1.0); GFR 33.1; POTASSIUM 3.7 mmol/L (3.5-5.1)
[2020-05-13 06:48] VITALS: BP 168/96
[2020-05-13] MEDS: FLUoxetine HCL 20 MG CAPSULE PO SCH (08:22)
[2020-05-13] MEDS: PANTOPRAZOLE 40 MG TABLET.DR. PO SCH (08:22)
[2020-05-13] MEDS: ASPIRIN 325 MG TABLET PO SCH (08:22)
[2020-05-13] MEDS: CARVEDILOL 12.5 MG TABLET. PO SCH (08:22)
--- NOTE | 2020-05-13 09:16 | PDOC2 ---
NEUROLOGY CONSULT Date of Admission Date of Admission DATE: 05/13/20 TIME: 09:09 Reason for Consult Reason for Consult: Weakness Referring Physician Referring Physician: Dr. Neal Source Source: Chart review, Patient History of Present Illness History of Present Illness The patient is a 55-year-old right-handed female admitted 4 days ago with headaches and found to have malignant hypertension. Her headaches are better. I am asked to see her because she has been noted to have gait disorder. She says that her legs have felt weak for about a week. She does have scleroderma. She denies neck or back pain. There is no history of stroke, seizure, or head injury, but she says she was told she had a mini stroke a few years ago. She does have a history of migraines. 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 Current Medications Current Medications Current Medications Dexamethasone Sodium Phosphate (Decadron) 10 mg 1X ONCE IV Last administered on 05/09/20at 17:56; Start 05/09/20 at 17:30; Stop 05/09/20 at 17:31; Status DC Prochlorperazine Edisylate (Compazine) 10 mg 1X ONCE IV Last administered on 05/09/20at 17:56; Start 05/09/20 at 17:30; Stop 05/09/20 at 17:31; Status DC Diphenhydramine HCl (Benadryl) 25 mg 1X ONCE IVP Last administered on 05/09/20at 17:57; Start 05/09/20 at 17:30; Stop 05/09/20 at 17:31; Status DC Sodium Chloride 1,000 ml @ 1,000 mls/hr 1X ONCE IV Last administered on 05/09/20at 17:56; Start 05/09/20 at 17:30; Stop 05/09/20 at 18:29; Status DC Hydralazine HCl (Apresoline Inj) 10 mg 1X ONCE IVP Last administered on 05/09/20at 17:57; Start 05/09/20 at 17:30; Stop 05/09/20 at 17:31; Status DC Nicardipine HCl 50 mg/Sodium Chloride 250 ml @ 25 mls/hr CONT PRN IV SEE I/O RECORD Last administered on 05/10/20at 00:45; Start 05/09/20 at 18:30; Stop 05/12/20 at 13:46; Status DC Lorazepam (Ativan Inj) 2 mg STK-MED ONCE .ROUTE ; Start 05/09/20 at 18:25; Stop 05/09/20 at 18:25; Status DC Lorazepam (Ativan Inj) 2 mg 1X ONCE IVP Last administered on 05/09/20at 19:00; Start 05/09/20 at 19:00; Stop 05/09/20 at 19:01; Status DC Ondansetron HCl (Zofran) 4 mg PRN Q8HRS PRN IV NAUSEA/VOMITING; Start 05/09/20 at 20:00; Stop 05/10/20 at 19:59; Status DC Morphine Sulfate (Morphine Sulfate) 2 mg PRN Q2HR PRN IV PAIN; Start 05/09/20 at 20:00; Stop 05/10/20 at 19:59; Status DC Hydralazine HCl (Apresoline Inj) 10 mg 1X ONCE IVP Last administered on 05/09/20at 20:35; Start 05/09/20 at 20:30; Stop 05/09/20 at 20:31; Status DC Labetalol HCl (Normodyne Iv Push) 10 mg 1X ONCE IVP Last administered on 05/09/20at 20:51; Start 05/09/20 at 20:45; Stop 05/09/20 at 20:46; Status DC Labetalol HCl (Normodyne Iv Push) 10 mg 1X ONCE IVP Last administered on 05/09/20at 21:37; Start 05/09/20 at 21:30; Stop 05/09/20 at 21:31; Status DC Labetalol HCl (Normodyne Iv Push) 10 mg PRN Q2HR PRN IVP HYPERTENSION Last administered on 05/09/20at 23:26; Start 05/09/20 at 22:00 Amlodipine Besylate (Norvasc) 10 mg HS PO Last administered on 05/12/20at 20:40; Start 05/10/20 at 21:00 Aspirin (Mami Aspirin) 325 mg DAILY PO Last administered on 05/13/20at 08:22; Start 05/10/20 at 11:00 Fluoxetine HCl (PROzac) 20 mg BID PO Last administered on 05/13/20at 08:22; Start 05/10/20 at 11:00 Acetaminophen/ Hydrocodone Bitart (Lortab 5/325) 1 tab PRN QID PRN PO PAIN Last administered on 05/11/20at 20:58; Start 05/10/20 at 10:15 Lisinopril (Prinivil) 40 mg BID PO Last administered on 05/10/20at 21:41; Start 05/10/20 at 11:00; Stop 05/12/20 at 09:56; Status DC Pantoprazole Sodium (Protonix) 40 mg DAILY PO Last administered on 05/13/20at 08:22; Start 05/11/20 at 09:00 Carvedilol (Coreg) 25 mg BIDWMEALS PO Last administered on 05/13/20at 08:22; Start 05/10/20 at 11:00 Hydralazine HCl (Apresoline) 100 mg BID PO Last administered on 05/10/20at 21:40; Start 05/10/20 at 21:00; Stop 05/11/20 at 11:48; Status DC Hydrochlorothiazide (Hydrodiuril) 50 mg DAILY PO ; Start 05/11/20 at 09:00; Stop 05/11/20 at 10:19; Status DC Meclizine HCl (Antivert) 25 mg PRN TID PRN PO DIZZINESS; Start 05/10/20 at 10:30 Ondansetron HCl (Zofran Odt) 4 mg PRN Q6HRS PRN PO NAUSEA/VOMITING; Start 05/10/20 at 10:30 Sodium Chloride 1,000 ml @ 125 mls/hr Q8H IV Last administered on 05/13/20at 03:29; Start 05/11/20 at 10:30 Active Scripts Active Aspirin 325 Mg Tablet 1 Tab PO DAILY Meclizine Hcl 25 Mg Tablet 1 Tab PO PRN TID Zofran (Ondansetron Hcl) 4 Mg Tablet 1 Tab PO Q6HRS PRN Reported Hydrochlorothiazide Tablet (Hydrochlorothiazide) 50 Mg Tablet 50 Mg PO DAILY Lisinopril 40 Mg Tablet 1 Tab PO BID Amlodipine Besylate 10 Mg Tablet 10 Mg PO HS Carvedilol 25 Mg Tablet 25 Mg PO BIDWMEALS Hydralazine Hcl 100 Mg Tablet 1 Tab PO BID [place] 5-325 Tablet (Acetaminophen/Hydrocodone Bitart) 1 Each Tablet 1-2 Tab PO Q4-6HRS Fluoxetine Hcl 20 Mg Capsule 1 Cap PO BID Pantoprazole Sodium (Pantoprazole Sodium) 40 Mg Tablet.dr 40 Mg PO DAILY Allergies Allergies: Coded Allergies: No Known Drug Allergies (Unverified , 07/08/15) ROS Review of System Negative for fever, chills, weight loss, shortness of breath, chest pain, indigestion, hematochezia, melena, and dysuria. Full 14-point review of systems is negative. Physical Exam Physical Examination General: Well-developed, well-nourished black female in no acute distress HEENT: Normocephalic andatraumatic.Temporal arteriespulsatile and nonte nder.Fundoscopic exam unremarkable Neck: Supple without bruit, no meningismus Musculoskeletal: Stability:see neurologic. Gait exam:see neurologic. Tone:see neurologic.Strength:see neurologic. Neurological: Mental Status:intact, orientation, memory, attention span/concentration, language, fund of knowledge normal. Cranial Nerves:Pupils equal and reactive to light, extraocular movements areintact, visual calvillo are full to confrontation. Facial sensation is normal. There is no facial asymmetry. Ves tibulo-ocular reflex is intact. Palate elevates and tongue protrudes in midline. All other cranial related problems are negative except as mentioned before.Reflexes:1+ and symmetric with flexor plantar responses. Motor:4/5 strength with normal tone and bulk. Coordination:Finger-nose finger and mdjy-[id number] testing are normal. Rapid alternating movements and fine finger movements are intact. Gait:apraxic. Sensory: stocking loss Vitals VITALS Vital Signs Date Time Temp Pulse Resp B/P (MAP) Pulse Ox O2 Delivery O2 Flow Rate FiO2 05/13/20 08:22 70 05/13/20 06:48 97.5 18 168/96 (120) 96 Room Air 97.5 Labs Labs Laboratory Tests Test 05/12/20 01:43 05/12/20 03:50 05/13/20 04:00 Urine Collection Type Unknown Urine Color Yellow Urine Clarity Clear Urine pH 5.0 (<5.0-8.0) Urine Specific [place] 1.015 (1.000-1.030) Urine Protein Negative mg/dL (NEG-TRACE) Urine Glucose (UA) Negative mg/dL (NEG) Urine Ketones (Stick) Negative mg/dL (NEG) Urine Blood Negative (NEG) Urine Nitrite Negative (NEG) Urine Bilirubin Negative (NEG) Urine Urobilinogen Dipstick 0.2 mg/dL (0.2 mg/dL) Urine Leukocyte Esterase Negative (NEG) Urine RBC Occ /HPF (0-2) Urine WBC 1-4 /HPF (0-4) Urine Squamous Epithelial Cells Mod /LPF Urine Bacteria Moderate /HPF (0-FEW) Urine Mucus Slight /LPF Sodium Level 128 mmol/L (136-145) 134 mmol/L (136-145) Potassium Level 3.5 mmol/L (3.5-5.1) 3.7 mmol/L (3.5-5.1) Chloride Level 94 mmol/L (98-107) 102 mmol/L (98-107) Carbon Dioxide Level 20 mmol/L (21-32) 22 mmol/L (21-32) Anion Gap 14 (6-14) 10 (6-14) Blood Urea Nitrogen 47 mg/dL (7-20) 39 mg/dL (7-20) Creatinine 2.7 mg/dL (0.6-1.0) 1.9 mg/dL (0.6-1.0) Estimated GFR (Cockcroft-Gault) 22.1 33.1 Glucose Level 93 mg/dL (70-99) 89 mg/dL (70-99) Calcium Level 8.2 mg/dL (8.5-10.1) 8.1 mg/dL (8.5-10.1) Laboratory Tests Test 05/13/20 04:00 Sodium Level 134 mmol/L (136-145) Potassium Level 3.7 mmol/L (3.5-5.1) Chloride Level 102 mmol/L (98-107) Carbon Dioxide Level 22 mmol/L (21-32) Anion Gap 10 (6-14) Blood Urea Nitrogen 39 mg/dL (7-20) Creatinine 1.9 mg/dL (0.6-1.0) Estimated GFR (Cockcroft-Gault) 33.1 Glucose Level 89 mg/dL (70-99) Calcium Level 8.1 mg/dL (8.5-10.1) Images Images CT HEAD WITHOUT CONTRAST History: Reason: headache / Spl. Instructions: / History: Comparison: None. Technique: Axial images are obtained of the head from the skull base through the vertex without IV contrast. Findings: Image quality is mildly limited due to motion artifact. No mass-effect, midline shift, extra-axial fluid collection, hemorrhage, or obvious acute infarction is identified. Basilar cisterns are patent. The ventricles and sulci are normal for patient age. There is moderate supratentorial white matter hypoattenuation. This is a nonspecific finding but is commonly due to chronic small vessel ischemic disease. Bone windows demonstrate no acute calvarial abnormality. Mucosal thickening right ethmoid sinus. The other visualized paranasal sinuses are clear. Mastoid air cells are well aerated. IMPRESSION: 1. No acute intracranial abnormality. 2. There are moderate subcortical and periventricular white matter changes. Considerations include chronic small vessel ischemic disease, demyelinating disease, or sequela of migraines. Assessment/Plan Assessment/Plan Impression: Gait disorder most likely due to peripheral neuropathy, I find no evidence of central nervous system disease on bedside examination but this is a rather acute change. Prior transit ischemic attack Neuropathy may be due to her scleroderma, rule out other causes. Recommendations: MRI of the brain Lab work for other causes of neuropathy Rehabilitation modalities She's going to need intermediate unit, it is unsafe for her to go home with this degree of gait disorder. Thank you for letting me help the patient's care. MICHAEL DASILVA MD May 13, 2020 09:16
[2020-05-13 10:14] VITALS: BP 133/93
--- NOTE | 2020-05-13 10:29 | PDOC ---
PROGRESS NOTES Subjective Subjective feels better ,want to go home Objective Objective Vital Signs Date Time Temp Pulse Resp B/P (MAP) Pulse Ox O2 Delivery O2 Flow Rate FiO2 05/13/20 10:14 97.6 65 18 133/93 (106) 97 Room Air 97.6 Intake and Output 05/13/20 07:00 Intake Total 580 ml Output Total 1700 ml Balance -1120 ml Intake Oral 580 ml Output Urine Total 1700 ml # Bowel Movements 2 Physical Exam Abdomen: Normal bowel sounds, Soft, No tenderness Heart: Regular rate Extremities: No cyanosis General: Alert, Oriented X3, Cooperative, No acute distress HEENT: Atraumatic Lungs: Clear to auscultation MUSCULOSKELETAL: No joint tenderness, No deformity Neuro: Normal speech, Sensation intact, Cranial nerves 3-12 NL Psych/Mental Status: Mental status NL Skin: No breakdown Diagnosis Problem List Problems Medical Problems: (1) Malignant essential hypertension Status: Acute Assessment Assessment Problems Medical Problems: (1) Malignant essential hypertension Status: Acute FINAL IMPRESSION: 1. Malignant hypertension. 2. Headaches secondary to hypertension. 3. Scleroderma. 4. Adgis-ji-qhgjelo kidney failure. 5. Anxiety. 6. Depression. PLAN: seen by neuro for weakness ,MRI ordered cr1.9 went down,( 1.6 base line) d/c iv fluids BP on the low side off nicardipine drip, d/c lisinopril for now sono kidney with doppler -neg renal consult appreciated monitor kidney function. home today Plan Plan of Care Problems Medical Problems: (1) Malignant essential hypertension Status: Acute Comment Review of Relevant I have reviewed the following items leti (where applicable) has been applied. Labs Laboratory Tests Test 05/13/20 04:00 Sodium Level 134 mmol/L (136-145) Potassium Level 3.7 mmol/L (3.5-5.1) Chloride Level 102 mmol/L (98-107) Carbon Dioxide Level 22 mmol/L (21-32) Anion Gap 10 (6-14) Blood Urea Nitrogen 39 mg/dL (7-20) Creatinine 1.9 mg/dL (0.6-1.0) Estimated GFR (Cockcroft-Gault) 33.1 Glucose Level 89 mg/dL (70-99) Calcium Level 8.1 mg/dL (8.5-10.1) C-Reactive Protein, Quantitative 3.4 mg/L (0-3.3) Thyroid Stimulating Hormone (TSH) 2.257 uIU/mL (0.358-3.74) Microbiology 05/12/20 Urine Culture - Final, Complete Vitals/I & O Vital Sign - Last 24 Hours 05/12/20 05/12/20 05/12/20 05/12/20 10:49 15:41 17:37 17:39 Temp 98.3 98.0 98.3 98.0 Pulse 63 69 75 Resp 20 18 B/P (MAP) 94/61 (72) 119/81 (94) 131/87 (102) Pulse Ox 97 96 O2 Delivery Room Air Room Air 05/12/20 05/12/20 05/12/20 05/12/20 19:15 19:16 20:40 22:48 Temp 97.5 97.7 97.5 97.7 Pulse 66 65 61 Resp 16 16 B/P (MAP) 105/68 (80) 165/103 128/74 (92) Pulse Ox 95 95 O2 Delivery Room Air Room Air Room Air 05/13/20 05/13/20 05/13/20 05/13/20 02:53 06:48 08:22 10:14 Temp 97.8 97.5 97.6 97.8 97.5 97.6 Pulse 70 69 70 65 Resp 18 18 18 B/P (MAP) 127/86 (100) 168/96 (120) 133/93 (106) Pulse Ox 95 96 97 O2 Delivery Room Air Room Air Room Air Intake and Output 05/12/20 05/12/20 05/13/20 15:00 23:00 07:00 Intake Total 300 ml 280 ml Output Total 400 ml 850 ml 450 ml Balance -100 ml -570 ml -450 ml Justicifation of Admission Dx: Justifications for Admission: Justification of Admission Dx: Yes Chronic Renal Failure: Hypertension Hypertension: [place] Worsening of Sym MIRI KNOTT MD May 13, 2020 10:29
[2020-05-13] MEDS ORDERED: CLON0.1T PO (10:32)
--- NOTE | 2020-05-13 10:53 | PDOC ---
Renal-Progress Notes Subjective Notes Notes FEELING BETTER. STILL SOME FATIGUE History of Present Illness Hx of present illness STABLE Vitals Vitals Vital Signs Date Time Temp Pulse Resp B/P (MAP) Pulse Ox O2 Delivery O2 Flow Rate FiO2 05/13/20 10:14 97.6 65 18 133/93 (106) 97 Room Air 97.6 Weight Weight [ ] I.O. Intake and Output Intake and Output 05/13/20 07:00 Intake Total 580 ml Output Total 1700 ml Balance -1120 ml Intake Oral 580 ml Output Urine Total 1700 ml # Bowel Movements 2 Labs Labs Laboratory Tests Test 05/13/20 04:00 Sodium Level 134 mmol/L (136-145) Potassium Level 3.7 mmol/L (3.5-5.1) Chloride Level 102 mmol/L (98-107) Carbon Dioxide Level 22 mmol/L (21-32) Anion Gap 10 (6-14) Blood Urea Nitrogen 39 mg/dL (7-20) Creatinine 1.9 mg/dL (0.6-1.0) Estimated GFR (Cockcroft-Gault) 33.1 Glucose Level 89 mg/dL (70-99) Calcium Level 8.1 mg/dL (8.5-10.1) C-Reactive Protein, Quantitative 3.4 mg/L (0-3.3) Thyroid Stimulating Hormone (TSH) 2.257 uIU/mL (0.358-3.74) Micro Micro Microbiology 05/12/20 Urine Culture - Final, Complete Physical Exam Musculoskeletal: Osteoarthritis Assessment Assessment IMP ELLA RESOLVED-CR 1.9 MILD HYPONATREMIA HTN EMERGENCY HEADACHE DUE TO ABOVE CKD STAGE 3-STABLE SCLERADERMA PLAN CONT LARISSA-I FOR NOW D/C PLANS NOTED LABS SATURDAY WITH DR KNOTT D/W ATTENDING WILL FOLLOW VIOLA CHRISTIAN MD May 13, 2020 10:53
[2020-05-13 14:14] VITALS: BP 162/108
--- NOTE | 2020-05-13 16:04 | NUR ---
SS following up with discharge planning. Walker order received. SS phoned and faxed walker order and clinical to [facility], ; fax [phone]. [facility] confirmed receipt of order.
--- NOTE | 2020-05-13 16:39 | NUR ---
Discharge: Teaching verbal and written. Reviewed medication, follow-up, AMS, Brain MRI, sodium, hypertension, labs, renal function, ect. paitent and patients verbalized understanding. Prescription for clonidine given to patient. Patient to follow up for outpatient MRI, labs and PT/OT. Prescription for walker given to Gi in social work. Patient and verbalized understanding. All belongings with patient including cell phone, purse, clothing and, security returned $660 in [place]. Patient assisted off of unit via wheelchair accompanied by AERONAUTICAL DESIGN ENGINEER and . MRI did not anser the phone, so outpatient MRI has not been set up yet.
--- NOTE | 2020-05-14 19:04 | PDOC ---
Provider Note Provider Note Discharge summary dictated.#[id number]. Justicifation of Admission Dx: Justifications for Admission: Justification of Admission Dx: Yes Acute Renal Failure: 75% Reduction in GFR Chronic Renal Failure: Hypertension Hypertension: Cresendo Worsening of Sym MIRI KNOTT MD May 14, 2020 19:04
--- NOTE | 2020-05-14 21:05 | DS ---
DATE OF DISCHARGE: 05/13/2020 REASON FOR ADMISSION TO THE HOSPITAL: Headache, accelerated hypertension. The patient has history of scleroderma. CONSULTATION: Neurology. PROCEDURES DONE: CT head, ultrasound of the kidneys. Arterial Doppler, kidneys. COMPLICATIONS NOTED: None. HOSPITAL COURSE: The patient is a 55-year-old female. The patient has a history of scleroderma, hypertension and the patient usually runs a creatinine of 1.6, was having headaches, dizzy. Blood pressure was high when she came in, 220/120. The patient was put on Cardene drip. The patient was seen by Renal because his creatinine went up to 2.5 and had ultrasound of the kidneys, medical disease, renal artery, no stenosis. The patient was seen by Neurology because she is kind of unsteady on the feet and CT head was negative. Small vessel disease. Recommended MRI. The patient did not want to stay in the hospital for MRI due to the MRI as outpatient. The patient's blood pressure was under control. Seen by physical therapy, recommended home health, but the patient refused and wants to go home and see Dr. Abdul in the office. The patient's creatinine came down to 1.9. Recommended to check labs, basic metabolic in 3-4 days and once the kidney comes back to normal, she can resume her Prinivil which is on hold because of the acute kidney failure. FINAL DIAGNOSES: 1. Malignant hypertension. 2. Acute renal insufficiency secondary to scleroderma. 3. Metabolic encephalopathy with possible small vessel disease in the brain, causing unsteady gait. 4. Anxiety, depression, peptic ulcer disease, stable. DISPOSITION: Home. Follow up with PCP. Check blood test in 3-4 days. MIRI KNOTT MD DR: LINCOLN/darrell JOB#: [id number] / [id number] Aldo Cristobal MD [facility]ENTERJanet
[2020-05-16 16:10] LABS: ALPHA 1 0.2 g/dL (0.0-0.4); ALPHA 2 0.6 g/dL (0.4-1.0); GAMMA 1.6 g/dL (0.4-1.8); PROTEIN TOTAL 6.5 g/dL (6.0-8.5); SPEP AG RATIO 0.9 (0.7-1.7)
[2020-05-17 20:08] LABS: ANA INTERP Positive (.)
== END 2020-05-13 16:30 | disposition home or self-care (01) | DRG 304 ==
LOC: ER 16:53 → 2 SOUTH 21:34
PROVIDERS: ADMIT Internal Medicine; ATTEND Internal Medicine
DX: I16.1 Hypertensive emergency (principal); N17.0 Acute kidney failure with tubular necrosis; G93.41 Metabolic encephalopathy; E87.1 Hypo-osmolality and hyponatremia; N18.3 Chronic kidney disease, stage 3 (moderate); F32.9 Major depressive disorder, single episode, unspecified; F41.9 Anxiety disorder, unspecified; G62.9 Polyneuropathy, unspecified; I12.9 Hypertensive chronic kidney disease with stage 1 through stage 4 chronic kidney disease, or unspecified chronic kidney disease; I27.20 Pulmonary hypertension, unspecified; I48.91 Unspecified atrial fibrillation; J44.9 Chronic obstructive pulmonary disease, unspecified; M34.9 Systemic sclerosis, unspecified; Z82.3 Family history of stroke; Z82.49 Family history of ischemic heart disease and other diseases of the circulatory system; Z83.3 Family history of diabetes mellitus; Z86.73 Personal history of transient ischemic attack (TIA), and cerebral infarction without residual deficits; Z87.891 Personal history of nicotine dependence; F41.8 Other specified anxiety disorders; G43.909 Migraine, unspecified, not intractable, without status migrainosus; K21.9 Gastro-esophageal reflux disease without esophagitis; M19.90 Unspecified osteoarthritis, unspecified site; K27.9 Peptic ulcer, site unspecified, unspecified as acute or chronic, without hemorrhage or perforation
CPT/HCPCS: 36415; 70450; 71045; 76770; 80048; 80076; 81001; 83880; 84165; 84443; 84484; 85007; 85025; 85610; 85730; 86038; 86140; 87086; 93005; 93975; 96361; 96374; 96375; 96376; 99285; J0360; J0780; J1100; J1200; J2060; J3490; J7030; J7050; 97110-GP; 97530-GO; 97530-GP; 97535-GO; G0378